=== PATIENT | male | born 1965 | race Caucasian/White ===

== ENCOUNTER → 2017-01-18 | Outpatient (CLI) | payer MEDICARE ==
--- NOTE | 2017-01-18 12:04 | XR ---
Cervical spine HISTORY: Pain down left arm 5 views of the cervical spine submitted on 7 images Correlation to prior exam 05/04/2012 There is multilevel spondylosis. C7-T1 not well seen. Some loss of disc height present at C2-3, C3-4, C5-6. Cervical vertebral bodies show preserved height and alignment, bone mineralization at the visu alized levels. Some foraminal encroachment is present bilaterally at C3-4, C5-6 due to lateral extens ion of endplates. IMPRESSION: Similar findings to prior exam. Degenerative disc disease with foraminal encroachment.
== END | disposition home or self-care (01) ==
LOC: RADXRMAIN 11:00
PROVIDERS: ATTEND Internal Medicine
DX: M50.30 Other cervical disc degeneration, unspecified cervical region (principal)
CPT/HCPCS: 72050

== ENCOUNTER 2022-06-17 16:57 | Inpatient (IN) | payer MEDICARE ==
[2022-06-17] MEDS ORDERED: SODIUM CHLORIDE 0.9% 500 ML 500 ML IV ONE (17:38)
--- NOTE | 2022-06-17 17:38 | ED ---
Weakness HPI - General Chief complaint: Weakness Stated complaint: Dizziness Time Seen by Provider: 06/17/22 17:15 Source: EMS Mode of arrival: EMS Limitations: no limitations - History of Present Illness Initial comments: 56-year-old male with past history of hypertension, coronary artery disease, CVA, chronic renal failure who presents to the emergency department with weakness and presyncope. He is supposed to be on several medications however states he has not taken them in over a year. He stopped seeking medical care when Covid hit and has not been out of the house since. He has had chronic lower extremity wounds with recurrent cellulitis. He used to see wound care once a week however he has been doing his own wrappings recently. He presents today because he was ambulating to go to the bathroom when he became extremely short of breath and that he was given a passout. Called to his nephew and instructed him to call 911. He denies any chest pain. Does admit to shortness of breath. Has weeping lower extremities however states that this has not been any worse than "what it has been over the past 15 years". He denies any abdomin al pain. No black or bloody stools. No other alleviating, precipitating or modifying factors - Related Data Home Medications Medication Instructions Recorded Confirmed No Known Home Medications 06/17/22 06/17/22 Allergies Allergy/AdvReac Type Severity Reaction Status Date / Time Penicillins Allergy Unknown Unknown Verified 06/09/18 08:22 Childhood adhesive Allergy Rash/Hives Verified 06/09/18 08:22 peanut AdvReac Nausea & Verified 06/09/18 08:22 Vomiting Review of Systems ROS Statement: Those systems with pertinent positive or pertinent negative responses have been documented in the HPI. ROS Other: All systems not noted in ROS Statement are negative. Past Medical History Past Medical History: Blood Disorder, Coronary Artery Disease (CAD), Heart Failure, CVA/TIA, Diabetes Mellitus, Hyperlipidemia, Hypertension, Renal Disease, Sleep Apnea/CPAP/BIPAP Additional Past Medical History / Comment(s): Chronic back pain; USES C-PAP; kidney stones, RENAL FAILURE; NEUROPATHY. WEARS COPPER FITBOOTS D/T PVD. POSS CVA 10/2013, PVD History of Any Multi-Drug Resistant Organisms: MRSA, VRE Date of last positivie culture/infection: 05/09/19-MRSA; 07/05/08-VRE MDRO Source:: Right Leg-MRSA; VRE Leg wound Additional Past Surgical History / Comment(s): kidney stones removed, HX DR ARMENTA TUBE, CYSTOSCOPY; DEBRIDMENTS TO LEGS X6 IN 2009 Past Anesthesia/Blood Transfusion Reactions: No Reported Reaction Past Psychological History: Anxiety, Depression Past Alcohol Use History: None Reported Past Drug Use History: None Reported - Past Family History Mother Family Medical History: Cancer Father Family Medical History: Hypertension General Exam Limitations: no limitations General appearance: alert, in no apparent distress Head exam: Present: atraumatic, normocephalic, normal inspection ENT exam: Present: mucous membranes dry Neck exam: Present: normal inspection. Absent: tenderness, meningismus, lymphadenopathy Respiratory exam: Present: normal lung sounds bilaterally. Absent: respiratory distress, wheezes, rales, rhonchi, stridor Cardiovascular Exam: Present: regular rate, normal rhythm, normal heart sounds. Absent: systolic murmur, diastolic murmur, rubs, gallop, clicks Extremities exam: Present: other (cellulitis b/l le with open, purulent wounds. malodorous) Neurological exam: Present: alert, oriented X3, CN II-XII intact Psychiatric exam: Present: normal affect Course Vital Signs 06/17/22 06/17/22 06/17/22 17:12 17:17 17:30 Temperature 98.8 F Pulse Rate 96 100 Respiratory 22 20 15 Rate Blood Pressure 95/52 95/52 O2 Sat by Pulse 96 Oximetry 06/17/22 06/17/22 06/17/22 17:35 18:00 18:30 Temperature Pulse Rate 103 H 101 H 89 Respiratory 18 21 17 Rate Blood Pressure 131/60 131/60 122/62 O2 Sat by Pulse 96 Oximetry 06/17/22 06/17/22 06/17/22 19:00 19:30 20:00 Temperature Pulse Rate 87 92 83 Respiratory 18 15 20 Rate Blood Pressure 113/50 124/59 140/65 O2 Sat by Pulse Oximetry EKG Findings - EKG Comments: EKG Findings:: EKG demonstrates sinus rhythm with a rate of 89. NV interval 203. QRS 116. QTC of 434. There is a left bundle branch block. No acute ST segment elevations Medical Decision Making - Medical Decision Making Was pt. sent in by a medical professional or institution (Dr., PA, VEHICLE WASHER, urgent care, hospital, or fdc...) When possible be specific @ -No Did you speak to anyone other than the patient for history (EMS, parent, family, police, friend...)? What history was obtained from this source @ -Patients nephew Did you review nursing and triage notes (agree or disagree)? Why? @ -I reviewed and agree with nursing and triage notes Were old charts reviewed (outside hosp., previous admission, EMS record, old EKG, old radiological studies, urgent care reports/EKG's, fdc records)? Report findings @ -No old charts were reviewed Differential Diagnosis (chest pain, altered mental status, abdominal pain women, abdominal pain men, vaginal bleeding, weakness, fever, dyspnea, syncope, headache, dizziness, GI bleed, back pain, seizure, CVA, palpatations, mental health, musculoskeletal)? @ -cellulitis, gangrene, venous stasis ulcers, necrotizing fascitis EKG interpreted by me (3pts min.). @ -yes X-rays interpreted by me (1pt min.). @ -yes CT interpreted by me (1pt min.). @ -None done U/S interpreted by me (1pt. min.). @ -None done What testing was considered but not performed or refused? (CT, X-rays, U/S, labs)? Why? @ -None What meds were considered but not given or refused? Why? @ -None Did you discuss the management of the patient with other professionals (professionals i.e. SARAHI Collins, VEHICLE WASHER, lab, RT, psych nurse, high school social studies teacher, materials and processes manager, teacher, special weapons unit officer, case briefer)? Give summary @ -Dr caballero Was smoking cessation discussed for >3mins.? @ -No Was critical care preformed (if so, how long)? @ -No Were there social determinants of health that impacted care today? How? (Homelessness, low income, unemployed, alcoholism, drug addiction, transportation, low edu. Level, literacy, decrease access to med. care, fci, rehab)? @ -obesity making transportation difficult Was there de-escalation of care discussed even if they declined (Discuss DNR or withdrawal of care, Hospice)? DNR status @ -No What co-morbidities impacted this encounter? (DM, HTN, Smoking, COPD, CAD, Cancer, CVA, ARF, Chemo, Hep., AIDS, mental health diagnosis, sleep apnea, morbid obesity)? @ -obesity, dm, parkinsons Was patient admitted / discharged? Hospital course, mention meds given and route, prescriptions, significant lab abnormalities, going to OR and other pertinent info. @ -Upon arrival patient was placed into room 6. There are history of physical exam is performed. IV access is established. Patient was given a 500 mL bolus of normal saline. IV is established and laboratories is a conducted. White blood cell count 18.7. Hemoglobin 7.6. Creatinine 1.38. Glucose 183. Lactic acid is 3.5. Chest x-ray demonstrates no fluid overload and therefore he is started on 75 mL per hour. Lower extremities are weeping. I did take a culture. He is started on IV clindamycin after blood cultures are obtained. Recommended admission and spoke with Dr. Nieves who agreed to admit the patient. I we will place Dr. Bonilla on consult as well as wound care. Patient was agreeable and awaiting a bed on the floor Undiagnosed new problem with uncertain prognosis? @ -yes Drug Therapy requiring intensive monitoring for toxicity (Heparin, Nitro, Insulin, Cardizem)? @ -No Were any procedures done? @ -No Diagnosis/symptom? @ - acute b/l le cellulitis, anemia, leuocytosis, medical non compliance Acute, or Chronic, or Acute on Chronic? @ -acute Uncomplicated (without systemic symptoms) or Complicated (systemic symptoms)? @ -complicated Side effects of treatment? @ -No Exacerbation, Progression, or Severe Exacerbation? @ -No Poses a threat to life or bodily function? How? (Chest pain, USA, MD, pneumonia, PE, COPD, DKA, ARF, appy, cholecystitis, CVA, Diverticulitis, Homicidal, Suicidal, threat to staff... and all critical care pts) @ -yes - Lab Data Result diagrams: 06/23/22 08:04 06/23/22 08:04 Lab Results 06/17/22 06/17/22 06/17/22 Range/Units 17:40 17:40 17:40 WBC 18.7 H (3.8-10.6) k/uL RBC 3.22 L (4.30-5.90) m/uL Hgb 7.6 L (13.0-17.5) gm/dL Hct 25.9 L (39.0-53.0) % MCV 80.5 (80.0-100.0) fL MCH 23.8 L (25.0-35.0) pg MCHC 29.5 L (31.0-37.0) g/dL RDW 17.3 H (11.5-15.5) % Plt Count 387 (150-450) k/uL MPV 7.7 Neutrophils % 79 % Lymphocytes % 12 % Monocytes % 4 % Eosinophils % 4 % Basophils % 0 % Neutrophils # 14.7 H (1.3-7.7) k/uL Lymphocytes # 2.3 (1.0-4.8) k/uL Monocytes # 0.7 (0-1.0) k/uL Eosinophils # 0.7 (0-0.7) k/uL Basophils # 0.0 (0-0.2) k/uL Hypochromasia Marked Anisocytosis Slight Microcytosis Slight PT 11.6 (9.0-12.0) sec INR 1.1 (<1.2) APTT 21.1 L (22.0-30.0) sec Sodium 139 (137-145) mmol/L Potassium 5.6 H (3.5-5.1) mmol/L Chloride 106 (98-107) mmol/L Carbon Dioxide 21 L (22-30) mmol/L Anion Gap 12 mmol/L BUN 52 H (9-20) mg/dL Creatinine 1.38 H (0.66-1.25) mg/dL Est GFR (CKD-EPI)AfAm 65 (>60 ml/min/1.73 sqM) Est GFR (CKD-EPI)NonAf 56 (>60 ml/min/1.73 sqM) Glucose 183 H (74-99) mg/dL Lactic Ac Sepsis Rflx Plasma Lactic Acid Cesario (0.7-2.0) mmol/L Calcium 8.2 L (8.4-10.2) mg/dL Magnesium 1.6 (1.6-2.3) mg/dL Total Bilirubin 0.3 (0.2-1.3) mg/dL AST 21 (17-59) U/L ALT 20 (4-49) U/L Alkaline Phosphatase 112 (38-126) U/L Troponin I (0.000-0.034) ng/mL NT-Pro-B Natriuret Pep pg/mL Total Protein 7.0 (6.3-8.2) g/dL Albumin 3.0 L (3.5-5.0) g/dL TSH 3.890 (0.465-4.680) mIU/L 06/17/22 06/17/22 06/17/22 Range/Units 17:40 17:40 17:40 WBC (3.8-10.6) k/uL RBC (4.30-5.90) m/uL Hgb (13.0-17.5) gm/dL Hct (39.0-53.0) % MCV (80.0-100.0) fL MCH (25.0-35.0) pg MCHC (31.0-37.0) g/dL RDW (11.5-15.5) % Plt Count (150-450) k/uL MPV Neutrophils % % Lymphocytes % % Monocytes % % Eosinophils % % Basophils % % Neutrophils # (1.3-7.7) k/uL Lymphocytes # (1.0-4.8) k/uL Monocytes # (0-1.0) k/uL Eosinophils # (0-0.7) k/uL Basophils # (0-0.2) k/uL Hypochromasia Anisocytosis Microcytosis PT (9.0-12.0) sec INR (<1.2) APTT (22.0-30.0) sec Sodium (137-145) mmol/L Potassium (3.5-5.1) mmol/L Chloride (98-107) mmol/L Carbon Dioxide (22-30) mmol/L Anion Gap mmol/L BUN (9-20) mg/dL Creatinine (0.66-1.25) mg/dL Est GFR (CKD-EPI)AfAm (>60 ml/min/1.73 sqM) Est GFR (CKD-EPI)NonAf (>60 ml/min/1.73 sqM) Glucose (74-99) mg/dL Lactic Ac Sepsis Rflx Plasma Lactic Acid Cesario 3.5 H* (0.7-2.0) mmol/L Calcium (8.4-10.2) mg/dL Magnesium (1.6-2.3) mg/dL Total Bilirubin (0.2-1.3) mg/dL AST (17-59) U/L ALT (4-49) U/L Alkaline Phosphatase (38-126) U/L Troponin I <0.012 (0.000-0.034) ng/mL NT-Pro-B Natriuret Pep 1410 pg/mL Total Protein (6.3-8.2) g/dL Albumin (3.5-5.0) g/dL TSH (0.465-4.680) mIU/L 06/17/22 Range/Units 18:16 WBC (3.8-10.6) k/uL RBC (4.30-5.90) m/uL Hgb (13.0-17.5) gm/dL Hct (39.0-53.0) % MCV (80.0-100.0) fL MCH (25.0-35.0) pg MCHC (31.0-37.0) g/dL RDW (11.5-15.5) % Plt Count (150-450) k/uL MPV Neutrophils % % Lymphocytes % % Monocytes % % Eosinophils % % Basophils % % Neutrophils # (1.3-7.7) k/uL Lymphocytes # (1.0-4.8) k/uL Monocytes # (0-1.0) k/uL Eosinophils # (0-0.7) k/uL Basophils # (0-0.2) k/uL Hypochromasia Anisocytosis Microcytosis PT (9.0-12.0) sec INR (<1.2) APTT (22.0-30.0) sec Sodium (137-145) mmol/L Potassium (3.5-5.1) mmol/L Chloride (98-107) mmol/L Carbon Dioxide (22-30) mmol/L Anion Gap mmol/L BUN (9-20) mg/dL Creatinine (0.66-1.25) mg/dL Est GFR (CKD-EPI)AfAm (>60 ml/min/1.73 sqM) Est GFR (CKD-EPI)NonAf (>60 ml/min/1.73 sqM) Glucose (74-99) mg/dL Lactic Ac Sepsis Rflx Y Plasma Lactic Acid Cesario (0.7-2.0) mmol/L Calcium (8.4-10.2) mg/dL Magnesium (1.6-2.3) mg/dL Total Bilirubin (0.2-1.3) mg/dL AST (17-59) U/L ALT (4-49) U/L Alkaline Phosphatase (38-126) U/L Troponin I (0.000-0.034) ng/mL NT-Pro-B Natriuret Pep pg/mL Total Protein (6.3-8.2) g/dL Albumin (3.5-5.0) g/dL TSH (0.465-4.680) mIU/L Disposition Clinical Impression: Bilateral lower leg cellulitis, Anemia, Leukocytosis, Lactic acidosis Disposition: ADMITTED IP TO THIS [facility] Condition: Serious Is patient prescribed a controlled substance at d/c from ED?: No Time of Disposition: 20:24 Decision to Admit Reason: Admit from EC Decision Date: 06/17/22 Decision Time: 20:24
[2022-06-17] MEDS ORDERED: VANCOMYCIN IV PER PHARMACY 1 EACH MISC MISCELLANE PRN (17:42)
[2022-06-17] MEDS ORDERED: CLINDAMYCIN 600 MG in DEXTROSE 5% IN WATER 50 ML IVPB STA ×2 (17:48)
[2022-06-17] MEDS ORDERED: VANCOMYCIN 2,500 MG in SODIUM CHLORIDE 0.9% 500 ML 500 ML IVPB STA (17:50)
[2022-06-17 17:54] LABS: Anisocytosis Slight; Basophils % (A) 0 %; Eosinophils # (A) 0.7 k/uL (0-0.7); Eosinophils % (A) 4 %; HCT 25.9 % (39.0-53.0); HGB 7.6 gm/dL (13.0-17.5); Hypochromasia Marked; Lymphocytes # (A) 2.3 k/uL (1.0-4.8); Lymphocytes % (A) 12 %; MCH 23.8 pg (25.0-35.0); MCHC 29.5 g/dL (31.0-37.0); MCV 80.5 fL (80.0-100.0); Mean Platelet Volume 7.7; Microcytosis Slight; Monocytes # (A) 0.7 k/uL (0-1.0); Monocytes % (A) 4 %; Neutrophils # (A) 14.7 k/uL (1.3-7.7); Neutrophils % (A) 79 %; Platelet Count 387 k/uL (150-450); RBC 3.22 m/uL (4.30-5.90); RDW 17.3 % (11.5-15.5); WBC 18.7 k/uL (3.8-10.6)
[2022-06-17 18:12] LABS: INR 1.1 (<1.2); Prothrombin Time 11.6 sec (9.0-12.0)
[2022-06-17 18:13] LABS: ALT 20 U/L (4-49); AST 21 U/L (17-59); African American GFR (CKD) 65 (>60 ml/min/1.73 sqM); Alkaline Phosphatase 112 U/L (38-126); Anion Gap 12 mmol/L; Blood Urea Nitrogen 52 mg/dL (9-20); Calcium 8.2 mg/dL (8.4-10.2); Carbon Dioxide 21 mmol/L (22-30); Chloride 106 mmol/L (98-107); Glucose 183 mg/dL (74-99); Magnesium 1.6 mg/dL (1.6-2.3); Non-African American GFR(CKD) 56 (>60 ml/min/1.73 sqM); Potassium 5.6 mmol/L (3.5-5.1); Sodium 139 mmol/L (137-145); Total Bilirubin 0.3 mg/dL (0.2-1.3)
[2022-06-17 18:14] LABS: Partial Thromboplastin Time 21.1 sec (22.0-30.0)
--- NOTE | 2022-06-17 19:25 | XR ---
EXAMINATION: XR chest 2V: 06/17/2022 5:58 PM CLINICAL INDICATION: Weakness TECHNIQUE: Frontal and lateral views COMPARISON: 10/06/2014 frontal and lateral views FINDINGS: The overlying soft tissues are prominent. Hemidiaphragms are elevated consistent with relatively low lung inflation at the moment of x-ray exposure. Lungs appear to be clear. The pleural spaces are negative. The cardiac silhouette appears to be moderately enlarged, unchanged. The skeletal structures and soft tissues are negative for acute findings. IMPRESSION: No definite acute radiographic process.
[2022-06-17] MEDS ORDERED: fentaNYL (PF) 50 MCG/ML 2 ML AMP IVP STA (19:43)
[2022-06-17] MEDS ORDERED: NALOXONE 0.4 MG/ML 1 ML VIAL IV PRN (20:24)
[2022-06-17] MEDS ORDERED: MAGNESIUM SULFATE-D5W PMX 1 GM in DEXTROSE/WATER 1 100ML.BAG IVPB ONE (20:31)
[2022-06-17] MEDS: SODIUM CHLORIDE 0.9% 1,000 ML IV SCH (20:40)
[2022-06-17 21:55] LABS: Appearance,Urine Clear (Clear); Bilirubin,Urine Negative (Negative); Blood,Urine Negative (Negative); Color,Urine Yellow; Glucose,Urine (UA) Negative (Negative); Ketones,Urine Negative (Negative); Leukocyte Esterase,Urine Negative (Negative); Nitrite,Urine Negative (Negative); Protein,Urine Trace (Negative); Specific Gravity,Urine 1.015 (1.001-1.035); Urobilinogen,Urine <2.0 mg/dL (<2.0)
[2022-06-18] MEDS: CLINDAMYCIN 600 MG in DEXTROSE 5% IN WATER 50 ML IVPB SCH ×8 (00:44→23:30)
[2022-06-18 07:17] LABS: Glucose,Whole Blood 143 mg/dL (70-110)
[2022-06-18] MEDS ORDERED: DEXTROSE 50% SYRINGE 50 ML IVP PRN ×2 (07:23)
[2022-06-18] MEDS: INSULIN ASPART (NovoLOG) 100 UNIT/ML VIAL SQ SCH ×4 (07:47→21:26)
[2022-06-18] MEDS: SODIUM CHLORIDE 0.9% 1,000 ML IV SCH ×2 (10:27→23:31)
[2022-06-18] MEDS: VANCOMYCIN 2,500 MG in SODIUM CHLORIDE 0.9% 500 ML 500 ML IVPB SCH (10:27)
[2022-06-18 11:27] LABS: Anion Gap 7.1 mmol/L (10.00-18.00); BUN/Creat Ratio 36.25 Ratio (12.00-20.00); Blood Urea Nitrogen 49.3 mg/dL (9.0-27.0); Calcium 8.2 mg/dL (8.7-10.3); Potassium 4.9 mmol/L (3.5-5.5)
--- NOTE | 2022-06-18 11:28 | P.HPIM ---
History of Present Illness H&P Date: 06/18/22 Chief Complaint: Weakness bilateral lower extremity cellulitis leukocytosis This is a 56-year-old male patient who presented to the ER with concerns of weakness in lower extremity wounds. Patient reports he has had increasing weakness prompting him to call EMS for further assistance Patient has not been into see his primary care doctor in almost years has not taken his medications in over a year. Patient reports that he did not have easy accessibility to rides and getting out of the house. Patient reports he has been dealing with lower extremity wounds that he has been treating at home without improvement. Patient has a past medical history of hypertension, coronary artery disease, CVA, chronic renal disease. Chest x-ray completed showing no definitive acute r adiographic process. Troponin negative. WBC 18.7. Hemoglobin 7.6.. At this time patient has been started on IV antibiotics blood cultures ordered. Wound cultures ordered. Infectious disease and wound care service is consulted. Will reorder home medication according to most recent PCP visit. We'll also consult PT OT and social work services for discharge planning and assessment of home situation Review of Systems Please refer to HPI otherwise unremarkable Past Medical History Past Medical History: Blood Disorder, Coronary Artery Disease (CAD), Heart Failure, CVA/TIA, Diabetes Mellitus, Hyperlipidemia, Hypertension, Renal Disease, Sleep Apnea/CPAP/BIPAP Additional Past Medical History / Comment(s): Chronic back pain; USES C-PAP; kidney stones, RENAL FAILURE; NEUROPATHY. WEARS COPPER FITBOOTS D/T PVD. POSS CVA 10/2013, PVD History of Any Multi-Drug Resistant Organisms: MRSA, VRE Date of last positivie culture/infection: 05/09/19-MRSA; 07/05/08-VRE MDRO Source:: Right Leg-MRSA; VRE Leg wound Additional Past Surgical History / Comment(s): kidney stones removed, HX DRAINAGE TUBE, CYSTOSCOPY; DEBRIDMENTS TO LEGS X6 IN 2008 Past Anesthesia/Blood Transfusion Reactions: No Reported Reaction Past Psychological History: Anxiety, Depression Past Alcohol Use History: None Reported Past Drug Use History: None Reported - Past Family History Mother Family Medical History: Cancer Father Family Medical History: Hypertension Medications and Allergies Home Medications Medication Instructions Recorded Confirmed Type No Known Home Medications 06/17/22 06/17/22 History Allergies Allergy/AdvReac Type Severity Reaction Status Date / Time Penicillins Allergy Unknown Unknown Verified 06/09/18 08:22 Childhood adhesive Allergy Rash/Hives Verified 06/09/18 08:22 peanut AdvReac Nausea & Verified 06/09/18 08:22 Vomiting Physical Exam Vitals: Vital Signs Temp Pulse Pulse Resp BP BP Pulse Ox 06/18/22 07:12 97.4 F L 85 18 124/65 94 L 06/18/22 01:25 98.3 F 88 18 146/64 95 06/17/22 21:53 97.7 F 82 18 117/62 94 L 06/17/22 20:00 83 20 140/65 06/17/22 19:30 92 15 124/59 06/17/22 19:00 87 18 113/50 06/17/22 18:30 89 17 122/62 06/17/22 18:00 101 H 21 131/60 06/17/22 17:35 103 H 18 131/60 96 06/17/22 17:30 100 15 95/52 06/17/22 17:17 20 06/17/22 17:12 98.8 F 96 22 95/52 96 Intake and Output 06/17/22 06/18/22 06/18/22 22:59 06:59 14:59 Intake Total 650 Balance 650 Intake: Intake, IV Titration 650 Amount Clindamycin 600 mg In 50 Dextrose 5% in Water 50 ml @ 50 mls/hr IVPB Q8HR [facility] Rx#:[id number] Magnesium Sulfate-D5w Pmx 100 1 gm In Dextrose/Water 1 100ml.bag @ 100 mls/hr IVPB ONCE ONE Rx#: [id number] Vancomycin 2,500 mg In 500 Sodium Chloride 0.9% 500 ml 500 ml @ 167 mls/hr IVPB Q16H [facility] Rx#: [id number] Other: Voiding Method Bedpan # Voids 2 Weight 185.973 kg Head normocephalic Neck supple Lungs clear to auscultation bilaterally no wheezing or crackles Heart regular rate and rhythm S1-S2, no rub or gallop Abdomen is soft nontender nondistended positive bowel sounds no hepatosplenomegaly Extremities bilateral lower extremity wounds and cellulitis. Serosanguineous drainage noted Neuro alert and orientated to 3 Results CBC & Chem 7: 06/17/22 17:40 06/18/22 07:22 Labs: Abnormal Lab Results - Last 24 Hours (Table) 06/17/22 06/17/22 06/17/22 Range/Units 17:40 17:40 17:40 WBC 18.7 H (3.8-10.6) k/uL RBC 3.22 L (4.30-5.90) m/uL Hgb 7.6 L (13.0-17.5) gm/dL Hct 25.9 L (39.0-53.0) % MCH 23.8 L (25.0-35.0) pg MCHC 29.5 L (31.0-37.0) g/dL RDW 17.3 H (11.5-15.5) % Neutrophils # 14.7 H (1.3-7.7) k/uL APTT 21.1 L (22.0-30.0) sec Potassium 5.6 H (3.5-5.1) mmol/L Carbon Dioxide 21 L (22-30) mmol/L BUN 52 H (9-20) mg/dL Creatinine 1.38 H (0.66-1.25) mg/dL Glucose 183 H (74-99) mg/dL POC Glucose (mg/dL) (70-110) mg/dL Hemoglobin A1c (0.0-6.0) % Plasma Lactic Acid Cesario (0.7-2.0) mmol/L Calcium 8.2 L (8.4-10.2) mg/dL Albumin 3.0 L (3.5-5.0) g/dL Urine Protein (Negative) 06/17/22 06/17/22 06/17/22 Range/Units 17:40 21:20 22:54 WBC (3.8-10.6) k/uL RBC (4.30-5.90) m/uL Hgb (13.0-17.5) gm/dL Hct (39.0-53.0) % MCH (25.0-35.0) pg MCHC (31.0-37.0) g/dL RDW (11.5-15.5) % Neutrophils # (1.3-7.7) k/uL APTT (22.0-30.0) sec Potassium (3.5-5.1) mmol/L Carbon Dioxide (22-30) mmol/L BUN (9-20) mg/dL Creatinine (0.66-1.25) mg/dL Glucose (74-99) mg/dL POC Glucose (mg/dL) (70-110) mg/dL Hemoglobin A1c 6.8 H (0.0-6.0) % Plasma Lactic Acid Cesario 3.5 H* (0.7-2.0) mmol/L Calcium (8.4-10.2) mg/dL Albumin (3.5-5.0) g/dL Urine Protein Trace H (Negative) 06/18/22 06/18/22 Range/Units 07:16 07:22 WBC (3.8-10.6) k/uL RBC (4.30-5.90) m/uL Hgb (13.0-17.5) gm/dL Hct (39.0-53.0) % MCH (25.0-35.0) pg MCHC (31.0-37.0) g/dL RDW (11.5-15.5) % Neutrophils # (1.3-7.7) k/uL APTT (22.0-30.0) sec Potassium (3.5-5.1) mmol/L Carbon Dioxide (22-30) mmol/L BUN (9-20) mg/dL Creatinine 1.38 H (0.66-1.25) mg/dL Glucose (74-99) mg/dL POC Glucose (mg/dL) 143 H (70-110) mg/dL Hemoglobin A1c (0.0-6.0) % Plasma Lactic Acid Cesario (0.7-2.0) mmol/L Calcium (8.4-10.2) mg/dL Albumin (3.5-5.0) g/dL Urine Protein (Negative) Microbiology - Last 24 Hours (Table) 06/17/22 17:40 Blood Culture Gram Stain - Preliminary Blood 06/17/22 17:40 Blood Culture - Final Blood 06/17/22 17:40 Anaerobic Culture - Preliminary Leg - Left 06/17/22 17:40 Wound Culture - Preliminary Leg - Left Thrombosis Risk Factor Assmnt - Choose All That Apply Any of the Below Risk Factors Present?: Yes Each Factor Represents 1 point: Age 41-60 years, Obesity (BMI >25), Swollen legs (current) Other Risk Factors: No Other congenital or acquired thrombophilia - If yes, enter type in comment: No Thrombosis Risk Factor Assessment Total Risk Factor Score: 3 Thrombosis Risk Factor Assessment Level: Moderate Risk Assessment and Plan Assessment: 1. Lower extremity cellulitis with elevated white blood cell count 2. Noncompliance with medication patient reports he has not been taking his meds in over here and has not seen his PCP in over 2 years 3. History of CVA 4. Morbid obesity 5. History of essential hypertension 6. Diabetes mellitus type 2. Hemoglobin A1c 6.8. Patient has not taken medication in over a year 7. Chronic venous stasis 8. History of Parkinson's disease 9. Anemia hemoglobin 7.6 will order stool for occult blood and iron studies 10. Hyperkalemia potassium 5.6 11. Acute kidney injury creatinine 1.3 bun 52 DVT prophylaxis SCDs due to anemia Infectious disease consulted for lower extremity cellulitis patient maintained on IV antibiotics will consult neurology services to assess her Parkinson medication since patient has not been on for over a year surgical services also consulted for anemia Repeat labs ordered blood and wound culture ordered Time with Patient: Greater than 30 (Greater than 60% of the total time spent in counseling and coordination of care.)
--- NOTE | 2022-06-18 11:30 | P.CONS ---
History of Present Illness - Reason for Consult Consult date: 06/18/22 wound care - History of Present Illness This is a 56-year-old gentleman who is known to the wound care center however he has not been seen in the last 3 years. Patient stopped coming to the wound care center approximately 3 years ago with open ulcerations. Patient states that he has been treating the ulcerations at home on his own. However they've progressively gotten worse and came in for treatment. Patient has multiple open ulcerations to lateral aspects of bilateral lower extremities and dorsal feet. Ulcerations have significant amount of slough and nonviable tissue present with minimal to no granulation noted. The area wound does show erythema and maceration. Patient has serous drainage noted. Review Of Systems: Constitutional: No fever, no chills, no night sweats. No weight change. No weakness, fatigue or lethargy. No daytime sleepiness. Integumentary:reports wounds, no lesions. No rash or pruritus. No unusual bruising. No change in hair or nails. Physical exam: General Appearance: Alert, cooperative, no distress, appears stated age. Skin: See HPI all other Skin color, texture, tugor normal, no rashes or lesions. Neurologic: Alert oriented x3 Assessment: 1. Nonhealing ulceration left lower extremity with fat layer exposure 2. Nonhealing ulceration right lower extremity with fat layer exposure 3. Nonhealing ulceration right foot with fatty layer exposure 4. Nonhealing ulceration left foot fat layer exposure 5. Diabetes with foot ulceration 6. Diabetes with skin ulceration Plan: 1. Apply Santyl, saline moistened gauze, dry gauze, rolled gauze and secure with paper tape. Patient would benefit from advanced wound care and wound care center. We will be happy to see the patient upon discharge. Thank you for the consultation any questions contact the wound care center DNP note has been reviewed and discussed with Dr. Bennett and the impression and plan of care has been directed as dictated. Past Medical History Past Medical History: Blood Disorder, Coronary Artery Disease (CAD), Heart Failure, CVA/TIA, Diabetes Mellitus, Hyperlipidemia, Hypertension, Renal Disease, Sleep Apnea/CPAP/BIPAP Additional Past Medical History / Comment(s): Chronic back pain; USES C-PAP; kidney stones, RENAL FAILURE; NEUROPATHY. WEARS COPPER FITBOOTS D/T PVD. 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 MDRO Source:: Right Leg-MRSA; VRE Leg wound Additional Past Surgical History / Comment(s): kidney stones removed, HX DRAINAGE TUBE, CYSTOSCOPY; DEBRIDMENTS TO LEGS X6 IN 2008 Past Anesthesia/Blood Transfusion Reactions: No Reported Reaction Past Psychological History: Anxiety, Depression Past Alcohol Use History: None Reported Past Drug Use History: None Reported - Past Family History Mother Family Medical History: Cancer Father Family Medical History: Hypertension Medications and Allergies Home Medications Medication Instructions Recorded Confirmed Type No Known Home Medications 06/17/22 06/17/22 History Allergies Allergy/AdvReac Type Severity Reaction Status Date / Time Penicillins Allergy Unknown Unknown Verified 06/09/18 08:22 Childhood adhesive Allergy Rash/Hives Verified 06/09/18 08:22 peanut AdvReac Nausea & Verified 06/09/18 08:22 Vomiting Physical Exam Vitals: Vital Signs Temp Pulse Pulse Resp BP BP Pulse Ox 06/18/22 07:12 97.4 F L 85 18 124/65 94 L 06/18/22 01:25 98.3 F 88 18 146/64 95 06/17/22 21:53 97.7 F 82 18 117/62 94 L 06/17/22 20:00 83 20 140/65 06/17/22 19:30 92 15 124/59 06/17/22 19:00 87 18 113/50 06/17/22 18:30 89 17 122/62 06/17/22 18:00 101 H 21 131/60 06/17/22 17:35 103 H 18 131/60 96 06/17/22 17:30 100 15 95/52 06/17/22 17:17 20 06/17/22 17:12 98.8 F 96 22 95/52 96 Intake and Output 06/17/22 06/18/22 06/18/22 22:59 06:59 14:59 Intake Total 650 Balance 650 Intake: Intake, IV Titration 650 Amount Clindamycin 600 mg In 50 Dextrose 5% in Water 50 ml @ 50 mls/hr IVPB Q8HR [facility] Rx#:[id number] Magnesium Sulfate-D5w Pmx 100 1 gm In Dextrose/Water 1 100ml.bag @ 100 mls/hr IVPB ONCE ONE Rx#: [id number] Vancomycin 2,500 mg In 500 Sodium Chloride 0.9% 500 ml 500 ml @ 167 mls/hr IVPB Q16H [facility] Rx#: [id number] Other: Voiding Method Bedpan # Voids 2 Weight 185.973 kg Results CBC & Chem 7: 06/17/22 17:40 06/18/22 07:22 Labs: Abnormal Lab Results - Last 24 Hours (Table) 06/17/22 06/17/22 06/17/22 Range/Units 17:40 17:40 17:40 WBC 18.7 H (3.8-10.6) k/uL RBC 3.22 L (4.30-5.90) m/uL Hgb 7.6 L (13.0-17.5) gm/dL Hct 25.9 L (39.0-53.0) % MCH 23.8 L (25.0-35.0) pg MCHC 29.5 L (31.0-37.0) g/dL RDW 17.3 H (11.5-15.5) % Neutrophils # 14.7 H (1.3-7.7) k/uL APTT 21.1 L (22.0-30.0) sec Potassium 5.6 H (3.5-5.1) mmol/L Carbon Dioxide 21 L (22-30) mmol/L Anion Gap (10.00-18.00) mmol/L BUN 52 H (9-20) mg/dL Creatinine 1.38 H (0.66-1.25) mg/dL Est GFR (CKD-EPI)NonAf (60.0-200.0) BUN/Creatinine Ratio (12.00-20.00) Ratio Glucose 183 H (74-99) mg/dL POC Glucose (mg/dL) (70-110) mg/dL Hemoglobin A1c (0.0-6.0) % Plasma Lactic Acid Cesario (0.7-2.0) mmol/L Calcium 8.2 L (8.4-10.2) mg/dL Albumin 3.0 L (3.5-5.0) g/dL Urine Protein (Negative) 06/17/22 06/17/22 06/17/22 Range/Units 17:40 21:20 22:54 WBC (3.8-10.6) k/uL RBC (4.30-5.90) m/uL Hgb (13.0-17.5) gm/dL Hct (39.0-53.0) % MCH (25.0-35.0) pg MCHC (31.0-37.0) g/dL RDW (11.5-15.5) % Neutrophils # (1.3-7.7) k/uL APTT (22.0-30.0) sec Potassium (3.5-5.1) mmol/L Carbon Dioxide (22-30) mmol/L Anion Gap (10.00-18.00) mmol/L BUN (9-20) mg/dL Creatinine (0.66-1.25) mg/dL Est GFR (CKD-EPI)NonAf (60.0-200.0) BUN/Creatinine Ratio (12.00-20.00) Ratio Glucose (74-99) mg/dL POC Glucose (mg/dL) (70-110) mg/dL Hemoglobin A1c 6.8 H (0.0-6.0) % Plasma Lactic Acid Cesario 3.5 H* (0.7-2.0) mmol/L Calcium (8.4-10.2) mg/dL Albumin (3.5-5.0) g/dL Urine Protein Trace H (Negative) 06/18/22 06/18/22 06/18/22 Range/Units 07:16 07:22 07:22 WBC (3.8-10.6) k/uL RBC (4.30-5.90) m/uL Hgb (13.0-17.5) gm/dL Hct (39.0-53.0) % MCH (25.0-35.0) pg MCHC (31.0-37.0) g/dL RDW (11.5-15.5) % Neutrophils # (1.3-7.7) k/uL APTT (22.0-30.0) sec Potassium (3.5-5.1) mmol/L Carbon Dioxide (22-30) mmol/L Anion Gap 7.10 L (10.00-18.00) mmol/L BUN 49.3 H (9-20) mg/dL Creatinine 1.38 H (0.66-1.25) mg/dL Est GFR (CKD-EPI)NonAf 57.0 L (60.0-200.0) BUN/Creatinine Ratio 36.25 H (12.00-20.00) Ratio Glucose 124 H (74-99) mg/dL POC Glucose (mg/dL) 143 H (70-110) mg/dL Hemoglobin A1c (0.0-6.0) % Plasma Lactic Acid Cesario (0.7-2.0) mmol/L Calcium 8.2 L (8.4-10.2) mg/dL Albumin (3.5-5.0) g/dL Urine Protein (Negative) Microbiology - Last 24 Hours (Table) 06/17/22 17:40 Blood Culture Gram Stain - Preliminary Blood 06/17/22 17:40 Blood Culture - Final Blood 06/17/22 17:40 Blood Culture Gram Stain - Preliminary Blood 06/17/22 17:40 Blood Culture - Final Blood 06/17/22 17:40 Anaerobic Culture - Preliminary Leg - Left 06/17/22 17:40 Wound Culture - Preliminary Leg - Left Assessment and Plan (1) Stasis dermatitis of left lower extremity with venous ulcer due to chronic peripheral venous hypertension Current Visit: No Status: Acute Code(s): I87.332 - CHRONIC VENOUS HTN W ULC ER AND INFLAMMATION OF L LOW EXTREM; L97.929 - NON-PRS CHRONIC ULC UNSP PRT OF L LOW LEG W UNSP SEVERITY SNOMED Code(s): 016304527074596 (2) Stasis dermatitis of right lower extremity with venous ulcer due to chronic peripheral venous hypertension Current Visit: No Status: Acute Code(s): I87.331 - CHRONIC VENOUS HTN W ULCER AND INFLAMMATION OF R LOW EXTREM; L97.919 - NON-PRS CHRONIC ULC UNSP PRT OF R LOW LEG W UNSP SEVERITY SNOMED Code(s): 588783356201275 (3) Type 2 diabetes mellitus with other skin ulcer Current Visit: Yes Status: Acute Code(s): E11.622 - TYPE 2 DIABETES MELLITUS WITH OTHER SKIN ULCER; L98.499 - NON-PRESSURE CHRONIC ULCER OF SKIN OF SITES W UNSP SEVERITY SNOMED Code(s): 908827408 (4) Type 2 diabetes mellitus with foot ulcer Current Visit: Yes Status: Acute Code(s): E11.621 - TYPE 2 DIABETES MELLITUS WITH FOOT ULCER; L97.509 - NON-PRESSURE CHRONIC ULCER OTH PRT UNSP FOOT W UNSP SEVERITY SNOMED Code(s): 511083746 (5) Non-pressure chronic ulcer of other part of left foot with fat layer exposed Current Visit: Yes Status: Acute Code(s): L97.522 - NON-PRS CHRONIC ULCER OTH PRT LEFT FOOT W FAT LAYER EXPOSED SNOMED Code(s): 09588312313910845 (6) Non-pressure chronic ulcer of other part of right foot with fat layer exposed Current Visit: Yes Status: Acute Code(s): L97.512 - NON-PRS CHRONIC ULCER OTH PRT RIGHT FOOT W FAT LAYER EXPOSED SNOMED Code(s): 61875164135340237
[2022-06-18 11:46] LABS: Glucose,Whole Blood 167 mg/dL (70-110)
[2022-06-18] MEDS ORDERED: NYSTATIN 100,000 UNIT/GM POWD 15 GM TOPICAL PRN (12:00)
[2022-06-18 12:18] LABS: Basophils # (A) 0.04 X 10*3/uL (0.00-0.10); Basophils % (A) 0.2 %; Eosinophils # (A) 0.67 X 10*3/uL (0.04-0.35); Eosinophils % (A) 3.6 %; Immature Grans, Automated 0.9 %; Lymphocytes # (A) 3.34 X 10*3/uL (0.90-5.00); Lymphocytes % (A) 17.9 %; Monocytes # (A) 0.99 X 10*3/uL (0.20-1.00); Monocytes % (A) 5.3 %; NRBC Per 100 WBC 0 /100 WBCS (0.0-0.0); Neutrophils # (A) 13.49 X 10*3/uL (1.80-7.70); Neutrophils % (A) 72.1 %
[2022-06-18 12:22] LABS: HGB 6.2 g/dL (13.0-17.0); MCH 23.2 pg (27.0-32.0); MCHC 28.2 g/dL (32.0-37.0); MCV 82.4 fL (80.0-97.0); Mean Platelet Volume 10.8 fL (9.5-12.2); Platelet Count 382 X 10*3/uL (140-440); RBC 2.67 X 10*6/uL (4.40-5.60); RDW 17.6 % (11.5-14.5); WBC 18.69 X 10*3/uL (4.50-10.00)
[2022-06-18 12:23] LABS: Hypochromasia (M) 2+
--- NOTE | 2022-06-18 13:29 | P.CNNES ---
History of Present Illness Consult date: 06/18/22 Requesting physician: Claudia Ragdsale Reason for Consult: hx of parkinson's disease and not taking medication for over a year History of Present Illness: This is a 56-year-old with C of stroke in 2013 and 2014 (stated had lacunar), multiple medical issues who presented emergency department because of weakness presyncope. It seems the patient has recurrent cellulitis. Neurology is consulted because of history of Parkinson's disease and the patient has not been on medications for at least more than a year according to primary team. According to patient he does not have a diagnosis of Parkinson disease. He stated that in 2013 and 2014 he had a lacunar stroke and as a result he had some tremors and that his neurologist saw him on Sinemet to help with the tremor but he stated that he was not given a diagnosis of Parkinson's disease. He stated that the medication was helping initially then that faded out. He did not require the medication since the tremor has improved by themselves. He feels the tremor happen when he is stressed out or anxious. He does not recall the name of the neurologist was follow-up with. He has not been on any medication for at least one year since he was going to financial difficulty. Per the stroke he is on aspirin and statin. He has a history of diabetes, hypertension, dyslipidemia. Some other workup during his hospital visit consisted of: Initial white blood cells 18.7 slightly neutrophilic. Hemoglobin most recent is 6.2. Hemoglobin A1c 6.8. TSH is 3.890 The BUN is 49.3 and creatinine is 1.38. Review of Systems Review of system: The 12 point system was reviewed and apparent positive and negative per HPI. Past Medical History Past Medical History: Blood Disorder, Coronary Artery Disease (CAD), Heart Failure, CVA/TIA, Diabetes Mellitus, Hyperlipidemia, Hypertension, Renal Disease, Sleep Apnea/CPAP/BIPAP Additional Past Medical History / Comment(s): Chronic back pain; USES C-PAP; kidney stones, RENAL FAILURE; NEUROPATHY. WEARS COPPER FITBOOTS D/T PVD. POSS CVA 10/2013, PVD History of Any Multi-Drug Resistant Organisms: MRSA, VRE Date of last positivie culture/infection: 05/09/19-MRSA; 07/05/08-VRE MDRO Source:: Right Leg-MRSA; VRE Leg wound Additional Past Surgical History / Comment(s): kidney stones removed, HX DRAINAGE TUBE, CYSTOSCOPY; DEBRIDMENTS TO LEGS X6 IN 2009 Past Anesthesia/Blood Transfusion Reactions: No Reported Reaction Past Psychological History: Anxiety, Depression Past Alcohol Use History: None Reported Past Drug Use History: None Reported - Past Family History Mother Family Medical History: Cancer Father Family Medical History: Hypertension Medications and Allergies Home Medications Medication Instructions Recorded Confirmed Type No Known Home Medications 06/17/22 06/17/22 History Allergies Allergy/AdvReac Type Severity Reaction Status Date / Time Penicillins Allergy Unknown Unknown Verified 06/09/18 08:22 Childhood adhesive Allergy Rash/Hives Verified 06/09/18 08:22 peanut AdvReac Nausea & Verified 06/09/18 08:22 Vomiting Physical Examination - Vital Signs Vital Signs: Vital Signs Temp Pulse Pulse Resp BP BP Pulse Ox 06/18/22 12:46 94 L 06/18/22 11:15 98.2 F 88 18 103/68 92 L 06/18/22 07:12 97.4 F L 85 18 124/65 94 L 06/18/22 01:25 98.3 F 88 18 146/64 95 06/17/22 21:53 97.7 F 82 18 117/62 94 L 06/17/22 20:00 83 20 140/65 06/17/22 19:30 92 15 124/59 06/17/22 19:00 87 18 113/50 06/17/22 18:30 89 17 122/62 06/17/22 18:00 101 H 21 131/60 06/17/22 17:35 103 H 18 131/60 96 06/17/22 17:30 100 15 95/52 06/17/22 17:17 20 06/17/22 17:12 98.8 F 96 22 95/52 96 Intake and Output 06/17/22 06/18/22 06/18/22 22:59 06:59 14:59 Intake Total 650 Balance 650 Intake: Intake, IV Titration 650 Amount Clindamycin 600 mg In 50 Dextrose 5% in Water 50 ml @ 50 mls/hr IVPB Q8HR [facility] Rx#:[id number] Magnesium Sulfate-D5w Pmx 100 1 gm In Dextrose/Water 1 100ml.bag @ 100 mls/hr IVPB ONCE ONE Rx#: [id number] Vancomycin 2,500 mg In 500 Sodium Chloride 0.9% 500 ml 500 ml @ 167 mls/hr IVPB Q16H [facility] Rx#: [id number] Other: Voiding Method Bedpan # Voids 2 Weight 185.973 kg GENERAL: The patient is a morbid obese gentleman lying in bed and is not in acute distress. CHEST: The heart rate is regular rate rhythm. No murmurs to auscultation. LUNG: Clear to auscultation bilaterally no wheezing noted throughout. Not labored breathing. ABDOMEN/GI: Bowel sounds present in all 4 quadrants. No tenderness to palpation throughout. NEUROLOGICAL: Higher mental function: The patient is awake, alert, oriented to self, place and time. Patient is following commands. No aphasia and no neglect. Cranial nerves: The pupils are round, equal and reactive to light. Visual ayala are full to confrontation throughout. Extraocular movement is intact no nystagmus is noted. Facial sensation is normal to touch throughout. The facial strength is normal throughout. Hearing is normal bilaterally to hand rub. Tong ue is midline and moved [id number] without any difficulty. No dysarthria is noted. Shoulder shrug is normal bilaterally. Motor: The strength is 5 over 5 throughout uppers while lowers are limited since are wrapped in gauge. Normal tone. No resting tremor. Cerebellum: Normal finger to nose bilaterally. Sensation: Sensation is normal to touch throughout. Reflexes (right/left): Uppers are 1+ while lowers unable to assess since wrapped in gauge. Results - Laboratory Findings CBC and BMP: 06/18/22 07:22 06/18/22 07:22 Abnormal Lab Findings: Abnormal Labs 06/17/22 06/17/22 06/17/22 17:40 17:40 17:40 WBC 18.7 H RBC 3.22 L Hgb 7.6 L Hct 25.9 L MCH 23.8 L MCHC 29.5 L RDW 17.3 H Immature Gran # Neutrophils # 14.7 H Eosinophils # APTT 21.1 L Potassium 5.6 H Carbon Dioxide 21 L Anion Gap BUN 52 H Creatinine 1.38 H Est GFR (CKD-EPI)NonAf BUN/Creatinine Ratio Glucose 183 H POC Glucose (mg/dL) Hemoglobin A1c Plasma Lactic Acid Cesario Calcium 8.2 L Albumin 3.0 L Urine Protein 06/17/22 06/17/22 06/17/22 17:40 21:20 22:54 WBC RBC Hgb Hct MCH MCHC RDW Immature Gran # Neutrophils # Eosinophils # APTT Potassium Carbon Dioxide Anion Gap BUN Creatinine Est GFR (CKD-EPI)NonAf BUN/Creatinine Ratio Glucose POC Glucose (mg/dL) Hemoglobin A1c 6.8 H Plasma Lactic Acid Cesario 3.5 H* Calcium Albumin Urine Protein Trace H 06/18/22 06/18/22 06/18/22 07:16 07:22 07:22 WBC 18.69 H RBC 2.67 L Hgb 6.2 L* Hct 22.0 L MCH 23.2 L MCHC 28.2 L RDW 17.6 H Immature Gran # 0.16 H Neutrophils # 13.49 H Eosinophils # 0.67 H APTT Potassium Carbon Dioxide Anion Gap BUN Creatinine 1.38 H Est GFR (CKD-EPI)NonAf BUN/Creatinine Ratio Glucose POC Glucose (mg/dL) 143 H Hemoglobin A1c Plasma Lactic Acid Cesario Calcium Albumin Urine Protein 06/18/22 06/18/22 07:22 11:19 WBC RBC Hgb Hct MCH MCHC RDW Immature Gran # Neutrophils # Eosinophils # APTT Potassium Carbon Dioxide Anion Gap 7.10 L BUN 49.3 H Creatinine Est GFR (CKD-EPI)NonAf 57.0 L BUN/Creatinine Ratio 36.25 H Glucose 124 H POC Glucose (mg/dL) 167 H Hemoglobin A1c Plasma Lactic Acid Cesario Calcium 8.2 L Albumin Urine Protein Assessment and Plan Assessment: This is a 56-year-old gentleman with history of lacunar stroke in the past and was notified that he had the tremors due to his stroke and eventually did not require any medication since resolved on their own. He does not have any diagnosis of Parkinson's disease Tremor: Seems due to anxiety and component in past due to stroke that has resolved without medication. On examination has no Parkinson's features. History of lacunar stroke (2013/2014). Recurrent cellulitis Anemia Diabetes mellitus Hypertension Hyperlipidemia Sleep apnea History of coronary artery disease Morbid obesity Medication noncompliance Plan: I ordered a CT of the head to assess strokes and cause of his tremor. Such as vascular component. I will not start him on any medication since no tremor seen and he does not have Parkinson's feature. Once any masses resolved recommend the patient to be on aspirin 81 and Lipitor 20 mg daily at bedtime for secondary stroke prophylaxis ID is on board for the cellulitis General surgery team is on board for the anemia and planning of scoping him according to nurse. We'll defer the rest of the medical management the primary team The plan was discussed with the patient and his nurse. Thank you for the consultation Time with Patient: Greater than 30
[2022-06-18 13:33] VITALS: BMI 58.8
[2022-06-18] MEDS: COLLAGENASE 250 UNIT/GM OINTMENT 30 GM TUBE TOPICAL SCH (13:34)
--- NOTE | 2022-06-18 14:05 | CT ---
EXAMINATION TYPE: CT brain wo con CT DLP: 1149.4 mGycm, Automated exposure control for dose reduction was used. DATE OF EXAM: 06/18/2022 1:51 PM COMPARISON: 10/06/2014 CLINICAL INDICATION:Male, 56 years old with history of tremor with hx of stroke, dizzy/tremors TECHNIQUE: Brain: Axial CT images of the brain were obtained with coronal and sagittal reformats created and rev iewed. Contrast used: None. Oral contrast used: None. FINDINGS: Brain: Extra-axial spaces: No abnormal extra-axial fluid collections. Ventricular system: Within normal limits Cerebral parenchyma: No acute intraparenchymal hemorrhage or mass effect. The duenas-white junction is well differentiated. Scattered hypoattenuating areas are seen within the white matter. Cerebellum: Unremarkable. Mass effect: No evidence of midline shift. Intracranial vasculature: Atherosclerotic calcifications of the intracranial vessels. Soft tissues: Normal. Calvarium/osseous structures: No depressed skull fracture. Paranasal sinuses and mastoid air cells: Mild scattered paranasal sinus disease. Visualized orbits: Orbital contents are intact. IMPRESSION: 1. No acute intracranial process. 2. Nonspecific white matter changes, likely secondary to chronic small vessel ischemic disease.
--- NOTE | 2022-06-18 14:14 | P.GSCN ---
History of Present Illness Consult date: 06/18/22 History of present illness: CHIEF COMPLAINT: Weakness Reason for consult: Anemia HISTORY OF PRESENT ILLNESS: This is a 56-year-old male who presented with weakness and concerns for his lower extremity wounds. He has chronic leg wounds and history of peripheral vascular disease. He is currently followed by wound care service and is on antibiotics. Patient denies any abdominal pain. He denies any blood in his stools or black stools. He denies any hematemesis. Linden dunn reports history of heart disease, chronic kidney disease and a past hospitalization of 30 days in the year 2009. Patient is unsure if he's had colonoscopy. Since hemoglobin is 6.2 and he is scheduled to receive a blood transfusion. Patient has been noncompliant with his care. He has not had any of his medications in over a year. PAST MEDICAL HISTORY: See list. PAST SURGICAL HISTORY: See list. MEDICATIONS: See list. ALLERGIES: See list. SOCIAL HISTORY: No illicit drug use. REVIEW OF SYSTEMS: CONSTITUTIONAL: Denies fever or chills. HEENT: Denies blurred vision, vision changes, or eye pain. Denies hemoptysis ENDOCRINE: Denies heat or cold intolerance. CARDIOVASCULAR: Denies chest pain or pressure. RESPIRATORY: No shortness of breath. GASTROINTESTINAL: Denies abdominal pain. Denies nausea or vomiting. NEURO: Denies history of seizures. PSYCH: No depression or suicidal ideation HEMATOLOGIC: Denies bleeding disorders. LYMPHATIC: The patient denies any lumps and bumps around the neck. GENITOURINARY: Denies any blood in urine or increased urinary frequency. MUSCULOSKELETAL: Denies myalgias. Denies joint swelling. Denies decreased range of motion beyond patients baseline. SKIN: Denies pruitis. Denies rash. PHYSICAL EXAM: VITAL SIGNS: Reviewed GENERAL: Well-developed in no acute distress. HEENT: No sclera icterus. Extraocular movements grossly intact. Moist buccal mucosa. Head is atraumatic, normocephalic. Hears conversational speech. No nasal drai nage. NECK: Supple without lymphadenopathy. CHEST: Non-labored respirations and equal bilateral excursions. CARDIOVASCULAR: Palpable 2+ radial pulses. ABDOMEN: Soft. Nondistended. Nontender MUSCULOSKELETAL: No clubbing or cyanosis. NEUROLOGIC: No focal or lateralizing signs. Cranial nerves II through XII grossly intact. PSYCH: Appropriate affect. Alert and oriented to person, place and time. SKIN: Well perfused. Good skin turgor. Extremities: Chronic leg wounds noted bilaterally. Visible veins noted LABORATORY DATA: WBC 18.69 Hgb 7.6 down to 6.2 platelets 382 Sodium is 142 potassium 4.9 creatinine 1.4 Lactic acid 3.5 down to 1 LFTs normal TSH 3.890 Urinalysis negative for infection IMAGING: ASSESSMENT: 1. Microcytic Anemia 2. Bilateral lower extremity cellulitis and chronic wounds 3. Medication noncompliance 4. History of CVA 5. Morbid obesity 6. Hypertension 7. Diabetes mellitus 8. Peripheral vascular disease 9. Acute kidney injury PLAN: -Patient scheduled for EGD and colonoscopy on 06/21/[address] Godoy -Agree with blood transfusion -Continue to monitor hemoglobin -Continue to monitor for any signs or symptoms of bleeding -Agree with checking stool for occult blood Thank you for this consultation Physician Supervisor Personnel Clerks note has been reviewed by physician. Signing provider agrees with the documented findings, assessment, and plan of care. REASON FOR CONSULTATION: Anemia HISTORY OF PRESENT ILLNESS: The patient is a 56 year old male who presented to the hospital with syncope and weakness. He has pre-existing history of kidney disease, venous stasis disease, stroke, and morbid obesity. Patient has severe bilateral lower extremity venous stasis disease with infection of the legs. Patient has been lost to follow-up. Hemoglobin on admission was 6.2. WBC on elevation over 18,000. He denies hematemesis or active blood in stools. Genital surgery is consulted for anemia. PAST MEDICAL HISTORY: See list and reviewed PAST SURGICAL HISTORY: See list and reviewed MEDICATIONS: See list and reviewed ALLERGIES: See list and reviewed SOCIAL HISTORY: See list and reviewed FAMILY HISTORY: See list and reviewed REVIEW OF ORGAN SYSTEMS: CONSTITUTIONAL: No fevers or chills. No recent weight loss. Morbid obesity, BMI 58 point EYES: Denies any trouble with vision. No glasses. HEENT: No difficulties with hearing. No nosebleeds. No difficulty swallowing. RESPIRATORY: He has obstructive sleep apnea. CARDIOVASCULAR: Has coronary artery disease. Has congestive heart failure. Has venous stasis disease. GASTROINTESTINAL: Denies fatty food intolerance. Denies change in bowel habits and gas bloat. GENITOURINARY: Has renal failure. NEUROLOGICAL: Has neuropathy. History of stroke. MUSCULOSKELETAL: Has back pain, stiffness or joint arthritis. SKIN: No current skin cancer. No rash. PSYCHIATRIC: Has anxiety and depression. ENDOCRINE: Denies current thyroid disorders. He has diabetes type 2. HEME/LYMPHATIC: Denies any lumps and bumps around the neck. No recent deep venous thrombosis. History of MRSA. ALLERGY/IMMUNOLOGY: No immunoglobulin therapy. No immune deficiencies. BREAST: Denies current breast lumps, pain or nipple discharge. PHYSICAL EXAM: VITALS: Reviewed CONSTITUTIONAL: Well developed and in no acute distress. EYES: Conjuctivae without sclera icterus. Extraocular movements grossly intact. HEAD, EARS, NOSE, THROAT: Moist buccal mucosa. Head is atraumatic, n ormocephalic. Hears conversational speech. No nasal drainage. NECK: Supple. No JV distention. No thyroidomegaly. RESPIRATORY: Non-labored respirations and equal bilateral excursions. No gross wheezes. CARDIOVASCULAR: Palpable 2+ radial pulses. ABDOMEN: Obese. No peritonitis LYMPH: No neck lymphadenopathy. MUSCULOSKELETAL: Bilateral lower extremity venous stasis disease. Dilated veins along the knees. SKIN: Warm and well perfused with good skin turgor. NEUROLOGIC: Cranial nerves II through XII grossly intact. No focal or lateralizing signs. PSYCH: Appropriate affect. Alert and oriented to person, place and time. Displays appropriate insight. CLINCAL LABS: Reviewed. WBC over 18,000. Hemoglobin 6.2, anemia. Creatinine 1.4 ASSESSMENT: 1. Anemia 2. Bilateral venous stasis disease 3. Morbid obesity due to excess calories, BMI 58.8 4. Chronic venous stasis disease 5. Leukocytosis 6. Chronic renal disease PLAN: 1. Recommend upper and lower endoscopy for anemia management pending clearance from medicine 2. May have diet as tolerated 3. He is elevated risk for co-morbidities Thank you for this kind consultation. Past Medical History Past Medical History: Blood Disorder, Coronary Artery Disease (CAD), Heart Fa ilure, CVA/TIA, Diabetes Mellitus, Hyperlipidemia, Hypertension, Renal Disease, Sleep Apnea/CPAP/BIPAP Additional Past Medical History / Comment(s): Chronic back pain; USES C-PAP; kidney stones, RENAL FAILURE; NEUROPATHY. WEARS COPPER FITBOOTS D/T PVD. 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-MRSA; 5/1/09-VRE MDRO Source:: Right Leg-MRSA; VRE Leg wound Additional Past Surgical History / Comment(s): kidney stones removed, HX DRAINAGE TUBE, CYSTOSCOPY; DEBRIDMENTS TO LEGS X6 IN 2008 Past Anesthesia/Blood Transfusion Reactions: No Reported Reaction Past Psychological History: Anxiety, Depression Past Alcohol Use History: None Reported Past Drug Use History: None Reported - Past Family History Mother Family Medical History: Cancer Father Family Medical History: Hypertension Medications and Allergies Home Medications Medication Instructions Recorded Confirmed Type No Known Home Medications 06/17/22 06/17/22 History Allergies Allergy/AdvReac Type Severity Reaction Status Date / Time Penicillins Allergy Unknown Unknown Verified 06/09/18 08:22 Childhood adhesive Allergy Rash/Hives Verified 06/09/18 08:22 peanut AdvReac Nausea & Verified 06/09/18 08:22 Vomiting Surgical - Exam Vital Signs Temp Pulse Resp BP Pulse Ox 98.8 F 96 22 95/52 96 06/17/22 17:12 06/17/22 17:12 06/17/22 17:12 06/17/22 17:12 06/17/22 17:12 Results - Labs 06/18/22 07:22 06/18/22 07:22 Abnormal Lab Results - Last 24 Hours (Table) 06/17/22 06/17/22 06/17/22 Range/Units 17:40 17:40 17:40 WBC 18.7 H (3.8-10.6) k/uL RBC 3.22 L (4.30-5.90) m/uL Hgb 7.6 L (13.0-17.5) gm/dL Hct 25.9 L (39.0-53.0) % MCH 23.8 L (25.0-35.0) pg MCHC 29.5 L (31.0-37.0) g/dL RDW 17.3 H (11.5-15.5) % Immature Gran # (0.00-0.04) X 10*3/uL Neutrophils # 14.7 H (1.3-7.7) k/uL Eosinophils # (0.04-0.35) X 10*3/uL APTT 21.1 L (22.0-30.0) sec Potassium 5.6 H (3.5-5.1) mmol/L Carbon Dioxide 21 L (22-30) mmol/L Anion Gap (10.00-18.00) mmol/L BUN 52 H (9-20) mg/dL Creatinine 1.38 H (0.66-1.25) mg/dL Est GFR (CKD-EPI)NonAf (60.0-200.0) BUN/Creatinine Ratio (12.00-20.00) Ratio Glucose 183 H (74-99) mg/dL POC Glucose (mg/dL) (70-110) mg/dL Hemoglobin A1c (0.0-6.0) % Plasma Lactic Acid Cesario (0.7-2.0) mmol/L Calcium 8.2 L (8.4-10.2) mg/dL Albumin 3.0 L (3.5-5.0) g/dL Urine Protein (Negative) 06/17/22 06/17/22 06/17/22 Range/Units 17:40 21:20 22:54 WBC (3.8-10.6) k/uL RBC (4.30-5.90) m/uL Hgb (13.0-17.5) gm/dL Hct (39.0-53.0) % MCH (25.0-35.0) pg MCHC (31.0-37.0) g/dL RDW (11.5-15.5) % Immature Gran # (0.00-0.04) X 10*3/uL Neutrophils # (1.3-7.7) k/uL Eosinophils # (0.04-0.35) X 10*3/uL APTT (22.0-30.0) sec Potassium (3.5-5.1) mmol/L Carbon Dioxide (22-30) mmol/L Anion Gap (10.00-18.00) mmol/L BUN (9-20) mg/dL Creatinine (0.66-1.25) mg/dL Est GFR (CKD-EPI)NonAf (60.0-200.0) BUN/Creatinine Ratio (12.00-20.00) Ratio Glucose (74-99) mg/dL POC Glucose (mg/dL) (70-110) mg/dL Hemoglobin A1c 6.8 H (0.0-6.0) % Plasma Lactic Acid Cesario 3.5 H* (0.7-2.0) mmol/L Calcium (8.4-10.2) mg/dL Albumin (3.5-5.0) g/dL Urine Protein Trace H (Negative) 06/18/22 06/18/22 06/18/22 Range/Units 07:16 07:22 07:22 WBC 18.69 H (3.8-10.6) k/uL RBC 2.67 L (4.30-5.90) m/uL Hgb 6.2 L* (13.0-17.5) gm/dL Hct 22.0 L (39.0-53.0) % MCH 23.2 L (25.0-35.0) pg MCHC 28.2 L (31.0-37.0) g/dL RDW 17.6 H (11.5-15.5) % Immature Gran # 0.16 H (0.00-0.04) X 10*3/uL Neutrophils # 13.49 H (1.3-7.7) k/uL Eosinophils # 0.67 H (0.04-0.35) X 10*3/uL APTT (22.0-30.0) sec Potassium (3.5-5.1) mmol/L Carbon Dioxide (22-30) mmol/L Anion Gap (10.00-18.00) mmol/L BUN (9-20) mg/dL Creatinine 1.38 H (0.66-1.25) mg/dL Est GFR (CKD-EPI)NonAf (60.0-200.0) BUN/Creatinine Ratio (12.00-20.00) Ratio Glucose (74-99) mg/dL POC Glucose (mg/dL) 143 H (70-110) mg/dL Hemoglobin A1c (0.0-6.0) % Plasma Lactic Acid Cesario (0.7-2.0) mmol/L Calcium (8.4-10.2) mg/dL Albumin (3.5-5.0) g/dL Urine Protein (Negative) 06/18/22 06/18/22 Range/Units 07:22 11:19 WBC (3.8-10.6) k/uL RBC (4.30-5.90) m/uL Hgb (13.0-17.5) gm/dL Hct (39.0-53.0) % MCH (25.0-35.0) pg MCHC (31.0-37.0) g/dL RDW (11.5-15.5) % Immature Gran # (0.00-0.04) X 10*3/uL Neutrophils # (1.3-7.7) k/uL Eosinophils # (0.04-0.35) X 10*3/uL APTT (22.0-30.0) sec Potassium (3.5-5.1) mmol/L Carbon Dioxide (22-30) mmol/L Anion Gap 7.10 L (10.00-18.00) mmol/L BUN 49.3 H (9-20) mg/dL Creatinine (0.66-1.25) mg/dL Est GFR (CKD-EPI)NonAf 57.0 L (60.0-200.0) BUN/Creatinine Ratio 36.25 H (12.00-20.00) Ratio Glucose 124 H (74-99) mg/dL POC Glucose (mg/dL) 167 H (70-110) mg/dL Hemoglobin A1c (0.0-6.0) % Plasma Lactic Acid Cesario (0.7-2.0) mmol/L Calcium 8.2 L (8.4-10.2) mg/dL Albumin (3.5-5.0) g/dL Urine Protein (Negative) Microbiology - Last 24 Hours (Table) 06/17/22 17:40 Blood Culture Gram Stain - Preliminary Blood 06/17/22 17:40 Blood Culture - Final Blood 06/17/22 17:40 Blood Culture Gram Stain - Preliminary Blood 06/17/22 17:40 Blood Culture - Final Blood 06/17/22 17:40 Anaerobic Culture - Preliminary Leg - Left 06/17/22 17:40 Wound Culture - Preliminary Leg - Left Diabetes panel 06/17/22 06/17/22 06/18/22 Range/Units 17:40 22:54 07:22 Sodium 139 (137-145) mmol/L Potassium 5.6 H (3.5-5.1) mmol/L Chloride 106 (98-107) mmol/L Carbon Dioxide 21 L (22-30) mmol/L BUN 52 H (9-20) mg/dL Creatinine 1.38 H 1.38 H (0.66-1.25) mg/dL Glucose 183 H (74-99) mg/dL Hemoglobin A1c 6.8 H (0.0-6.0) % Calcium 8.2 L (8.4-10.2) mg/dL AST 21 (17-59) U/L ALT 20 (4-49) U/L Alkaline Phosphatase 112 (38-126) U/L Total Protein 7.0 (6.3-8.2) g/dL Albumin 3.0 L (3.5-5.0) g/dL 06/18/22 Range/Units 07:22 Sodium 142 (137-145) mmol/L Potassium 4.9 (3.5-5.1) mmol/L Chloride 108 (98-107) mmol/L Carbon Dioxide 27.0 (22-30) mmol/L BUN 49.3 H (9-20) mg/dL Creatinine 1.4 (0.66-1.25) mg/dL Glucose 124 H (74-99) mg/dL Hemoglobin A1c (0.0-6.0) % Calcium 8.2 L (8.4-10.2) mg/dL AST (17-59) U/L ALT (4-49) U/L Alkaline Phosphatase (38-126) U/L Total Protein (6.3-8.2) g/dL Albumin (3.5-5.0) g/dL Thyroid panel 06/17/22 Range/Units 17:40 TSH 3.890 (0.465-4.680) mIU/L Calcium panel 06/17/22 06/18/22 Range/Units 17:40 07:22 Calcium 8.2 L 8.2 L (8.4-10.2) mg/dL Albumin 3.0 L (3.5-5.0) g/dL Pituitary panel 06/17/22 06/18/22 06/18/22 Range/Units 17:40 07:22 07:22 Sodium 139 142 (137-145) mmol/L Potassium 5.6 H 4.9 (3.5-5.1) mmol/L Chloride 106 108 (98-107) mmol/L Carbon Dioxide 21 L 27.0 (22-30) mmol/L BUN 52 H 49.3 H (9-20) mg/dL Creatinine 1.38 H 1.38 H 1.4 (0.66-1.25) mg/dL Glucose 183 H 124 H (74-99) mg/dL Calcium 8.2 L 8.2 L (8.4-10.2) mg/dL TSH 3.890 (0.465-4.680) mIU/L Adrenal panel 06/17/22 06/18/22 06/18/22 Range/Units 17:40 07:22 07:22 Sodium 139 142 (137-145) mmol/L Potassium 5.6 H 4.9 (3.5-5.1) mmol/L Chloride 106 108 (98-107) mmol/L Carbon Dioxide 21 L 27.0 (22-30) mmol/L BUN 52 H 49.3 H (9-20) mg/dL Creatinine 1.38 H 1.38 H 1.4 (0.66-1.25) mg/dL Glucose 183 H 124 H (74-99) mg/dL Calcium 8.2 L 8.2 L (8.4-10.2) mg/dL Total Bilirubin 0.3 (0.2-1.3) mg/dL AST 21 (17-59) U/L ALT 20 (4-49) U/L Alkaline Phosphatase 112 (38-126) U/L Total Protein 7.0 (6.3-8.2) g/dL Albumin 3.0 L (3.5-5.0) g/dL
[2022-06-18] MEDS: ACETAMINOPHEN TAB 325 MG TAB PO PRN ×2 (15:05→21:27)
[2022-06-18 16:03] LABS: % Iron Saturation 9.46 (15.00-50.00)
[2022-06-18 17:00] LABS: Glucose,Whole Blood 154 mg/dL (70-110)
--- NOTE | 2022-06-18 21:03 | P.CONS ---
History of Present Illness - Reason for Consult Consult date: 06/18/22 - History of Present Illness Patient is a 56-year male with a past medical history significant for CVA TIA coronary disease heart failure patient did have a history of bilateral lower extremity venous stasis ulcer bilateral lower extremity patient apparently noticed to having increasing lower extremity swelling and also has developed a ulceration on the dorsum aspect of both feet and some drainage patient mention has been taking care of his lower extremity at home by triple layer dressing however over the last few days the patient seem to have increasing pain and weakness and apparently the patient did have a syncopal episode and the patient was subsequently brought into the hospital patient complaining of significant pain to bilateral lower extremity describing to be sharp almost 7-8 out of 10 no radiation with associated swelling redness and pain and did have some drainage from his foot wound on admission to the hospital the patient was afebrile no fever has been recorded subsequently patient did have white count of 18.7 with a left shift did have a elevated BUN and creatinine lactic acid was 3.5 liver exams are normal urine has been negative patient did have a blood culture growing gram-positive cocci he was on Unasyn vancomycin was added infectious disease consulted for further management of antibiotic therapy chest x-ray was negative for a definite acute radiographic process Past Medical History Past Medical History: Blood Disorder, Coronary Artery Disease (CAD), Heart Failure, CVA/TIA, Diabetes Mellitus, Hyperlipidemia, Hypertension, Renal D isease, Sleep Apnea/CPAP/BIPAP Additional Past Medical History / Comment(s): Chronic back pain; USES C-PAP; kidney stones, RENAL FAILURE; NEUROPATHY. WEARS COPPER FITBOOTS D/T PVD. 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 MDRO Source:: Right Leg-MRSA; VRE Leg wound Additional Past Surgical History / Comment(s): kidney stones removed, HX DRAINAGE TUBE, CYSTOSCOPY; DEBRIDMENTS TO LEGS X6 IN 2008 Past Anesthesia/Blood Transfusion Reactions: No Reported Reaction Past Psychological History: Anxiety, Depression Past Alcohol Use History: None Reported Past Drug Use History: None Reported - Past Family History Mother Family Medical History: Cancer Father Family Medical History: Hypertension Medications and Allergies Home Medications Medication Instructions Recorded Confirmed Type No Known Home Medications 06/17/22 06/17/22 History Allergies Allergy/AdvReac Type Severity Reaction Status Date / Time Penicillins Allergy Unknown Unknown Verified 06/09/18 08:22 Childhood adhesive Allergy Rash/Hives Verified 06/09/18 08:22 peanut AdvReac Nausea & Verified 06/09/18 08:22 Vomiting Physical Exam Vitals: Vital Signs Temp Pulse Pulse Resp BP BP Pulse Ox 06/18/22 07:12 97.4 F L 85 18 124/65 94 L 06/18/22 01:25 98.3 F 88 18 146/64 95 06/17/22 21:53 97.7 F 82 18 117/62 94 L 06/17/22 20:00 83 20 140/65 06/17/22 19:30 92 15 124/59 06/17/22 19:00 87 18 113/50 06/17/22 18:30 89 17 122/62 06/17/22 18:00 101 H 21 131/60 06/17/22 17:35 103 H 18 131/60 96 06/17/22 17:30 100 15 95/52 06/17/22 17:17 20 06/17/22 17:12 98.8 F 96 22 95/52 96 Intake and Output 06/17/22 06/18/22 06/18/22 22:59 06:59 14:59 Intake Total 650 Balance 650 Intake: Intake, IV Titration 650 Amount Clindamycin 600 mg In 50 Dextrose 5% in Water 50 ml @ 50 mls/hr IVPB Q8HR [facility] Rx#:[id number] Magnesium Sulfate-D5w Pmx 100 1 gm In Dextrose/Water 1 100ml.bag @ 100 mls/hr IVPB ONCE ONE Rx#: [id number] Vancomycin 2,500 mg In 500 Sodium Chloride 0.9% 500 ml 500 ml @ 167 mls/hr IVPB Q16H [facility] Rx#: [id number] Other: Voiding Method Bedpan # Voids 2 Weight 185.973 kg Results CBC & Chem 7: 06/18/22 07:22 06/18/22 07:22 Labs: Abnormal Lab Results - Last 24 Hours (Table) 06/17/22 06/17/22 06/17/22 Range/Units 17:40 17:40 17:40 WBC 18.7 H (3.8-10.6) k/uL RBC 3.22 L (4.30-5.90) m/uL Hgb 7.6 L (13.0-17.5) gm/dL Hct 25.9 L (39.0-53.0) % MCH 23.8 L (25.0-35.0) pg MCHC 29.5 L (31.0-37.0) g/dL RDW 17.3 H (11.5-15.5) % Neutrophils # 14.7 H (1.3-7.7) k/uL APTT 21.1 L (22.0-30.0) sec Potassium 5.6 H (3.5-5.1) mmol/L Carbon Dioxide 21 L (22-30) mmol/L Anion Gap (10.00-18.00) mmol/L BUN 52 H (9-20) mg/dL Creatinine 1.38 H (0.66-1.25) mg/dL Est GFR (CKD-EPI)NonAf (60.0-200.0) BUN/Creatinine Ratio (12.00-20.00) Ratio Glucose 183 H (74-99) mg/dL POC Glucose (mg/dL) (70-110) mg/dL Hemoglobin A1c (0.0-6.0) % Plasma Lactic Acid Cesario (0.7-2.0) mmol/L Calcium 8.2 L (8.4-10.2) mg/dL Albumin 3.0 L (3.5-5.0) g/dL Urine Protein (Negative) 06/17/22 06/17/22 06/17/22 Range/Units 17:40 21:20 22:54 WBC (3.8-10.6) k/uL RBC (4.30-5.90) m/uL Hgb (13.0-17.5) gm/dL Hct (39.0-53.0) % MCH (25.0-35.0) pg MCHC (31.0-37.0) g/dL RDW (11.5-15.5) % Neutrophils # (1.3-7.7) k/uL APTT (22.0-30.0) sec Potassium (3.5-5.1) mmol/L Carbon Dioxide (22-30) mmol/L Anion Gap (10.00-18.00) mmol/L BUN (9-20) mg/dL Creatinine (0.66-1.25) mg/dL Est GFR (CKD-EPI)NonAf (60.0-200.0) BUN/Creatinine Ratio (12.00-20.00) Ratio Glucose (74-99) mg/dL POC Glucose (mg/dL) (70-110) mg/dL Hemoglobin A1c 6.8 H (0.0-6.0) % Plasma Lactic Acid Cesario 3.5 H* (0.7-2.0) mmol/L Calcium (8.4-10.2) mg/dL Albumin (3.5-5.0) g/dL Urine Protein Trace H (Negative) 06/18/22 06/18/22 06/18/22 Range/Units 07:16 07:22 07:22 WBC (3.8-10.6) k/uL RBC (4.30-5.90) m/uL Hgb (13.0-17.5) gm/dL Hct (39.0-53.0) % MCH (25.0-35.0) pg MCHC (31.0-37.0) g/dL RDW (11.5-15.5) % Neutrophils # (1.3-7.7) k/uL APTT (22.0-30.0) sec Potassium (3.5-5.1) mmol/L Carbon Dioxide (22-30) mmol/L Anion Gap 7.10 L (10.00-18.00) mmol/L BUN 49.3 H (9-20) mg/dL Creatinine 1.38 H (0.66-1.25) mg/dL Est GFR (CKD-EPI)NonAf 57.0 L (60.0-200.0) BUN/Creatinine Ratio 36.25 H (12.00-20.00) Ratio Glucose 124 H (74-99) mg/dL POC Glucose (mg/dL) 143 H (70-110) mg/dL Hemoglobin A1c (0.0-6.0) % Plasma Lactic Acid Cesario (0.7-2.0) mmol/L Calcium 8.2 L (8.4-10.2) mg/dL Albumin (3.5-5.0) g/dL Urine Protein (Negative) Microbiology - Last 24 Hours (Table) 06/17/22 17:40 Blood Culture Gram Stain - Preliminary Blood 06/17/22 17:40 Blood Culture - Final Blood 06/17/22 17:40 Blood Culture Gram Stain - Preliminary Blood 06/17/22 17:40 Blood Culture - Final Blood 06/17/22 17:40 Anaerobic Culture - Preliminary Leg - Left 06/17/22 17:40 Wound Culture - Preliminary Leg - Left Assessment and Plan Plan: 1patient with bilateral lower extremity venous stasis ulcer and a component of cellulitis likely from gram-positive skin ani such as strep or Staph aureus 2-patient with gram-positive bacteremia likely related to bilateral extremity wound and cellulitis awaiting ID 3-patient to continue with the vancomycin while waiting for the culture to finalize while monitoring his kidney function closely 4-wound care per wound care team which has already been consulted and seen the patient We will follow on clinical condition and cultures to further adjust medication if needed Thank you for this consultation we will follow the patient along with you Time with Patient: Greater than 30
[2022-06-18 21:24] LABS: Glucose,Whole Blood 160 mg/dL (70-110)
[2022-06-19] MEDS: VANCOMYCIN 2,500 MG in SODIUM CHLORIDE 0.9% 500 ML 500 ML IVPB SCH ×2 (02:20→20:15)
[2022-06-19 07:43] LABS: Glucose,Whole Blood 194 mg/dL (70-110)
[2022-06-19] MEDS: CLINDAMYCIN 600 MG in DEXTROSE 5% IN WATER 50 ML IVPB SCH ×2 (08:19)
[2022-06-19] MEDS: INSULIN ASPART (NovoLOG) 100 UNIT/ML VIAL SQ SCH ×4 (08:19→20:15)
[2022-06-19] MEDS: COLLAGENASE 250 UNIT/GM OINTMENT 30 GM TUBE TOPICAL SCH (08:21)
[2022-06-19 09:19] LABS: Anisocytosis Slight; Hypochromasia Marked; MCH 24.9 pg (25.0-35.0); MCHC 30.4 g/dL (31.0-37.0); Mean Platelet Volume 7.8; Microcytosis Slight; Platelet Count 340 k/uL (150-450); Poikilocytosis Slight; RBC 2.34 m/uL (4.30-5.90); RDW 18.2 % (11.5-15.5); WBC 13.5 k/uL (3.8-10.6)
[2022-06-19 09:22] LABS: HGB 5.8 gm/dL (13.0-17.5)
[2022-06-19 09:23] LABS: HCT 19.2 % (39.0-53.0)
[2022-06-19 11:16] LABS: Glucose,Whole Blood 198 mg/dL (70-110)
--- NOTE | 2022-06-19 11:16 | P.PN ---
Subjective Progress Note Date: 06/19/22 CHIEF COMPLAINT: Anemia HISTORY OF PRESENT ILLNESS: The patient is a 56 year old male admitted to the hospital due to weakness. Yesterday, patient developed multiple dark bowel movements. He was even one unit of blood. Hemoglobin dropped from 6.2-5.8. He is currently on his second transfusion. No hematemesis. REVIEW OF ORGAN SYSTEMS: CONSTITUTIONAL: No fevers or chills. No recent weight loss. Morbid obesity, BMI 58.8 RESPIRATORY: He has obstructive sleep apnea. CARDIOVASCULAR: Has coronary artery disease. Has congestive heart failure. Has venous stasis disease. GASTROINTESTINAL: Has dark stools. Has diarrhea. SKIN: Has severe bilateral venous stasis disease of the lower extremities. PHYSICAL EXAM: VITALS: Reviewed CONSTITUTIONAL: Well developed and in no acute distress. EYES: Conjuctivae without sclera icterus. Extraocular movements grossly intact. HEAD, EARS, NOSE, THROAT: Moist buccal mucosa. Head is atraumatic, normocephalic. Hears conversational speech. No nasal drainage. RESPIRATORY: Non-labored respirations and equal bilateral excursions. No gross wheezes. CARDIOVASCULAR: Palpable 2+ radial pulses. ABDOMEN: Obese. No peritonitis MUSCULOSKELETAL: Bilateral foot dressings present SKIN: Warm and well perfused with good skin turgor. NEUROLOGIC: Cranial nerves II through XII grossly intact. No focal or lateralizing signs. PSYCH: Appropriate affect. Alert and oriented to person, place and time. Displays appropriate insight. CLINCAL LABS: Reviewed. WBC over 18,000, now over 13,000. Hemoglobin 6.2, anemia, now 5.8 ASSESSMENT: 1. Anemia 2. Bilateral venous stasis disease 3. Morbid obesity due to excess calories, BMI 58.8 4. Chronic venous stasis disease 5. Leukocytosis 6. Chronic renal disease 7. GI bleed with melena PLAN: 1. Recommend CT of the abdomen and pelvis due to new acute diarrhea, blood in stools and anemia for diverticulosis versus diverticulitis 2. Blood transfusion for acute blood loss anemia 3. Colonoscopy pending overall medical stability 4. Recommend EGD for anemia work Objective - Vital Signs Vital signs: Vital Signs Temp 98.3 F 06/19/22 10:39 Pulse 84 06/19/22 10:39 Resp 16 06/19/22 10:39 BP 121/62 04/15/23 10:39 Pulse Ox 97 06/19/22 10:39 FiO2 Intake & Output 06/18/22 06/19/22 06/19/22 18:59 06:59 18:59 Intake Total 670 0 Output Total 600 450 Balance 70 -450 0 Weight 185.973 kg Intake: Oral 360 Blood Product 310 0 Unit 0 Rc As-1 Unit 310 [id number] Output: Urine 600 450 Other: Voiding Method Bedpan Bedpan Bedpan Urinal Urinal # Bowel Movements 2 1 - Labs CBC & Chem 7: 06/19/22 08:35 06/19/22 08:35 Labs: Abnormal Lab Results - Last 24 Hours (Table) 06/18/22 06/18/22 06/18/22 Range/Units 07:22 07:22 07:22 WBC 18.69 H (4.50-10.00) X 10*3/uL RBC 2.67 L (4.40-5.60) X 10*6/uL Hgb 6.2 L* (13.0-17.0) g/dL Hct 22.0 L (39.6-50.0) % MCH 23.2 L (27.0-32.0) pg MCHC 28.2 L (32.0-37.0) g/dL RDW 17.6 H (11.5-14.5) % Immature Gran # 0.16 H (0.00-0.04) X 10*3/uL Neutrophils # 13.49 H (1.80-7.70) X 10*3/uL Eosinophils # 0.67 H (0.04-0.35) X 10*3/uL Anion Gap 7.10 L (10.00-18.00) mmol/L BUN 49.3 H (9.0-27.0) mg/dL Creatinine (0.66-1.25) mg/dL Est GFR (CKD-EPI)NonAf 57.0 L (60.0-200.0) BUN/Creatinine Ratio 36.25 H (12.00-20.00) Ratio Glucose 124 H (70-110) mg/dL POC Glucose (mg/dL) (70-110) mg/dL Calcium 8.2 L (8.7-10.3) mg/dL Iron 29 L (65-175) ug/dL % Saturation 9.46 L (15.00-50.00) Crossmatch 06/18/22 06/18/22 06/18/22 Range/Units 11:19 13:26 16:56 WBC (4.50-10.00) X 10*3/uL RBC (4.40-5.60) X 10*6/uL Hgb (13.0-17.0) g/dL Hct (39.6-50.0) % MCH (27.0-32.0) pg MCHC (32.0-37.0) g/dL RDW (11.5-14.5) % Immature Gran # (0.00-0.04) X 10*3/uL Neutrophils # (1.80-7.70) X 10*3/uL Eosinophils # (0.04-0.35) X 10*3/uL Anion Gap (10.00-18.00) mmol/L BUN (9.0-27.0) mg/dL Creatinine (0.66-1.25) mg/dL Est GFR (CKD-EPI)NonAf (60.0-200.0) BUN/Creatinine Ratio (12.00-20.00) Ratio Glucose (70-110) mg/dL POC Glucose (mg/dL) 167 H 154 H (70-110) mg/dL Calcium (8.7-10.3) mg/dL Iron (65-175) ug/dL % Saturation (15.00-50.00) Crossmatch See Detail 06/18/22 06/19/22 06/19/22 Range/Units 21:21 07:41 08:35 WBC 13.5 H (4.50-10.00) X 10*3/uL RBC 2.34 L (4.40-5.60) X 10*6/uL Hgb 5.8 L* D (13.0-17.0) g/dL Hct 19.2 L* (39.6-50.0) % MCH 24.9 L (27.0-32.0) pg MCHC 30.4 L (32.0-37.0) g/dL RDW 18.2 H (11.5-14.5) % Immature Gran # (0.00-0.04) X 10*3/uL Neutrophils # (1.80-7.70) X 10*3/uL Eosinophils # (0.04-0.35) X 10*3/uL Anion Gap (10.00-18.00) mmol/L BUN (9.0-27.0) mg/dL Creatinine (0.66-1.25) mg/dL Est GFR (CKD-EPI)NonAf (60.0-200.0) BUN/Creatinine Ratio (12.00-20.00) Ratio Glucose (70-110) mg/dL POC Glucose (mg/dL) 160 H 194 H (70-110) mg/dL Calcium (8.7-10.3) mg/dL Iron (65-175) ug/dL % Saturation (15.00-50.00) Crossmatch 06/19/22 Range/Units 08:35 WBC (4.50-10.00) X 10*3/uL RBC (4.40-5.60) X 10*6/uL Hgb (13.0-17.0) g/dL Hct (39.6-50.0) % MCH (27.0-32.0) pg MCHC (32.0-37.0) g/dL RDW (11.5-14.5) % Immature Gran # (0.00-0.04) X 10*3/uL Neutrophils # (1.80-7.70) X 10*3/uL Eosinophils # (0.04-0.35) X 10*3/uL Anion Gap (10.00-18.00) mmol/L BUN (9.0-27.0) mg/dL Creatinine 1.33 H (0.66-1.25) mg/dL Est GFR (CKD-EPI)NonAf (60.0-200.0) BUN/Creatinine Ratio (12.00-20.00) Ratio Glucose (70-110) mg/dL POC Glucose (mg/dL) (70-110) mg/dL Calcium (8.7-10.3) mg/dL Iron (65-175) ug/dL % Saturation (15.00-50.00) Crossmatch Microbiology - Last 24 Hours (Table) 06/17/22 17:40 Gram Stain - Preliminary Leg - Left Wound Culture - Preliminary Gram Neg Bacilli 06/17/22 17:40 Blood Culture Gram Stain - Preliminary Blood 06/17/22 17:40 Blood Culture Gram Stain - Preliminary Blood Blood Culture - Preliminary Staphylococcus aureus Strep agalactiae - (group b) Staphylococcus epidermidis 06/17/22 17:40 Blood Culture - Final Blood 06/17/22 17:40 Blood Culture - Final Blood 06/17/22 17:40 Anaerobic Culture - Preliminary Leg - Left
[2022-06-19] MEDS: IOPAMIDOL CONTRAST (ORAL USE) VIAL PO PRN ×2 (11:41→12:45)
--- NOTE | 2022-06-19 12:20 | P.PN ---
Subjective Progress Note Date: 06/19/22 This is a 56-year-old male patient who presented to the ER with concerns of weakness in lower extremity wounds. Patient reports he has had increasing weakness prompting him to call EMS for further assistance Patient has not been into see his primary care doctor in almost years has not taken his medications in over a year. Patient reports that he did not have easy accessibility to rides and getting out of the house. Patient reports he has been dealing with lower extremity wounds that he has been treating at home without improvement. Patient has a past medical history of hypertension, coronary artery disease, CVA, chronic renal disease. Chest x-ray completed showing no definitive acute radiographic process. Troponin negative. WBC 18.7. Hemoglobin 7.6.. At this time patient has been started on IV antibiotics blood cultures ordered. Wound cultures ordered. Infectious disease and wound care service is consulted. Will reorder home medication according to most recent PCP visit. We'll also consult PT OT and social work services for discharge planning and assessment of home situation On 06/19/2022 patient was seen and examined on the medical he is alert and oriented 3 in no apparent distress he is complaining of bilateral lower extremity pain at the sites of cellulitis and ulcers, he is also complaining of back pain and feeling uncomfortable in bed, otherwise he denies any complaints, there is no fever or chills no headache or dizziness no chest pain no shortness of breath no cough, no nausea or vomiting no abdominal pain no diarrhea and no urinary symptoms, hemoglobin continues to drop, patient received 1 unit of red blood cell transfusion yesterday, however today his hemoglobin has dropped to 5.8, a second unit of red blood cell transfusion was ordered this morning, will continue to monitor hemoglobin closely. Stools for Hemoccult was sent results are still pending. White blood count is improving down to 13.5 today, patient remains on IV antibiotics for bilateral lower extremity cellulitis. IV Protonix was added to medication regimen, computed tomography scan of the abdomen and pelvis was ordered by surgery for evaluation, will continue to follow closely. Prognosis is guarded. Objective - Vital Signs Vital signs: Vital Signs Temp 98.3 F 06/19/22 10:39 Pulse 84 06/19/22 10:39 Resp 16 06/19/22 10:39 BP 121/62 06/19/22 10:39 Pulse Ox 97 06/19/22 10:39 FiO2 Intake & Output 06/18/22 06/19/22 06/19/22 18:59 06:59 18:59 Intake Total 670 0 Output Total 600 450 Balance 70 -450 0 Weight 185.973 kg Intake: Oral 360 Blood Product 310 0 Unit 0 Rc As-1 Unit 310 [id number] Output: Urine 600 450 Other: Voiding Method Bedpan Bedpan Bedpan Urinal Urinal # Bowel Movements 2 1 - Exam In general patient is alert and oriented 3 Head normocephalic and atraumatic Neck supple no JVD no goiter Lungs clear to auscultation bilaterally no wheezing or crackles Heart regular rate and rhythm S1-S2, no rub or gallop Abdomen is soft nontender nondistended positive bowel sounds no hepatosplenomegaly Extremities bilateral lower extremity wounds and cellulitis. Serosanguineous drainage noted Neuro no gross focal deficit - Labs CBC & Chem 7: 06/19/22 08:35 06/19/22 08:35 Labs: Abnormal Lab Results - Last 24 Hours (Table) 06/18/22 06/18/22 06/18/22 Range/Units 07:22 07:22 07:22 WBC 18.69 H (4.50-10.00) X 10*3/uL RBC 2.67 L (4.40-5.60) X 10*6/uL Hgb 6.2 L* (13.0-17.0) g/dL Hct 22.0 L (39.6-50.0) % MCH 23.2 L (27.0-32.0) pg MCHC 28.2 L (32.0-37.0) g/dL RDW 17.6 H (11.5-14.5) % Immature Gran # 0.16 H (0.00-0.04) X 10*3/uL Neutrophils # 13.49 H (1.80-7.70) X 10*3/uL Eosinophils # 0.67 H (0.04-0.35) X 10*3/uL Anion Gap 7.10 L (10.00-18.00) mmol/L BUN 49.3 H (9.0-27.0) mg/dL Creatinine (0.66-1.25) mg/dL Est GFR (CKD-EPI)NonAf 57.0 L (60.0-200.0) BUN/Creatinine Ratio 36.25 H (12.00-20.00) Ratio Glucose 124 H (70-110) mg/dL POC Glucose (mg/dL) (70-110) mg/dL Calcium 8.2 L (8.7-10.3) mg/dL Iron 29 L (65-175) ug/dL % Saturation 9.46 L (15.00-50.00) Crossmatch 06/18/22 06/18/22 06/18/22 Range/Units 11:19 13:26 16:56 WBC (4.50-10.00) X 10*3/uL RBC (4.40-5.60) X 10*6/uL Hgb (13.0-17.0) g/dL Hct (39.6-50.0) % MCH (27.0-32.0) pg MCHC (32.0-37.0) g/dL RDW (11.5-14.5) % Immature Gran # (0.00-0.04) X 10*3/uL Neutrophils # (1.80-7.70) X 10*3/uL Eosinophils # (0.04-0.35) X 10*3/uL Anion Gap (10.00-18.00) mmol/L BUN (9.0-27.0) mg/dL Creatinine (0.66-1.25) mg/dL Est GFR (CKD-EPI)NonAf (60.0-200.0) BUN/Creatinine Ratio (12.00-20.00) Ratio Glucose (70-110) mg/dL POC Glucose (mg/dL) 167 H 154 H (70-110) mg/dL Calcium (8.7-10.3) mg/dL Iron (65-175) ug/dL % Saturation (15.00-50.00) Crossmatch See Detail 06/18/22 06/19/22 06/19/22 Range/Units 21:21 07:41 08:35 WBC 13.5 H (4.50-10.00) X 10*3/uL RBC 2.34 L (4.40-5.60) X 10*6/uL Hgb 5.8 L* D (13.0-17.0) g/dL Hct 19.2 L* (39.6-50.0) % MCH 24.9 L (27.0-32.0) pg MCHC 30.4 L (32.0-37.0) g/dL RDW 18.2 H (11.5-14.5) % Immature Gran # (0.00-0.04) X 10*3/uL Neutrophils # (1.80-7.70) X 10*3/uL Eosinophils # (0.04-0.35) X 10*3/uL Anion Gap (10.00-18.00) mmol/L BUN (9.0-27.0) mg/dL Creatinine (0.66-1.25) mg/dL Est GFR (CKD-EPI)NonAf (60.0-200.0) BUN/Creatinine Ratio (12.00-20.00) Ratio Glucose (70-110) mg/dL POC Glucose (mg/dL) 160 H 194 H (70-110) mg/dL Calcium (8.7-10.3) mg/dL Iron (65-175) ug/dL % Saturation (15.00-50.00) Crossmatch 06/19/22 06/19/22 Range/Units 08:35 11:14 WBC (4.50-10.00) X 10*3/uL RBC (4.40-5.60) X 10*6/uL Hgb (13.0-17.0) g/dL Hct (39.6-50.0) % MCH (27.0-32.0) pg MCHC (32.0-37.0) g/dL RDW (11.5-14.5) % Immature Gran # (0.00-0.04) X 10*3/uL Neutrophils # (1.80-7.70) X 10*3/uL Eosinophils # (0.04-0.35) X 10*3/uL Anion Gap (10.00-18.00) mmol/L BUN (9.0-27.0) mg/dL Creatinine 1.33 H (0.66-1.25) mg/dL Est GFR (CKD-EPI)NonAf (60.0-200.0) BUN/Creatinine Ratio (12.00-20.00) Ratio Glucose (70-110) mg/dL POC Glucose (mg/dL) 198 H (70-110) mg/dL Calcium (8.7-10.3) mg/dL Iron (65-175) ug/dL % Saturation (15.00-50.00) Crossmatch Microbiology - Last 24 Hours (Table) 06/17/22 17:40 Gram Stain - Preliminary Leg - Left Wound Culture - Preliminary Gram Neg Bacilli 06/17/22 17:40 Blood Culture Gram Stain - Preliminary Blood 06/17/22 17:40 Blood Culture Gram Stain - Preliminary Blood Blood Culture - Preliminary Staphylococcus aureus Strep agalactiae - (group b) Staphylococcus epidermidis 06/17/22 17:40 Blood Culture - Final Blood 06/17/22 17:40 Blood Culture - Final Blood 06/17/22 17:40 Anaerobic Culture - Preliminary Leg - Left Assessment and Plan Plan: 1. Lower extremity cellulitis with elevated white blood cell count 2. Noncompliance with medication patient reports he has not been taking his meds in over here and has not seen his PCP in over 2 years 3. History of CVA 4. Morbid obesity 5. History of essential hypertension 6. Diabetes mellitus type 2. Hemoglobin A1c 6.8. Patient has not taken medication in over a year 7. Chronic venous stasis 8. History of Parkinson's disease 9. Anemia hemoglobin 7.6 will order stool for occult blood and iron studies 10. Hyperkalemia potassium 5.6 11. Acute kidney injury creatinine 1.3 bun 52 on presentation, improving gradually DVT prophylaxis SCDs due to anemia Infectious disease consulted for lower extremity cellulitis patient maintained on IV antibiotics will consult neurology services to assess her Parkinson medication since patient has not been on for over a year surgical services also consulted for anemia Repeat labs ordered blood and wound culture ordered
[2022-06-19] MEDS: PANTOPRAZOLE 40 MG/10 ML VIAL IVP SCH ×2 (12:31→21:02)
[2022-06-19] MEDS: SODIUM CHLORIDE 0.9% 1,000 ML IV SCH (12:32)
--- NOTE | 2022-06-19 13:22 | P.PN ---
Subjective Progress Note Date: 06/19/22 The patient is seen at bedside and feels about the same. Denies of any new weakness, numbness, or any new neurological issues. Objective - Vital Signs Vital signs: Vital Signs Temp 98.3 F 06/19/22 10:39 Pulse 84 06/19/22 10:39 Resp 16 06/19/22 10:39 BP 121/62 06/19/22 10:39 Pulse Ox 97 06/19/22 10:39 FiO2 Intake & Output 06/18/22 06/19/22 06/19/22 18:59 06:59 18:59 Intake Total 670 0 Output Total 600 450 Balance 70 -450 0 Weight 185.973 kg Intake: Oral 360 Blood Product 310 0 Unit 0 Rc As-1 Unit 310 [id number] Output: Urine 600 450 Other: Voiding Method Bedpan Bedpan Bedpan Urinal Urinal # Bowel Movements 2 1 - Exam GENERAL: The patient is a morbid obese gentleman lying in bed and is not in acute distress. NEUROLOGICAL: Higher mental function: The patient is awake, alert, oriented to self, place and time. Patient is following commands. No aphasia and no neglect. Cranial nerves: The pupils are round, equal and reactive to light. Visual ayala are full to confrontation throughout. Extraocular movement is intact no nystagmus is noted. Facial sensation is normal to touch throughout. The facial strength is normal throughout. Hearing is normal bilaterally to hand rub. Tongue is midline and moved [id number] without any difficulty. No dysarthria is noted. Shoulder shrug is normal bilaterally. Motor: The strength is 5 over 5 throughout uppers while lowers are limited since are wrapped in gauge. Normal tone. No resting tremor. Cerebellum: Normal finger to nose bilaterally. Sensation: Sensation is normal to touch throughout. Reflexes (right/left): Uppers are 1+ while lowers unable to assess since wrapped in gauge. Some other workup during his hospital visit consisted of: Initial white blood cells 18.7 slightly neutrophilic. Hemoglobin most recent is 6.2. Hemoglobin A1c 6.8. TSH is 3.890 The BUN is 49.3 and creatinine is 1.38. CT of the head is reported as no acute intracranial process. Nonspecific white matter changes, likely secondary due to chronic small vessel ischemic disease. I personally reviewed the CT of the head and there is no acute or subacute ischemia. There is no significant encephalomalacia and that's appreciable. There is probably questionable lacunar in the basal ganglia. No bleed is noted. - Labs CBC & Chem 7: 06/19/22 08:35 06/19/22 08:35 Labs: Abnormal Lab Results - Last 24 Hours (Table) 06/18/22 06/18/22 06/18/22 Range/Units 07:22 13:26 16:56 WBC (3.8-10.6) k/uL RBC (4.30-5.90) m/uL Hgb (13.0-17.5) gm/dL Hct (39.0-53.0) % MCH (25.0-35.0) pg MCHC (31.0-37.0) g/dL RDW (11.5-15.5) % Creatinine (0.66-1.25) mg/dL POC Glucose (mg/dL) 154 H (70-110) mg/dL Iron 29 L (65-175) ug/dL % Saturation 9.46 L (15.00-50.00) Crossmatch See Detail 06/18/22 06/19/22 06/19/22 Range/Units 21:21 07:41 08:35 WBC 13.5 H (3.8-10.6) k/uL RBC 2.34 L (4.30-5.90) m/uL Hgb 5.8 L* D (13.0-17.5) gm/dL Hct 19.2 L* (39.0-53.0) % MCH 24.9 L (25.0-35.0) pg MCHC 30.4 L (31.0-37.0) g/dL RDW 18.2 H (11.5-15.5) % Creatinine (0.66-1.25) mg/dL POC Glucose (mg/dL) 160 H 194 H (70-110) mg/dL Iron (65-175) ug/dL % Saturation (15.00-50.00) Crossmatch 06/19/22 06/19/22 Range/Units 08:35 11:14 WBC (3.8-10.6) k/uL RBC (4.30-5.90) m/uL Hgb (13.0-17.5) gm/dL Hct (39.0-53.0) % MCH (25.0-35.0) pg MCHC (31.0-37.0) g/dL RDW (11.5-15.5) % Creatinine 1.33 H (0.66-1.25) mg/dL POC Glucose (mg/dL) 198 H (70-110) mg/dL Iron (65-175) ug/dL % Saturation (15.00-50.00) Crossmatch Microbiology - Last 24 Hours (Table) 06/17/22 17:40 Gram Stain - Preliminary Leg - Left Wound Culture - Preliminary Gram Neg Bacilli 06/17/22 17:40 Blood Culture Gram Stain - Preliminary Blood 06/17/22 17:40 Blood Culture Gram Stain - Preliminary Blood Blood Culture - Preliminary Staphylococcus aureus Strep agalactiae - (group b) Staphylococcus epidermidis 06/17/22 17:40 Blood Culture - Final Blood 06/17/22 17:40 Blood Culture - Final Blood 06/17/22 17:40 Anaerobic Culture - Preliminary Leg - Left Assessment and Plan Assessment: This is a 56-year-old gentleman with history of lacunar stroke in the past and was notified that he had the tremors due to his stroke and eventually did not require any medication since resolved on their own. He does not have any diagnosis of Parkinson's disease Tremor: Seems due to anxiety and component in past due to reported stroke that h as resolved without medication. On examination has no Parkinson's features. I question the diagnosis of Parkinson's in the past. History of lacunar stroke (). Recurrent cellulitis Anemia Diabetes mellitus Hypertension Hyperlipidemia Sleep apnea History of coronary artery disease Morbid obesity Medication noncompliance Plan: Again, the patient does not have Parkinson's and he does not need to be on medication for it. ID is on board for the cellulitis General surgery team is on board for the anemia and planning of scoping him according to nurse. He was worsening anemia and currently is 5.8 Once stable consider ASA 81mg daily and Lipitor 20mg qhs for secondary stroke prophylaxis. We'll defer the rest of the medical management the primary team Recommend the patient to follow-up with neurologist as outpatient within 1-2 weeks. The plan was discussed with the patient. Otherwise no additional neurological work-up. Please notify neurology team if any further concerns. Time with Patient: Less than 30
--- NOTE | 2022-06-19 13:36 | CT ---
EXAMINATION TYPE: CT abdomen pelvis wo con CT DLP: 1806.6 mGycm, Automated exposure control for dose reduction was used. DATE OF EXAM: 06/19/2022 1:28 PM COMPARISON: None CLINICAL INDICATION:Male, 56 years old with history of Abdominal pain, diverticulitis; Abdominal pain , diverticulitis TECHNIQUE: Standard CT of the abdomen and pelvis following the administration of oral contrast. Cor onal and sagittal reformats were performed. FINDINGS: Evaluation due to patient's body habitus and lack of intravenous contrast. LOWER CHEST: Visualized lungs are clear. Mild cardiomegaly. No pericardial effusion. ABDOMEN LIVER: Unremarkable noncontrast appearance. GALLBLADDER AND BILE DUCTS: Unremarkable. PANCREAS: Unremarkable noncontrast appearance. SPLEEN: Unremarkable noncontrast appearance. ADRENAL GLANDS: Unremarkable noncontrast appearance. KIDNEYS AND URETERS: No hydronephrosis. Nonobstructive right inferior pole calculus measuring up to 7 mm. PELVIS BLADDER: Unremarkable REPRODUCTIVE: Unremarkable. ABDOMEN & PELVIS STOMACH AND BOWEL: Stomach and duodenum are unremarkable. No focal wall thickening or surrounding inf lammatory changes. Evidence for acute diverticulitis. Enteric contrast reaches the descending colon. No pericolonic abscess. No evidence of bowel obstruction. PERITONEUM: No evidence of pneumoperitoneum or free fluid. VASCULATURE: Mild atherosclerotic calcifications are present throughout the abdominal aorta and its b ranches. No evidence of aortic aneurysm. MUSCULOSKELETAL: No acute osseous abnormalities. Mild disc degeneration changes are present throughou t the thoracolumbar spine. No acute osseous abnormality. LYMPH NODES: No gross evidence for lymphadenopathy. SOFT TISSUE/ABDOMINAL WALL: Small fat filled umbilical hernia. IMPRESSION: 1. No acute abdominal/pelvic process within limitations of a noncontrast exam and patient body habit us. 2. Nonobstructive right renal calculus.
--- NOTE | 2022-06-19 15:37 | P.PN ---
Subjective Progress Note Date: 06/19/22 Principal diagnosis: Bilateral lower extremity ulcers cellulitis and bacteremia Patient is a 56-year male with a past medical history significant for CVA TIA coronary disease heart failure patient did have a history of bilateral lower extremity venous stasis ulcer, presented to hospital with weakness and syncopal episode patient did have worsening of bilateral lower extremity wound and cellulitis and did have evidence of bacteremia. On today's evaluation that is 06/19/2022, the patient denies having any fever or chills, breathing slightly comfortably currently on room air no chest pain or shortness of breath occasional cough no abdominal pain or worsening pain to bilateral extremity no diarrhea reported Objective - Vital Signs Vital signs: Vital Signs Temp 98.2 F 06/19/22 14:02 Pulse 97 06/19/22 14:02 Resp 16 06/19/22 14:02 BP 131/85 06/19/22 14:02 Pulse Ox 97 06/19/22 14:02 FiO2 Intake & Output 06/18/22 06/19/22 06/19/22 18:59 06:59 18:59 Intake Total 670 310 Output Total 600 450 Balance 70 -450 310 Weight 185.973 kg Intake: Oral 360 Blood Product 310 310 Rc As-1 Unit 310 [id number] Rc As-1 Unit 310 [id number] Output: Urine 600 450 Other: Voiding Method Bedpan Bedpan Bedpan Urinal Urinal # Bowel Movements 2 1 - Exam GENERAL DESCRIPTION: A middle-age male lying in bed in no distress RESPIRATORY SYSTEM: Unlabored breathing , decreased breath sounds at bases HEART: S1 S2 regular rate and rhythm , ABDOMEN: Soft , no tenderness EXTREMITIES: Bilateral lower extremity currently wrapped no drainage on the dressing - Labs CBC & Chem 7: 06/19/22 08:35 06/19/22 08:35 Labs: Abnormal Lab Results - Last 24 Hours (Table) 06/18/22 06/18/22 06/18/22 Range/Units 07:22 13:26 16:56 WBC (3.8-10.6) k/uL RBC (4.30-5.90) m/uL Hgb (13.0-17.5) gm/dL Hct (39.0-53.0) % MCH (25.0-35.0) pg MCHC (31.0-37.0) g/dL RDW (11.5-15.5) % Creatinine (0.66-1.25) mg/dL POC Glucose (mg/dL) 154 H (70-110) mg/dL Hemoglobin A1c (0.0-6.0) % Iron 29 L (65-175) ug/dL % Saturation 9.46 L (15.00-50.00) Crossmatch See Detail 06/18/22 06/19/22 06/19/22 Range/Units 21:21 07:41 08:35 WBC (3.8-10.6) k/uL RBC (4.30-5.90) m/uL Hgb (13.0-17.5) gm/dL Hct (39.0-53.0) % MCH (25.0-35.0) pg MCHC (31.0-37.0) g/dL RDW (11.5-15.5) % Creatinine (0.66-1.25) mg/dL POC Glucose (mg/dL) 160 H 194 H (70-110) mg/dL Hemoglobin A1c 6.5 H (0.0-6.0) % Iron (65-175) ug/dL % Saturation (15.00-50.00) Crossmatch 06/19/22 06/19/22 06/19/22 Range/Units 08:35 08:35 11:14 WBC 13.5 H (3.8-10.6) k/uL RBC 2.34 L (4.30-5.90) m/uL Hgb 5.8 L* D (13.0-17.5) gm/dL Hct 19.2 L* (39.0-53.0) % MCH 24.9 L (25.0-35.0) pg MCHC 30.4 L (31.0-37.0) g/dL RDW 18.2 H (11.5-15.5) % Creatinine 1.33 H (0.66-1.25) mg/dL POC Glucose (mg/dL) 198 H (70-110) mg/dL Hemoglobin A1c (0.0-6.0) % Iron (65-175) ug/dL % Saturation (15.00-50.00) Crossmatch Microbiology - Last 24 Hours (Table) 06/17/22 17:40 Blood Culture Gram Stain - Preliminary Blood Blood Culture - Preliminary Staphylococcus aureus Strep agalactiae - (group b) Staphylococcus epidermidis 06/17/22 17:40 Gram Stain - Preliminary Leg - Left Wound Culture - Preliminary Gram Neg Bacilli 06/17/22 17:40 Blood Culture Gram Stain - Preliminary Blood Assessment and Plan (1) Bacteremia Current Visit: Yes Status: Acute Code(s): R78.81 - BACTEREMIA SNOMED Code(s): 1595762 (2) Bilateral lower leg cellulitis Current Visit: Yes Status: Acute Code(s): L03.116 - CELLULITIS OF LEFT LOWER LIMB; L03.115 - CELLULITIS OF RIGHT LOWER LIMB SNOMED Code(s): 998435305 Plan: 1patient with bilateral lower extremity venous stasis ulcer and a component of cellulitis likely from gram-positive skin ani such as strep or Staph aureus 2-patient with gram-positive bacteremia likely related to bilateral extremity wound and cellulitis, blood cultures growing staph aureus, Streptococcus however local cultures are currently growing gram-negative with IV sensitivity is pending 3-patient to continue with the vancomycin while waiting for the culture to finalize while monitoring his kidney function closely, we will add cefepime to cover for gram-negative and discontinue clindamycin 4-wound care per wound care team which has already been consulted and seen the patient
[2022-06-19] MEDS: HYDROmorphone 0.5 MG/0.5 ML SYRINGE IVP PRN (15:43)
[2022-06-19] MEDS: CEFEPIME 2 GM in SODIUM CHLORIDE 0.9% 100 ML IVPB SCH (15:43)
[2022-06-19 16:49] LABS: Anisocytosis Slight; Basophils % (A) 0 %; Eosinophils # (A) 0.7 k/uL (0-0.7); Eosinophils % (A) 4 %; HCT 20.6 % (39.0-53.0); Hypochromasia Marked; Lymphocytes # (A) 2.7 k/uL (1.0-4.8); Lymphocytes % (A) 16 %; MCV 83.8 fL (80.0-100.0); Mean Platelet Volume 8.2; Monocytes # (A) 0.8 k/uL (0-1.0); Monocytes % (A) 5 %; Neutrophils # (A) 12.6 k/uL (1.3-7.7); Neutrophils % (A) 74 %; Platelet Count 339 k/uL (150-450); Poikilocytosis Slight; RBC 2.46 m/uL (4.30-5.90); WBC 17.1 k/uL (3.8-10.6)
[2022-06-19 17:05] LABS: Glucose,Whole Blood 164 mg/dL (70-110)
[2022-06-19 17:07] LABS: HGB 6.4 gm/dL (13.0-17.5)
[2022-06-19 20:15] LABS: Glucose,Whole Blood 151 mg/dL (70-110)
[2022-06-20] MEDS: SODIUM CHLORIDE 0.9% 1,000 ML IV SCH ×3 (00:06→17:13)
[2022-06-20] MEDS: CEFEPIME 2 GM in SODIUM CHLORIDE 0.9% 100 ML IVPB SCH ×3 (00:06→20:48)
[2022-06-20 06:06] LABS: Glucose,Whole Blood 185 mg/dL (70-110)
[2022-06-20] MEDS: HYDROmorphone 0.5 MG/0.5 ML SYRINGE IVP PRN ×3 (06:17→17:14)
[2022-06-20] MEDS: INSULIN ASPART (NovoLOG) 100 UNIT/ML VIAL SQ SCH ×4 (06:18→20:48)
[2022-06-20] MEDS: PANTOPRAZOLE 40 MG/10 ML VIAL IVP SCH ×2 (07:56→20:48)
[2022-06-20] MEDS: VANCOMYCIN 2,500 MG in SODIUM CHLORIDE 0.9% 500 ML 500 ML IVPB SCH (09:56)
--- NOTE | 2022-06-20 10:16 | P.PN ---
Subjective Progress Note Date: 06/20/22 This is a 56-year-old male patient who presented to the ER with concerns of weakness in lower extremity wounds. Patient reports he has had increasing weakness prompting him to call EMS for further assistance Patient has not been into see his primary care doctor in almost years has not taken his medications in over a year. Patient reports that he did not have easy accessibility to rides and getting out of the house. Patient reports he has been dealing with lower extremity wounds that he has been treating at home without improvement. Patient has a past medical history of hypertension, coronary artery disease, CVA, chronic renal disease. Chest x-ray completed showing no definitive acute radiographic process. Troponin negative. WBC 18.7. Hemoglobin 7.6.. At this time patient has been started on IV antibiotics blood cultures ordered. Wound cultures ordered. Infectious disease and wound care service is consulted. Will reorder home medication according to most recent PCP visit. We'll also consult PT OT and social work services for discharge planning and assessment of home situation On 06/19/2022 patient was seen and examined on the medical he is alert and oriented 3 in no apparent distress he is complaining of bilateral lower extremity pain at the sites of cellulitis and ulcers, he is also complaining of back pain and feeling uncomfortable in bed, otherwise he denies any complaints, there is no fever or chills no headache or dizziness no chest pain no shortness of breath no cough, no nausea or vomiting no abdominal pain no diarrhea and no urinary symptoms, hemoglobin continues to drop, patient received 1 unit of red blood cell transfusion yesterday, however today his hemoglobin has dropped to 5.8, a second unit of red blood cell transfusion was ordered this morning, will continue to monitor hemoglobin closely. Stools for Hemoccult was sent results are still pending. White blood count is improving down to 13.5 today, patient remains on IV antibiotics for bilateral lower extremity cellulitis. IV Protonix was added to medication regimen, computed tomography scan of the abdomen and pelvis was ordered by surgery for evaluation, will continue to follow closely. Prognosis is guarded. On 06/20/2022 patient is currently resting comfortably in bed alert and oriented 3. Per nursing staff patient had one dark stool last night awaiting hemoglobin level to assess if patient needs blood transfusion. Plans for EGD tomorrow per surgical services did also discuss case with neurologist Dr. Simpson patient never had the diagnosis of Parkinson's does not require any initiation of Parkinson's medication. Patient was on levodopa due to tremors post CVA. Patient remains on Maxipime and vancomycin. At this time patient denies chest pain or shortness breath. Patient denies nausea vomiting or diarrhea. Patient denies any urinary burning or frequency. CT of abdomen and pelvis showing no acute abdominal pelvic process Objective - Vital Signs Vital signs: Vital Signs Temp 98.0 F 06/20/22 08:06 Pulse 77 06/20/22 09:30 Resp 18 06/20/22 09:30 BP 118/69 06/20/22 07:53 Pulse Ox 97 06/20/22 09:24 FiO2 Intake & Output 06/19/22 06/20/22 06/20/22 18:59 06:59 18:59 Intake Total 310 310 Output Total 250 1200 Balance 60 -890 Intake: Blood Product 310 310 Rc As-1 Unit 310 [id number] Rc As-1 Unit 310 [id number] Output: Urine 250 1200 Other: Voiding Method Bedpan Urinal Urinal Urinal # Bowel Movements 1 1 - Exam In general patient is alert and oriented 3 Head normocephalic and atraumatic Neck supple no JVD no goiter Lungs clear to auscultation bilaterally no wheezing or crackles Heart regular rate and rhythm S1-S2, no rub or gallop Abdomen is soft nontender nondistended positive bowel sounds no hepatosplenomegaly Extremities bilateral lower extremity wounds and cellulitis. Serosanguineous drainage noted Neuro no gross focal deficit - Labs CBC & Chem 7: 06/19/22 16:20 06/19/22 08:35 Labs: Abnormal Lab Results - Last 24 Hours (Table) 06/18/22 06/19/22 06/19/22 Range/Units 13:26 08:35 11:14 WBC (3.8-10.6) k/uL RBC (4.30-5.90) m/uL Hgb (13.0-17.5) gm/dL Hct (39.0-53.0) % RDW (11.5-15.5) % Neutrophils # (1.3-7.7) k/uL POC Glucose (mg/dL) 198 H (70-110) mg/dL Hemoglobin A1c 6.5 H (0.0-6.0) % Crossmatch See Detail 06/19/22 06/19/22 06/19/22 Range/Units 16:20 17:03 20:14 WBC 17.1 H (3.8-10.6) k/uL RBC 2.46 L (4.30-5.90) m/uL Hgb 6.4 L* (13.0-17.5) gm/dL Hct 20.6 L (39.0-53.0) % RDW 18.0 H (11.5-15.5) % Neutrophils # 12.6 H (1.3-7.7) k/uL POC Glucose (mg/dL) 164 H 151 H (70-110) mg/dL Hemoglobin A1c (0.0-6.0) % Crossmatch 06/20/22 Range/Units 06:04 WBC (3.8-10.6) k/uL RBC (4.30-5.90) m/uL Hgb (13.0-17.5) gm/dL Hct (39.0-53.0) % RDW (11.5-15.5) % Neutrophils # (1.3-7.7) k/uL POC Glucose (mg/dL) 185 H (70-110) mg/dL Hemoglobin A1c (0.0-6.0) % Crossmatch Microbiology - Last 24 Hours (Table) 06/17/22 17:40 Blood Culture Gram Stain - Preliminary Blood Blood Culture - Preliminary Staphylococcus aureus Strep agalactiae - (group b) Staphylococcus epidermidis 06/17/22 17:40 Gram Stain - Preliminary Leg - Left Wound Culture - Preliminary Gram Neg Bacilli Assessment and Plan Assessment: 1. Lower extremity cellulitis with elevated white blood cell count 2. Noncompliance with medication patient reports he has not been taking his meds in over here and has not seen his PCP in over 2 years 3. History of CVA 4. Morbid obesity 5. History of essential hypertension 6. Diabetes mellitus type 2. Hemoglobin A1c 6.8. Patient has not taken medication in over a year 7. Chronic venous stasis 8. Patient previously on levodopa due to tremors post CVA discussed case with neurologist patient does not require any further medication 9. Anemia with positive occult blood. Plans for EGD on Tuesday per surgical services 10. Hyperkalemia potassium 5.6 11. Acute kidney injury creatinine 1.3 bun 52 on presentation, improving gradually DVT prophylaxis SCDs due to anemia Infectious disease consulted for lower extremity cellulitis patient maintained on IV antibiotics Per neurology patient never had the diagnosis of Parkinson's disease does not r equire any further medication. Recommendations of initiation of aspirin once surgical clearance surgical services also consulted for anemia Patient received 1 unit PRBCs on 06/19/2022 Repeat labs ordered blood and wound culture ordered
[2022-06-20] MEDS: COLLAGENASE 250 UNIT/GM OINTMENT 30 GM TUBE TOPICAL SCH (11:10)
[2022-06-20 11:40] LABS: Anisocytosis Slight; Basophils % (A) 0 %; Eosinophils # (A) 0.8 k/uL (0-0.7); Eosinophils % (A) 7 %; HCT 23.8 % (39.0-53.0); HGB 7.1 gm/dL (13.0-17.5); Hypochromasia Marked; Lymphocytes # (A) 2.2 k/uL (1.0-4.8); Lymphocytes % (A) 18 %; MCH 26.2 pg (25.0-35.0); MCHC 29.9 g/dL (31.0-37.0); MCV 87.6 fL (80.0-100.0); Mean Platelet Volume 9.6; Monocytes # (A) 0.6 k/uL (0-1.0); Monocytes % (A) 5 %; Neutrophils # (A) 8.7 k/uL (1.3-7.7); Neutrophils % (A) 69 %; Platelet Count 322 k/uL (150-450); Poikilocytosis Moderate; RBC 2.71 m/uL (4.30-5.90); RDW 18.2 % (11.5-15.5); WBC 12.6 k/uL (3.8-10.6)
[2022-06-20 11:42] LABS: Glucose,Whole Blood 177 mg/dL (70-110)
--- NOTE | 2022-06-20 16:17 | P.PN ---
Subjective Progress Note Date: 06/20/22 Principal diagnosis: Bilateral lower extremity ulcers cellulitis and bacteremia Patient is a 56-year male with a past medical history significant for CVA TIA coronary disease heart failure patient did have a history of bilateral lower extremity venous stasis ulcer, presented to hospital with weakness and syncopal episode patient did have worsening of bilateral lower extremity wound and cellulitis and did have evidence of bacteremia. On today's evaluation that is 06/20/2022, the patient remains to be afebrile, the patient is breathing slightly comfortably currently on 2L nasal cannula oxygen, the patient denies chest pain or shortness of breath occasional cough no abdominal pain or worsening pain to bilateral extremity no diarrhea reported Objective - Vital Signs Vital signs: Vital Signs Temp 98.0 F 06/20/22 08:06 Pulse 77 06/20/22 15:14 Resp 18 06/20/22 15:14 BP 119/65 06/20/22 12:12 Pulse Ox 98 06/20/22 12:12 FiO2 Intake & Output 06/19/22 06/20/22 06/20/22 18:59 06:59 18:59 Intake Total 071 314 1899 Output Total 250 1200 1100 Balance 60 -890 276 Intake: Intake, IV Titration 900 Amount Cefepime 2 gm In Sodium 100 Chloride 0.9% 100 ml @ 25 mls/hr IVPB Q8HR GERMAINE Rx# :[id number] Sodium Chloride 0.9% 1, 300 000 ml @ 75 mls/hr IV . [id number] GERMAINE Rx#:[id number] Vancomycin 2,500 mg In 500 Sodium Chloride 0.9% 500 ml 500 ml @ 167 mls/hr IVPB Q16H GERMAINE Rx#: [id number] Oral 476 Blood Product 310 310 As-1 Unit 310 [id number] As-1 Unit 310 [id number] Output: Urine 250 1200 1100 Other: Voiding Method Bedpan Urinal Urinal Urinal # Bowel Movements 1 1 - Exam GENERAL DESCRIPTION: A middle-age male lying in bed in no distress RESPIRATORY SYSTEM: Unlabored breathing , decreased breath sounds at bases HEART: S1 S2 regular rate and rhythm , ABDOMEN: Soft , no tenderness EXTREMITIES: Bilateral lower extremity currently wrapped no drainage on the dressing - Labs CBC & Chem 7: 06/20/22 10:03 06/20/22 10:03 Labs: Abnormal Lab Results - Last 24 Hours (Table) 06/18/22 06/19/22 06/19/22 Range/Units 13:26 16:20 17:03 WBC 17.1 H (3.8-10.6) k/uL RBC 2.46 L (4.30-5.90) m/uL Hgb 6.4 L* (13.0-17.5) gm/dL Hct 20.6 L (39.0-53.0) % MCHC (31.0-37.0) g/dL RDW 18.0 H (11.5-15.5) % Neutrophils # 12.6 H (1.3-7.7) k/uL Eosinophils # (0-0.7) k/uL Creatinine (0.66-1.25) mg/dL POC Glucose (mg/dL) 164 H (70-110) mg/dL Vancomycin Trough ug/mL Crossmatch See Detail 06/19/22 06/20/22 06/20/22 Range/Units 20:14 06:04 10:03 WBC (3.8-10.6) k/uL RBC (4.30-5.90) m/uL Hgb (13.0-17.5) gm/dL Hct (39.0-53.0) % MCHC (31.0-37.0) g/dL RDW (11.5-15.5) % Neutrophils # (1.3-7.7) k/uL Eosinophils # (0-0.7) k/uL Creatinine 1.48 H (0.66-1.25) mg/dL POC Glucose (mg/dL) 151 H 185 H (70-110) mg/dL Vancomycin Trough ug/mL Crossmatch 06/20/22 06/20/22 06/20/22 Range/Units 10:03 10:03 11:41 WBC 12.6 H (3.8-10.6) k/uL RBC 2.71 L (4.30-5.90) m/uL Hgb 7.1 L (13.0-17.5) gm/dL Hct 23.8 L (39.0-53.0) % MCHC 29.9 L (31.0-37.0) g/dL RDW 18.2 H (11.5-15.5) % Neutrophils # 8.7 H (1.3-7.7) k/uL Eosinophils # 0.8 H (0-0.7) k/uL Creatinine (0.66-1.25) mg/dL POC Glucose (mg/dL) 177 H (70-110) mg/dL Vancomycin Trough 31.3 H* ug/mL Crossmatch Microbiology - Last 24 Hours (Table) 06/17/22 17:40 Blood Culture Gram Stain - Preliminary Blood Blood Culture - Preliminary Presumptive MRSA Strep agalactiae - (group b) Coagulase Negative Staph 06/17/22 17:40 Gram Stain - Final Leg - Left Wound Culture - Final Morganella morganii Methicillin resist S. aureus 06/17/22 17:40 Blood Culture Gram Stain - Preliminary Blood Blood Culture - Preliminary Staphylococcus aureus Strep agalactiae - (group b) Staphylococcus epidermidis Assessment and Plan (1) Bacteremia Current Visit: Yes Status: Acute Code(s): R78.81 - BACTEREMIA SNOMED Code(s): 0680857 (2) Bilateral lower leg cellulitis Current Visit: Yes Status: Acute Code(s): L03.116 - CELLULITIS OF LEFT LOWER LIMB; L03.115 - CELLULITIS OF RIGHT LOWER LIMB SNOMED Code(s): 397300027 Plan: 1patient with bilateral lower extremity venous stasis ulcer and a component of cellulitis likely from gram-positive skin ani such as strep or Staph aureus 2-patient with MRSA bacteremia likely related to bilateral extremity wound and cellulitis, blood cultures growing MRSA as well as gram-negative 3-patient to continue with the vancomycin and cefepime and monitor his clinical course closely Time with Patient: Less than 30
[2022-06-20 16:40] LABS: Glucose,Whole Blood 157 mg/dL (70-110)
[2022-06-20 20:16] LABS: Glucose,Whole Blood 177 mg/dL (70-110)
--- NOTE | 2022-06-20 20:47 | P.PN ---
Subjective Progress Note Date: 06/20/22 CHIEF COMPLAINT: Anemia HISTORY OF PRESENT ILLNESS: The patient is a 56 year old male admitted to the hospital due to weakness. He has received 2 units of blood. Hemoglobin up from 5.8-7.1. He reports feeling better but still weak. No abdominal pain. He had dark stools earlier this morning as identified by the nurse. REVIEW OF ORGAN SYSTEMS: CONSTITUTIONAL: No fevers or chills. No recent weight loss. Morbid obesity, BMI 58.8 RESPIRATORY: He has obstructive sleep apnea. CARDIOVASCULAR: Has coronary artery disease. Has congestive heart failure. Has venous stasis disease. GASTROINTESTINAL: Has dark stools. Has diarrhea. SKIN: Has severe bilateral venous stasis disease of the lower extremities. PHYSICAL EXAM: VITALS: Reviewed CONSTITUTIONAL: Well developed and in no acute distress. EYES: Conjuctivae without sclera icterus. Extraocular movements grossly intact. HEAD, EARS, NOSE, THROAT: Moist buccal mucosa. Head is atraumatic, normocephalic. Hears conversational speech. No nasal drainage. RESPIRATORY: Non-labored respirations and equal bilateral excursions. No gross wheezes. CARDIOVASCULAR: Palpable 2+ radial pulses. ABDOMEN: Obese. No peritonitis MUSCULOSKELETAL: Bilateral foot dressings present SKIN: Warm and well perfused with good skin turgor. NEUROLOGIC: Cranial nerves II through XII grossly intact. No focal or lateralizing signs. PSYCH: Appropriate affect. Alert and oriented to person, place and time. Displays appropriate insight. CLINCAL LABS: Reviewed. WBC over 18,000, now over 13,000, down to 12,600. Hemoglobin 6.2, anemia, now 5.8, up to 7.1. STUDIES: CT of the abdomen and pelvis independently reviewed demonstrates no free air. No inflammatory changes. No diverticulitis. This is my independent interpretation. ASSESSMENT: 1. Anemia 2. Bilateral venous stasis disease 3. Morbid obesity due to excess calories, BMI 58.8 4. Chronic venous stasis disease 5. Leukocytosis 6. Chronic renal disease 7. GI bleed with melena PLAN: 1. He still reports weakness. Recommend upper endoscopy due to melena 2. Recommend nephrology consultation due to chronic kidney disease 3. Recommend colonoscopy while inpatient after bowel prep Objective - Vital Signs Vital signs: Vital Signs Temp 98.0 F 06/20/22 08:06 Pulse 83 06/20/22 16:00 Resp 18 06/20/22 16:00 BP 140/54 06/20/22 16:00 Pulse Ox 99 06/20/22 16:00 FiO2 Intake & Output 06/20/22 06/20/22 06/21/22 06:59 18:59 06:59 Intake Total 310 1376 Output Total 1200 1100 375 Balance -890 276 -375 Intake: Intake, IV Titration 900 Amount Cefepime 2 gm In Sodium 100 Chloride 0.9% 100 ml @ 25 mls/hr IVPB Q8HR GERMAINE Rx# :[id number] Sodium Chloride 0.9% 1, 300 000 ml @ 75 mls/hr IV . [id number] GERMAINE Rx#:[id number] Vancomycin 2,500 mg In 500 Sodium Chloride 0.9% 500 ml 500 ml @ 167 mls/hr IVPB Q16H GERMAINE Rx#: [id number] Oral 476 Blood Product 310 Rc As-1 Unit 310 [id number] Output: Urine 1200 1100 375 Other: Voiding Method Urinal Urinal # Bowel Movements 1 - Labs CBC & Chem 7: 06/20/22 10:03 06/20/22 10:03 Labs: Abnormal Lab Results - Last 24 Hours (Table) 06/18/22 06/20/22 06/20/22 Range/Units 13:26 06:04 10:03 WBC (3.8-10.6) k/uL RBC (4.30-5.90) m/uL Hgb (13.0-17.5) gm/dL Hct (39.0-53.0) % MCHC (31.0-37.0) g/dL RDW (11.5-15.5) % Neutrophils # (1.3-7.7) k/uL Eosinophils # (0-0.7) k/uL Creatinine 1.48 H (0.66-1.25) mg/dL POC Glucose (mg/dL) 185 H (70-110) mg/dL Vancomycin Trough ug/mL Crossmatch See Detail 06/20/22 06/20/22 06/20/22 Range/Units 10:03 10:03 11:41 WBC 12.6 H (3.8-10.6) k/uL RBC 2.71 L (4.30-5.90) m/uL Hgb 7.1 L (13.0-17.5) gm/dL Hct 23.8 L (39.0-53.0) % MCHC 29.9 L (31.0-37.0) g/dL RDW 18.2 H (11.5-15.5) % Neutrophils # 8.7 H (1.3-7.7) k/uL Eosinophils # 0.8 H (0-0.7) k/uL Creatinine (0.66-1.25) mg/dL POC Glucose (mg/dL) 177 H (70-110) mg/dL Vancomycin Trough 31.3 H* ug/mL Crossmatch 06/20/22 06/20/22 Range/Units 16:38 20:14 WBC (3.8-10.6) k/uL RBC (4.30-5.90) m/uL Hgb (13.0-17.5) gm/dL Hct (39.0-53.0) % MCHC (31.0-37.0) g/dL RDW (11.5-15.5) % Neutrophils # (1.3-7.7) k/uL Eosinophils # (0-0.7) k/uL Creatinine (0.66-1.25) mg/dL POC Glucose (mg/dL) 157 H 177 H (70-110) mg/dL Vancomycin Trough ug/mL Crossmatch Microbiology - Last 24 Hours (Table) 06/17/22 17:40 Blood Culture Gram Stain - Preliminary Blood Blood Culture - Preliminary Presumptive MRSA Strep agalactiae - (group b) Coagulase Negative Staph 06/17/22 17:40 Gram Stain - Final Leg - Left Wound Culture - Final Morganella morganii Methicillin resist S. aureus
[2022-06-21] MEDS: VANCOMYCIN 2,500 MG in SODIUM CHLORIDE 0.9% 500 ML 500 ML IVPB SCH ×2 (03:10→18:00)
[2022-06-21] MEDS: SODIUM CHLORIDE 0.9% 1,000 ML IV SCH ×3 (05:35→17:18)
[2022-06-21 05:59] LABS: Glucose,Whole Blood 193 mg/dL (70-110)
[2022-06-21] MEDS: INSULIN ASPART (NovoLOG) 100 UNIT/ML VIAL SQ SCH ×4 (06:22→20:49)
[2022-06-21] MEDS: HYDROmorphone 0.5 MG/0.5 ML SYRINGE IVP PRN (06:22)
[2022-06-21 08:44] LABS: Anisocytosis Slight; Basophils % (A) 0 %; Eosinophils # (A) 0.9 k/uL (0-0.7); Eosinophils % (A) 6 %; Hypochromasia Marked; Lymphocytes # (A) 2.1 k/uL (1.0-4.8); Lymphocytes % (A) 15 %; MCH 26.7 pg (25.0-35.0); MCHC 30.2 g/dL (31.0-37.0); MCV 88.4 fL (80.0-100.0); Mean Platelet Volume 7.8; Monocytes # (A) 0.7 k/uL (0-1.0); Monocytes % (A) 5 %; Neutrophils # (A) 9.9 k/uL (1.3-7.7); Neutrophils % (A) 72 %; Platelet Count 278 k/uL (150-450); Poikilocytosis Moderate; RDW 19.7 % (11.5-15.5); WBC 13.8 k/uL (3.8-10.6)
[2022-06-21] MEDS: PANTOPRAZOLE 40 MG/10 ML VIAL IVP SCH ×2 (08:49→20:49)
[2022-06-21] MEDS: CEFEPIME 2 GM in SODIUM CHLORIDE 0.9% 100 ML IVPB SCH ×2 (08:49→20:48)
[2022-06-21] MEDS: COLLAGENASE 250 UNIT/GM OINTMENT 30 GM TUBE TOPICAL SCH (08:49)
[2022-06-21 09:00] LABS: Albumin 2.3 g/dL (3.5-5.0); Calcium 8.1 mg/dL (8.4-10.2); Potassium 5.3 mmol/L (3.5-5.1); Total Bilirubin 0.2 mg/dL (0.2-1.3); Total Protein 5.4 g/dL (6.3-8.2)
[2022-06-21 09:08] LABS: HGB 5.1 gm/dL (13.0-17.5)
[2022-06-21 09:10] LABS: HCT 16.8 % (39.0-53.0)
[2022-06-21] MEDS ORDERED: PROPOFOL 10 MG/ML 20 ML VIAL IV ONE (09:29)
[2022-06-21] MEDS ORDERED: IV FLUID CONTINUATION 1,000 ML IV ONE (09:34)
--- NOTE | 2022-06-21 10:00 | P.PN ---
Subjective Progress Note Date: 06/21/22 This is a 56-year-old male patient who presented to the ER with concerns of weakness in lower extremity wounds. Patient reports he has had increasing weakness prompting him to call EMS for further assistance Patient has not been into see his primary care doctor in almost years has not taken his medications in over a year. Patient reports that he did not have easy accessibility to rides and getting out of the house. Patient reports he has been dealing with lower extremity wounds that he has been treating at home without improvement. Patient has a past medical history of hypertension, coronary artery disease, CVA, chronic renal disease. Chest x-ray completed showing no definitive acute radiographic process. Troponin negative. WBC 18.7. Hemoglobin 7.6.. At this time patient has been started on IV antibiotics blood cultures ordered. Wound cultures ordered. Infectious disease and wound care service is consulted. Will reorder home medication according to most recent PCP visit. We'll also consult PT OT and social work services for discharge planning and assessment of home situation On 06/19/2022 patient was seen and examined on the medical he is alert and oriented 3 in no apparent distress he is complaining of bilateral lower extremity pain at the sites of cellulitis and ulcers, he is also complaining of back pain and feeling uncomfortable in bed, otherwise he denies any complaints, there is no fever or chills no headache or dizziness no chest pain no shortness of breath no cough, no nausea or vomiting no abdominal pain no diarrhea and no urinary symptoms, hemoglobin continues to drop, patient received 1 unit of red blood cell transfusion yesterday, however today his hemoglobin has dropped to 5.8, a second unit of red blood cell transfusion was ordered this morning, will continue to monitor hemoglobin closely. Stools for Hemoccult was sent results are still pending. White blood count is improving down to 13.5 today, patient remains on IV antibiotics for bilateral lower extremity cellulitis. IV Protonix was added to medication regimen, computed tomography scan of the abdomen and pelvis was ordered by surgery for evaluation, will continue to follow closely. Prognosis is guarded. On 06/20/2022 patient is currently resting comfortably in bed alert and oriented 3. Per nursing staff patient had one dark stool last night awaiting hemoglobin level to assess if patient needs blood transfusion. Plans for EGD tomorrow per surgical services did also discuss case with neurologist Dr. Simpson patient never had the diagnosis of Parkinson's does not require any initiation of Parkinson's medication. Patient was on levodopa due to tremors post CVA. Patient remains on Maxipime and vancomycin. At this time patient denies chest pain or shortness breath. Patient denies nausea vomiting or diarrhea. Patient denies any urinary burning or frequency. CT of abdomen and pelvis showing no acute abdominal pelvic process On 06/21/2022 patient is alert and oriented 3. Patient currently getting transferred for EGD. Hemoglobin 5.1. 2 units of PRBCs have been ordered. This was discussed with nurse. Current vital signs temp 98.1, pulse rate 86, respiratory rate 19, blood pressure 110/51 with a pulse ox 98% on 2 L. Patient remains on IV Maxipime and vancomycin Objective - Vital Signs Vital signs: Vital Signs Temp 98.1 F 06/21/22 08:00 Pulse 86 06/21/22 08:00 Resp 19 06/21/22 08:00 BP 110/51 06/21/22 08:00 Pulse Ox 98 06/21/22 08:42 FiO2 21 06/21/22 08:42 Intake & Output 06/20/22 06/21/22 06/21/22 18:59 06:59 18:59 Intake Total 1376 200 Output Total 1100 2125 Balance 276 -2125 200 Intake: IV 200 Intake, IV Titration 900 Amount Cefepime 2 gm In Sodium 100 Chloride 0.9% 100 ml @ 25 mls/hr IVPB Q8HR GERMAINE Rx# :[id number] Sodium Chloride 0.9% 1, 300 000 ml @ 75 mls/hr IV . [id number] GERMAINE Rx#:[id number] Vancomycin 2,500 mg In 500 Sodium Chloride 0.9% 500 ml 500 ml @ 167 mls/hr IVPB Q16H GERMAINE Rx#: [id number] Oral 476 Output: Urine 1100 2125 Other: Voiding Method Urinal Urinal - Exam In general patient is alert and oriented 3 Head normocephalic and atraumatic Neck supple no JVD no goiter Lungs clear to auscultation bilaterally no wheezing or crackles Heart regular rate and rhythm S1-S2, no rub or gallop Abdomen is soft nontender nondistended positive bowel sounds no hepatosplenomegaly Extremities bilateral lower extremity wounds and cellulitis. Serosanguineous drainage noted Neuro no gross focal deficit - Labs CBC & Chem 7: 06/21/22 08:02 06/21/22 08:02 Labs: Abnormal Lab Results - Last 24 Hours (Table) 06/18/22 06/20/22 06/20/22 Range/Units 13:26 10:03 10:03 WBC (3.8-10.6) k/uL RBC (4.30-5.90) m/uL Hgb (13.0-17.5) gm/dL Hct (39.0-53.0) % MCHC (31.0-37.0) g/dL RDW (11.5-15.5) % Neutrophils # (1.3-7.7) k/uL Eosinophils # (0-0.7) k/uL Potassium (3.5-5.1) mmol/L Chloride (98-107) mmol/L BUN (9-20) mg/dL Creatinine 1.48 H (0.66-1.25) mg/dL Glucose (74-99) mg/dL POC Glucose (mg/dL) (70-110) mg/dL Calcium (8.4-10.2) mg/dL AST (17-59) U/L Total Protein (6.3-8.2) g/dL Albumin (3.5-5.0) g/dL Vancomycin Trough 31.3 H* ug/mL Crossmatch See Detail 06/20/22 06/20/22 06/20/22 Range/Units 10:03 11:41 16:38 WBC 12.6 H (3.8-10.6) k/uL RBC 2.71 L (4.30-5.90) m/uL Hgb 7.1 L (13.0-17.5) gm/dL Hct 23.8 L (39.0-53.0) % MCHC 29.9 L (31.0-37.0) g/dL RDW 18.2 H (11.5-15.5) % Neutrophils # 8.7 H (1.3-7.7) k/uL Eosinophils # 0.8 H (0-0.7) k/uL Potassium (3.5-5.1) mmol/L Chloride (98-107) mmol/L BUN (9-20) mg/dL Creatinine (0.66-1.25) mg/dL Glucose (74-99) mg/dL POC Glucose (mg/dL) 177 H 157 H (70-110) mg/dL Calcium (8.4-10.2) mg/dL AST (17-59) U/L Total Protein (6.3-8.2) g/dL Albumin (3.5-5.0) g/dL Vancomycin Trough ug/mL Crossmatch 06/20/22 06/21/22 06/21/22 Range/Units 20:14 05:58 08:02 WBC 13.8 H (3.8-10.6) k/uL RBC 1.90 L (4.30-5.90) m/uL Hgb 5.1 L* D (13.0-17.5) gm/dL Hct 16.8 L* (39.0-53.0) % MCHC 30.2 L (31.0-37.0) g/dL RDW 19.7 H (11.5-15.5) % Neutrophils # 9.9 H (1.3-7.7) k/uL Eosinophils # 0.9 H (0-0.7) k/uL Potassium (3.5-5.1) mmol/L Chloride (98-107) mmol/L BUN (9-20) mg/dL Creatinine (0.66-1.25) mg/dL Glucose (74-99) mg/dL POC Glucose (mg/dL) 177 H 193 H (70-110) mg/dL Calcium (8.4-10.2) mg/dL AST (17-59) U/L Total Protein (6.3-8.2) g/dL Albumin (3.5-5.0) g/dL Vancomycin Trough ug/mL Crossmatch 06/21/22 Range/Units 08:02 WBC (3.8-10.6) k/uL RBC (4.30-5.90) m/uL Hgb (13.0-17.5) gm/dL Hct (39.0-53.0) % MCHC (31.0-37.0) g/dL RDW (11.5-15.5) % Neutrophils # (1.3-7.7) k/uL Eosinophils # (0-0.7) k/uL Potassium 5.3 H (3.5-5.1) mmol/L Chloride 112 H (98-107) mmol/L BUN 39 H (9-20) mg/dL Creatinine 1.53 H (0.66-1.25) mg/dL Glucose 155 H (74-99) mg/dL POC Glucose (mg/dL) (70-110) mg/dL Calcium 8.1 L (8.4-10.2) mg/dL AST 15 L (17-59) U/L Total Protein 5.4 L (6.3-8.2) g/dL Albumin 2.3 L (3.5-5.0) g/dL Vancomycin Trough ug/mL Crossmatch Microbiology - Last 24 Hours (Table) 06/17/22 17:40 Blood Culture Gram Stain - Preliminary Blood Blood Culture - Preliminary Presumptive MRSA Strep agalactiae - (group b) Coagulase Negative Staph 06/17/22 17:40 Gram Stain - Final Leg - Left Wound Culture - Final Morganella morganii Methicillin resist S. aureus Assessment and Plan Assessment: 1. Lower extremity cellulitis with elevated white blood cell count 2. Noncompliance with medication patient reports he has not been taking his meds in over here and has not seen his PCP in over 2 years 3. History of CVA 4. Morbid obesity 5. History of essential hypertension 6. Diabetes mellitus type 2. Hemoglobin A1c 6.8. Patient has not taken medication in over a year 7. Chronic venous stasis 8. Patient previously on levodopa due to tremors post CVA discussed case with neurologist patient does not require any further medication 9. Anemia with positive occult blood. Plans for EGD on Tuesday per surgical services 10. Hyperkalemia potassium 5.6 11. Acute kidney injury creatinine 1.3 bun 52 on presentation, improving gradually DVT prophylaxis SCDs due to anemia Infectious disease consulted for lower extremity cellulitis patient maintained on IV antibiotics Per neurology patient never had the diagnosis of Parkinson's disease does not require any further medication. Recommendations of initiation of aspirin once surgical clearance surgical services also consulted for anemia Patient received 1 unit PRBCs on 06/19/2022 2 units of PRBCs ordered for 06/21/2022 EGD scheduled for 06/21/2022 Repeat labs ordered blood and wound culture ordered
--- NOTE | 2022-06-21 10:00 | P.PCN ---
Date of Procedure: 06/21/22 Description of Procedure: PREOPERATIVE DIAGNOSIS: Acute gastrointestinal bleeding Melena Status post blood transfusions Morbid obesity excess calories POSTOPERATIVE DIAGNOSIS: Acute gastrointestinal bleeding Melena Status post blood transfusions Morbid obesity excess calories Moderate retained gastric food OPERATION: Esophagogastroduodenoscopy SURGEON: Ludivina Godoy MD ANESTHESIA: MAC. INDICATIONS: The patient is a 56-year-old male who presents with gastrointestinal bleeding. Benefits and risks of the procedure were described. Informed consent was obtained. DESCRIPTION: The patient was brought into the endoscopy suite and laid in the left lateral decubitus position. An Olympus gastroscope was passed along the posterior oropharynx down to the distal esophagus where the squamocolumnar junction was encountered at 40 cm from the incisors. The stomach was entered and no bile reflux was found. Additional findings are listed below. Retroflexion of the scope demonstrated moderate retained food with blood and unsuccessful assessment of the valve. The pylorus was secured by moderate food preventing entry into the duodenum for assessment of acute GI bleed. The squamocolumnar junction demonstrated LA grade B erosive esophagitis. The stomach was desufflated. The patient tolerated the procedure well. FINDINGS: Squamocolumnar junction 40 cm from the incisors. Diaphragmatic hiatus at 40 cm. Hill grade -- lower esophageal valve. Moderate retained food with blood, unclear to assess acute bleeding No esophageal ulcers with bleeding Unable to intubate duodenum due to moderate retained food RECOMMENDATIONS: 1. GI consulted for intervention for acute upper GI bleed which may need clips 2. Stat tagged RBC scan for acute GI bleed and location of bleeding 3. Will need upper and lower endoscopy for source of bleed 4. Moderate retained food in stomach. 5. Clear liquid diet only
[2022-06-21] MEDS: ONDANSETRON 4 MG/2 ML VIAL IVP PRN (10:54)
--- NOTE | 2022-06-21 12:15 | CDI ---
Documentation Clarification Form Date: 06/21/2022 From: Ariadna Zuniga Phone: [phone] Admit Date: 06/17/2022 8:24:00 PM Patient Name: Jamarcus Sanderson Visit Number: [id number] Discharge Date: ATTENTION: The Clinical Documentation Specialists (CDI) and [facility] Coding Staff appreciate your assistance in clarifying documentation. Please respond to the clarification below the line at the bottom and electronically sign. The CDI & [facility] Coding staff will review the response and follow-up if needed. Please note: Queries are made part of the Legal Health Record. If you have any questions, please contact the author of this message via ITS. Dr. Cecilia Tomlinson There is documentation of bacteremia in ID consult on 06/18 and ID PN on 06/19- 06/20. Bacteremia is considered a lab finding. Additional clarification regarding bacteremia is requested. Patient history/risk factors: Pt has chronic lower extremity wounds, has been noncompliant with medication and treatment since Covid started Clinical Indicators: WBC: 06/17 18.7, 06/20 17.1, 06/21 13.8 Blood Culture 06/17: Staph aureusm Staph epidermidis, Strep agalactiae Wound Culture 06/17 L leg: Morganella morganii, MRSA Labs: 06/17 LA 3.5 ID Consult: patient with gram-positive bacteremia likely related to bilateral extremity wound and cellulitis. Treatment: Vanco IV, Cefepime IV, local wound care, Please provide additional clarification regarding the etiology/cause and/or clinical significance of the bacteremia: [ ] Bacteremia is related to sepsis [ x ] Bacteremia is due to local wound cellulitis, no sepsis present [ ] Bacteremia is not clinically significant [ ] Other, please specify [ ] Unable to determine MTDD
[2022-06-21 12:18] LABS: Glucose,Whole Blood 185 mg/dL (70-110)
[2022-06-21] MEDS ORDERED: DESMOPRESSIN ACETATE 36 MCG in SODIUM CHLORIDE 0.9% 50 ML IVPB ONE (12:32)
[2022-06-21] MEDS ORDERED: SODIUM ZIRCONIUM CYCLOSILICATE 10 GM PACKET PO ONE (12:35)
--- NOTE | 2022-06-21 12:36 | P.NPCON ---
History of Present Illness - Reason for Consult acute renal failure, chronic renal failure - History of Present Illness Reason for consultation: Acute kidney injury on chronic kidney disease History of present illness: Patient is a 56-year-old male seen in renal consultation for acute kidney injury on chronic kidney disease. Patient has chronic kidney disease stage IIIA with baseline creatinine 1.1-1.3. Etiology is nephrosclerosis and diabetic kidney disease. Creatinine today is up to 1.53. Patient states he hasn't taken any medications in about a year. Patient states he's mostly homebound. Patient presented to the hospital due to weakness. Patient states he almost collapsed in the bathroom and had to ask for help and be brought to the hospital. He is currently receiving IV fluids. Denies chest pain or shortness of breath. He is on a nasal cannula at this time. Patient states he developed black colored bowel movements this admission. He had a large black-colored bowel movement th is morning. Patient has already received blood and is scheduled received 2 more units today his hemoglobin is 5.1. He denies use of nonsteroidals. Denies vomiting or diarrhea. He does have history of diabetes and is supposed to be on medication but again hasn't taken them in quite some time. He's being treated for lower extremity wounds and is also noted to be bacteremic with blood culture positive for MRSA and wound cultures positive for MRSA as well as Morganella. Vital signs are stable. General: No acute distress. HEENT: Head exam is unremarkable. LUNGS: No audible rhonchi or wheezes. HEART: Rate and Rhythm are regular. ABDOMEN: Obese. Nontender. EXTREMITITES: Lower extremities wrapped. No drainage. Past Medical History Past Medical History: Blood Disorder, Coronary Artery Disease (CAD), Heart Failure, CVA/TIA, Diabetes Mellitus, Hyperlipidemia, Hypertension, Renal Disease, Sleep Apnea/CPAP/BIPAP Additional Past Medical History / Comment(s): Chronic back pain; USES C-PAP; kidney stones, RENAL FAILURE; NEUROPATHY. WEARS COPPER FITBOOTS D/T PVD. POSS CVA 10/2013, PVD History of Any Multi-Drug Resistant Organisms: MRSA, VRE Date of last positivie culture/infection: 05/09/19-MRSA; 07/05/08-VRE MDRO Source:: Right Leg-MRSA; VRE Leg wound Additional Past Surgical History / Comment(s): kidney stones removed, HX D RAINAGE TUBE, CYSTOSCOPY; DEBRIDMENTS TO LEGS X6 IN 2009 Past Anesthesia/Blood Transfusion Reactions: No Reported Reaction Past Psychological History: Anxiety, Depression Past Alcohol Use History: None Reported Past Drug Use History: None Reported - Past Family History Mother Family Medical History: Cancer Father Family Medical History: Hypertension Medications and Allergies Home Medications Medication Instructions Recorded Confirmed Type No Known Home Medications 06/17/22 06/17/22 History Allergies Allergy/AdvReac Type Severity Reaction Status Date / Time Penicillins Allergy Unknown Unknown Verified 06/09/18 08:22 Childhood adhesive Allergy Rash/Hives Verified 06/09/18 08:22 peanut AdvReac Nausea & Verified 06/09/18 08:22 Vomiting Physical Exam Vitals: Vital Signs Temp Pulse Resp BP Pulse Ox FiO2 06/21/22 12:23 74 18 06/21/22 12:00 98.1 F 74 18 108/61 95 06/21/22 08:42 98 21 06/21/22 08:00 98.1 F 86 19 110/51 98 06/21/22 07:58 77 19 06/21/22 04:00 98.1 F 77 19 107/53 99 06/21/22 00:00 97.9 F 81 18 132/56 98 06/20/22 20:00 98.0 F 84 19 101/46 100 06/20/22 16:00 83 18 140/54 99 06/20/22 15:14 77 18 Intake and Output 06/20/22 06/21/22 06/21/22 22:59 06:59 14:59 Intake Total 200 Output Total 375 1750 Balance -375 -1750 200 Intake: IV 200 Output: Urine 375 1750 Other: Voiding Method Urinal Urinal Results - Lab Results Most recent lab results Calcium 8.1 mg/dL (8.4-10.2) L 06/21/22 08:02 Magnesium 1.6 mg/dL (1.6-2.3) 06/17/22 17:40 06/21/22 08:02 06/21/22 08:02 Assessment and Plan Plan: Assessment: 1. Acute kidney injury secondary to ATN secondary to acute blood loss anemia and sepsis. Vanco level 31.3 dated 04/22/2022. Creatinine 1.53 today. 2. Chronic kidney disease stage IIIa with baseline creatinine 1.1-1.3 secondary to diabetic kidney disease and nephrosclerosis. Trace proteinuria on UA. No hydronephrosis noted on CAT scan. 3. Acute GI bleed status post EGD with further intervention required by GI. Will be receiving more blood today. 4. Hyperkalemia secondary to acute kidney injury and GI bleed. Stable. 5. Diabetes mellitus. 6. MRSA bacteremia and lower extremity wounds on antibiotics. ID following. Plan: Decrease rate of normal saline to 75 mL an hour. DDAVP IV 1 today. Lokelma 10 g once today. Avoid nephrotoxins. Monitor vancomycin levels - dose to be adjusted for renal function. Monitor hemoglobin and transfuse as needed. Continue to monitor renal function and urine output. Thank you for the consultation. I'll continue to follow the patient with you during his hospital stay.
--- NOTE | 2022-06-21 12:55 | P.CONS ---
History of Present Illness - Reason for Consult Consult date: 06/21/22 Acute GI bleed Requesting physician: Ludivina Godoy - Chief Complaint Lower extremity cellulitis - History of Present Illness This is a pleasant 56-year-old male who presented to the emergency department several days ago for lower extremity swelling and redness as well as dizziness. He was admitted for bilateral lower extremity cellulitis and started on antibiotics. He has a past medical history including morbid obesity, coronary artery disease, heart failure, CVA, diabetes mellitus, hyperlipidemia, hypertension, chronic renal disease and sleep apnea. During his hospitalization patient was noted to be anemic with a drop in his hemoglobin. Gen. surgery was consulted for anemia and suspected GI bleed. Patient denies any regular use of NSAIDs, no anticoagulation, states he has not had any previous history of GI bleed or anemia. He has not required blood transfusions in the past. Denies any history of peptic ulcer disease, states that he had an EGD maybe around 2013 or . No previous colonoscopy. Dr. Godoy was following patient and he underwent EGD this morning with findings of hiatal hernia, moderate retained food with blood, unclear assess acute bleeding. No esophageal ulcers with bleeding. Unable to intubate due to addendum due to moderate retained food. Tagged RBC has been ordered. Patient had a drop in his hemoglobin rate of 5.1 and was ordered 2 units of blood. He underwent a CT of the abdomen and pelvis without contrast showed no acute abdominal/pelvic process. He states he is unsure if he's had any blood in his stool or black stool, states that his nephew told him that he had dark stool on the day he came to the [facility]. He does not state that he is having black stool since admission to the hospital that he had 2 bowel movements today. The patient had denied any abdominal pain nausea or vomiting. He states he does have some abdominal pain today as well as nausea and vomiting following his EGD. Review of Systems REVIEW OF SYSTEMS: CARDIOPULMONARY: No chest pain or shortness of breath. Gastrointestinal: Abdominal pain. Nausea with vomiting today. No hematemesis, coffee-ground emesis. No rectal bleeding, or melena. GENITOURINARY: No dysuria or hematuria. MUSCULOSKELETAL: Reports normal range of motion. SKIN: No rashes. No jaundice. ENDOCRINE: No chills, fevers. No excessive weight gain or loss. No polydipsia or polyuria. PSYCHIATRIC: Unremarkable. NEUROLOGY: No change in mental status. Dizziness and fatigue. ENT: Vision unremarkable. CONSTITUTIONAL: No recent weight loss. No fever, chills, night sweats. Past Medical History Past Medical History: Blood Disorder, Coronary Artery Disease (CAD), Heart Failure, CVA/TIA, Diabetes Mellitus, Hyperlipidemia, Hypertension, Renal Disease, Sleep Apnea/CPAP/BIPAP Additional Past Medical History / Comment(s): Chronic back pain; USES C-PAP; kidney stones, RENAL FAILURE; NEUROPATHY. WEARS COPPER FITBOOTS D/T PVD. 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 MDRO Source:: Right Leg-MRSA; VRE Leg wound Additional Past Surgical History / Comment(s): kidney stones removed, HX DRAINAGE TUBE, CYSTOSCOPY; DEBRIDMENTS TO LEGS X6 IN 2008 Past Anesthesia/Blood Transfusion Reactions: No Reported Reaction Past Psychological History: Anxiety, Depression Past Alcohol Use History: None Reported Past Drug Use History: None Reported - Past Family History Mother Family Medical History: Cancer Father Family Medical History: Hypertension Medications and Allergies Home Medications Medication Instructions Recorded Confirmed Type No Known Home Medications 06/17/22 06/17/22 History Allergies Allergy/AdvReac Type Severity Reaction Status Date / Time Penicillins Allergy Unknown Unknown Verified 06/09/18 08:22 Childhood adhesive Allergy Rash/Hives Verified 06/09/18 08:22 peanut AdvReac Nausea & Verified 06/09/18 08:22 Vomiting Physical Exam Vitals: Vital Signs Temp Pulse Resp BP Pulse Ox FiO2 06/21/22 08:42 98 21 06/21/22 08:00 98.1 F 86 19 110/51 98 06/21/22 07:58 77 19 06/21/22 04:00 98.1 F 77 19 107/53 99 06/21/22 00:00 97.9 F 81 18 132/56 98 06/20/22 20:00 98.0 F 84 19 101/46 100 06/20/22 16:00 83 18 140/54 99 06/20/22 15:14 77 18 06/20/22 12:12 77 18 119/65 98 Intake and Output 06/20/22 06/21/22 06/21/22 22:59 06:59 14:59 Intake Total 200 Output Total 375 1750 Balance -375 -1750 200 Intake: IV 200 Output: Urine 375 1750 Other: Voiding Method Urinal Urinal General appearance: The patient is alert, oriented, appears in no acute distress. Morbidly obese. HET: Head is normocephalic and atraumatic. Conjunctiva pink. Sclera anicteric. Neck: Supple without lymphadenopathy. Trachea midline. Heart: S1 S2. Regular rate and rhythm. Lungs: Clear to auscultation. Abdomen: Soft, nontender, nondistended with bowel sounds. No guarding or rigidity. Skin: No rashes. No jaundice. Extremities: Bilateral lower extremity swelling with Bharathi wrap. Neurological: No focal deficits. Alert and oriented x3. Results CBC & Chem 7: 06/21/22 08:02 06/21/22 08:02 Labs: Abnormal Lab Results - Last 24 Hours (Table) 06/18/22 06/20/22 06/20/22 Range/Units 13:26 10:03 10:03 WBC (3.8-10.6) k/uL RBC (4.30-5.90) m/uL Hgb (13.0-17.5) gm/dL Hct (39.0-53.0) % MCHC (31.0-37.0) g/dL RDW (11.5-15.5) % Neutrophils # (1.3-7.7) k/uL Eosinophils # (0-0.7) k/uL Potassium (3.5-5.1) mmol/L Chloride (98-107) mmol/L BUN (9-20) mg/dL Creatinine 1.48 H (0.66-1.25) mg/dL Glucose (74-99) mg/dL POC Glucose (mg/dL) (70-110) mg/dL Calcium (8.4-10.2) mg/dL AST (17-59) U/L Total Protein (6.3-8.2) g/dL Albumin (3.5-5.0) g/dL Vancomycin Trough 31.3 H* ug/mL Crossmatch See Detail 06/20/22 06/20/22 06/20/22 Range/Units 10:03 11:41 16:38 WBC 12.6 H (3.8-10.6) k/uL RBC 2.71 L (4.30-5.90) m/uL Hgb 7.1 L (13.0-17.5) gm/dL Hct 23.8 L (39.0-53.0) % MCHC 29.9 L (31.0-37.0) g/dL RDW 18.2 H (11.5-15.5) % Neutrophils # 8.7 H (1.3-7.7) k/uL Eosinophils # 0.8 H (0-0.7) k/uL Potassium (3.5-5.1) mmol/L Chloride (98-107) mmol/L BUN (9-20) mg/dL Creatinine (0.66-1.25) mg/dL Glucose (74-99) mg/dL POC Glucose (mg/dL) 177 H 157 H (70-110) mg/dL Calcium (8.4-10.2) mg/dL AST (17-59) U/L Total Protein (6.3-8.2) g/dL Albumin (3.5-5.0) g/dL Vancomycin Trough ug/mL Crossmatch 06/20/22 06/21/22 06/21/22 Range/Units 20:14 05:58 08:02 WBC 13.8 H (3.8-10.6) k/uL RBC 1.90 L (4.30-5.90) m/uL Hgb 5.1 L* D (13.0-17.5) gm/dL Hct 16.8 L* (39.0-53.0) % MCHC 30.2 L (31.0-37.0) g/dL RDW 19.7 H (11.5-15.5) % Neutrophils # 9.9 H (1.3-7.7) k/uL Eosinophils # 0.9 H (0-0.7) k/uL Potassium (3.5-5.1) mmol/L Chloride (98-107) mmol/L BUN (9-20) mg/dL Creatinine (0.66-1.25) mg/dL Glucose (74-99) mg/dL POC Glucose (mg/dL) 177 H 193 H (70-110) mg/dL Calcium (8.4-10.2) mg/dL AST (17-59) U/L Total Protein (6.3-8.2) g/dL Albumin (3.5-5.0) g/dL Vancomycin Trough ug/mL Crossmatch 06/21/22 Range/Units 08:02 WBC (3.8-10.6) k/uL RBC (4.30-5.90) m/uL Hgb (13.0-17.5) gm/dL Hct (39.0-53.0) % MCHC (31.0-37.0) g/dL RDW (11.5-15.5) % Neutrophils # (1.3-7.7) k/uL Eosinophils # (0-0.7) k/uL Potassium 5.3 H (3.5-5.1) mmol/L Chloride 112 H (98-107) mmol/L BUN 39 H (9-20) mg/dL Creatinine 1.53 H (0.66-1.25) mg/dL Glucose 155 H (74-99) mg/dL POC Glucose (mg/dL) (70-110) mg/dL Calcium 8.1 L (8.4-10.2) mg/dL AST 15 L (17-59) U/L Total Protein 5.4 L (6.3-8.2) g/dL Albumin 2.3 L (3.5-5.0) g/dL Vancomycin Trough ug/mL Crossmatch Microbiology - Last 24 Hours (Table) 06/17/22 17:40 Blood Culture Gram Stain - Preliminary Blood Blood Culture - Preliminary Presumptive MRSA Strep agalactiae - (group b) Coagulase Negative Staph 06/17/22 17:40 Gram Stain - Final Leg - Left Wound Culture - Final Morganella morganii Methicillin resist S. aureus Assessment and Plan (1) GI bleed Narrative/Plan: 56-year-old male with multiple comorbidities presented to the emergency department 4 days ago with complaints of lower extremity swelling and redness, and dizziness was admitted for cellulitis and treated. He was noted to be anemic with hemoglobin of 7.6 on admission. No previous history of GI bleed, no anticoagulation or regular NSAID use. Patient denied any knowledge of any blood in his stool or black stool however states his nephew said his stool was dark when the ambulance came that day. No previous history of GI bleed. He's had a continuous trend down and his hemoglobin and has had 3 units of blood on this admission with another 2 units ordered today. He underwent upper endoscopy with general surgery today with findings of retained food and blood noted however EGD could not be completed due to the retained food. It was reported no esophageal ulcers with bleeding noted. Unable to intubate leg due to moderate retained food.. CAD RBC scan ordered currently pending. Unclear etiology at this time of GI bleed. We'll need to proceed with repeat EGD, colonoscopy and consider small bowel capsule endoscopy if needed. Current Visit: Yes Status: Acute Code(s): K92.2 - GASTROINTESTINAL HEMORRHAGE, UNSPECIFIED SNOMED Code(s): 52355404 (2) Anemia Narrative/Plan: Normocytic normochromic anemia Current Visit: Yes Status: Acute Code(s): D64.9 - ANEMIA, UNSPECIFIED SNOMED Code(s): 197554127 (3) Bilateral lower leg cellulitis Current Visit: Yes Status: Acute Code(s): L03.116 - CELLULITIS OF LEFT LOWER LIMB; L03.115 - CELLULITIS OF RIGHT LOWER LIMB SNOMED Code(s): 283369225 (4) Leukocytosis Current Visit: Yes Status: Acute Code(s): D72.829 - ELEVATED WHITE BLOOD CELL COUNT, UNSPECIFIED SNOMED Code(s): 580590862 (5) Morbid obesity with BMI of 60.0-69.9, adult Current Visit: No Status: Acute Code(s): E66.01 - MORBID (SEVERE) OBESITY DUE TO EXCESS CALORIES SNOMED Code(s): 028396548 (6) Acute on chronic kidney failure Current Visit: No Status: Acute Code(s): N17.9 - ACUTE KIDNEY FAILURE, UNSPECIFIED SNOMED Code(s): 348289525 (7) Gastroparesis Narrative/Plan: Patient fell with retained food in stomach on EGD. Likely diabetic gastroparesis. Current Visit: Yes Status: Acute Code(s): K31.84 - GASTROPARESIS SNOMED Code(s): 195925013 Plan: 1. Continue symptomatic and supportive care 2. Daily CBC transfuse for hemoglobin less than 7 3. Agree with blood transfusion 4. Clear liquid diet, avoid red-colored dye. Nothing by mouth after midnight 5. Await tagged RBC results, ordered by general surgery 6. Protonix 40 mg twice a day for GI prophylaxis 7. Avoid NSAIDs or anticoagulation 8. Antiemetics as needed 9. Patient is scheduled for colonoscopy with general surgeon Dr. Godoy tomorrow 10. Possible EGD tomorrow Thank you for this consultation, we will continue to follow. Dr. Eric Serrato I agree with the dictator's note, documented as a scribe by Earline Garcia.
[2022-06-21] MEDS ORDERED: VANCOMYCIN TROUGH DUE 1 EACH MISC MISCELLANE ONE (17:00)
[2022-06-21 17:22] LABS: Glucose,Whole Blood 159 mg/dL (70-110)
--- NOTE | 2022-06-21 17:42 | P.PN ---
Subjective Progress Note Date: 06/21/22 This is a 56-year-old male patient who presented to the ER with concerns of weakness in lower extremity wounds. Patient reports he has had increasing weakness prompting him to call EMS for further assistance Patient has not been into see his primary care doctor in almost years has not taken his medications in over a year. Patient reports that he did not have easy accessibility to rides and getting out of the house. Patient reports he has been dealing with lower extremity wounds that he has been treating at home without improvement. Patient has a past medical history of hypertension, coronary artery disease, CVA, chronic renal disease. Chest x-ray completed showing no definitive acute radiographic process. Troponin negative. WBC 18.7. Hemoglobin 7.6.. At this time patient has been started on IV antibiotics blood cultures ordered. Wound cultures ordered. Infectious disease and wound care service is consulted. Will reorder home medication according to most recent PCP visit. We'll also consult PT OT and social work services for discharge planning and assessment of home situation On 06/19/2022 patient was seen and examined on the medical he is alert and oriented 3 in no apparent distress he is complaining of bilateral lower extremity pain at the sites of cellulitis and ulcers, he is also complaining of back pain and feeling uncomfortable in bed, otherwise he denies any complaints, there is no fever or chills no headache or dizziness no chest pain no shortness of breath no cough, no nausea or vomiting no abdominal pain no diarrhea and no urinary symptoms, hemoglobin continues to drop, patient received 1 unit of red blood cell transfusion yesterday, however today his hemoglobin has dropped to 5.8, a second unit of red blood cell transfusion was ordered this morning, will continue to monitor hemoglobin closely. Stools for Hemoccult was sent results are still pending. White blood count is improving down to 13.5 today, patient remains on IV antibiotics for bilateral lower extremity cellulitis. IV Protonix was added to medication regimen, computed tomography scan of the abdomen and pelvis was ordered by surgery for evaluation, will continue to follow closely. Prognosis is guarded. On 06/20/2022 patient is currently resting comfortably in bed alert and oriented 3. Per nursing staff patient had one dark stool last night awaiting hemoglobin level to assess if patient needs blood transfusion. Plans for EGD tomorrow per surgical services did also discuss case with neurologist Dr. Simpson patient never had the diagnosis of Parkinson's does not require any initiation of Parkinson's medication. Patient was on levodopa due to tremors post CVA. Patient remains on Maxipime and vancomycin. At this time patient denies chest pain or shortness breath. Patient denies nausea vomiting or diarrhea. Patient denies any urinary burning or frequency. CT of abdomen and pelvis showing no acute abdominal pelvic process On 06/21/2022 patient is alert and oriented 3. Patient currently getting transferred for EGD. Hemoglobin 5.1. 2 units of PRBCs have been ordered. This was discussed with nurse. Current vital signs temp 98.1, pulse rate 86, respiratory rate 19, blood pressure 110/51 with a pulse ox 98% on 2 L. Patient remains on IV Maxipime and vancomycin. Patient underwent EGD today with Dr. Godoy, patient had retained food in the stomach which limited the evaluation however there was no clear evidence of bleeding on EGD, intact red blood cell nuclear scan was ordered and gastroenterology consultation was requested hemoglobin today is down to 5.12 units of red blood cell transfusion were ordered, hematology consultation also requested , will check vitamin B12 and folate level , will continue to monitor closely Objective - Vital Signs Vital signs: Vital Signs Temp 98 F 06/21/22 13:12 Pulse 67 06/21/22 13:12 Resp 18 06/21/22 13:12 BP 118/77 06/21/22 13:12 Pulse Ox 96 06/21/22 13:12 FiO2 21 06/21/22 08:42 Intake & Output 06/20/22 06/21/22 06/21/22 18:59 06:59 18:59 Intake Total 1376 1280 Output Total 1100 2125 Balance 276 -2125 1280 Intake: IV 200 Intake, IV Titration 900 Amount Cefepime 2 gm In Sodium 100 Chloride 0.9% 100 ml @ 25 mls/hr IVPB Q8HR GERMAINE Rx# :[id number] Sodium Chloride 0.9% 1, 300 000 ml @ 75 mls/hr IV . [id number] GERMAINE Rx#:[id number] Vancomycin 2,500 mg In 500 Sodium Chloride 0.9% 500 ml 500 ml @ 167 mls/hr IVPB Q16H GERMAINE Rx#: [id number] Oral 476 1080 Blood Product 0 Unit 0 Output: Urine 1100 2125 Other: Voiding Method Urinal Urinal # Voids 3 # Bowel Movements 2 - Exam In general patient is alert and oriented 3 Head normocephalic and atraumatic Neck supple no JVD no goiter Lungs clear to auscultation bilaterally no wheezing or crackles Heart regular rate and rhythm S1-S2, no rub or gallop Abdomen is soft nontender nondistended positive bowel sounds no hepatosplenomegaly Extremities bilateral lower extremity wounds and cellulitis. Serosanguineous drainage noted Neuro no gross focal deficit - Labs CBC & Chem 7: 06/21/22 08:02 06/21/22 08:02 Labs: Abnormal Lab Results - Last 24 Hours (Table) 06/18/22 06/20/22 06/21/22 Range/Units 13:26 20:14 05:58 WBC (3.8-10.6) k/uL RBC (4.30-5.90) m/uL Hgb (13.0-17.5) gm/dL Hct (39.0-53.0) % MCHC (31.0-37.0) g/dL RDW (11.5-15.5) % Neutrophils # (1.3-7.7) k/uL Eosinophils # (0-0.7) k/uL Potassium (3.5-5.1) mmol/L Chloride (98-107) mmol/L BUN (9-20) mg/dL Creatinine (0.66-1.25) mg/dL Glucose (74-99) mg/dL POC Glucose (mg/dL) 177 H 193 H (70-110) mg/dL Calcium (8.4-10.2) mg/dL AST (17-59) U/L Total Protein (6.3-8.2) g/dL Albumin (3.5-5.0) g/dL Crossmatch See Detail 06/21/22 06/21/22 06/21/22 Range/Units 08:02 08:02 12:10 WBC 13.8 H (3.8-10.6) k/uL RBC 1.90 L (4.30-5.90) m/uL Hgb 5.1 L* D (13.0-17.5) gm/dL Hct 16.8 L* (39.0-53.0) % MCHC 30.2 L (31.0-37.0) g/dL RDW 19.7 H (11.5-15.5) % Neutrophils # 9.9 H (1.3-7.7) k/uL Eosinophils # 0.9 H (0-0.7) k/uL Potassium 5.3 H (3.5-5.1) mmol/L Chloride 112 H (98-107) mmol/L BUN 39 H (9-20) mg/dL Creatinine 1.53 H (0.66-1.25) mg/dL Glucose 155 H (74-99) mg/dL POC Glucose (mg/dL) 185 H (70-110) mg/dL Calcium 8.1 L (8.4-10.2) mg/dL AST 15 L (17-59) U/L Total Protein 5.4 L (6.3-8.2) g/dL Albumin 2.3 L (3.5-5.0) g/dL Crossmatch 06/21/22 Range/Units 17:21 WBC (3.8-10.6) k/uL RBC (4.30-5.90) m/uL Hgb (13.0-17.5) gm/dL Hct (39.0-53.0) % MCHC (31.0-37.0) g/dL RDW (11.5-15.5) % Neutrophils # (1.3-7.7) k/uL Eosinophils # (0-0.7) k/uL Potassium (3.5-5.1) mmol/L Chloride (98-107) mmol/L BUN (9-20) mg/dL Creatinine (0.66-1.25) mg/dL Glucose (74-99) mg/dL POC Glucose (mg/dL) 159 H (70-110) mg/dL Calcium (8.4-10.2) mg/dL AST (17-59) U/L Total Protein (6.3-8.2) g/dL Albumin (3.5-5.0) g/dL Crossmatch Microbiology - Last 24 Hours (Table) 06/17/22 17:40 Blood Culture Gram Stain - Preliminary Blood Blood Culture - Preliminary Methicillin resist S. aureus Strep agalactiae - (group b) Coagulase Negative Staph Assessment and Plan Plan: 1. Lower extremity cellulitis with elevated white blood cell count 2. Noncompliance with medication patient reports he has not been taking his meds in over here and has not seen his PCP in over 2 years 3. History of CVA 4. Morbid obesity 5. History of essential hypertension 6. Diabetes mellitus type 2. Hemoglobin A1c 6.8. Patient has not taken medication in over a year 7. Chronic venous stasis 8. Patient previously on levodopa due to tremors post CVA discussed case with neurologist patient does not require any further medication 9. Anemia with positive occult blood. Plans for EGD on Tuesday per surgical services 10. Hyperkalemia potassium 5.6 11. Acute kidney injury creatinine 1.3 bun 52 on presentation, improving gradually DVT prophylaxis SCDs due to anemia Infectious disease consulted for lower extremity cellulitis patient maintained on IV antibiotics Per neurology patient never had the diagnosis of Parkinson's disease does not require any further medication. Recommendations of initiation of aspirin once surgical clearance surgical services also consulted for anemia Patient received 1 unit PRBCs on 06/19/2022 2 units of PRBCs ordered for 06/21/2022 EGD scheduled for 06/21/2022 Repeat labs ordered blood and wound culture ordered
--- NOTE | 2022-06-21 17:57 | NM ---
EXAMINATION TYPE: NM GI bleeding DATE OF EXAM: 06/21/2022 HISTORY: Acute anemia abdominal pain with diarrhea and rectal bleeding. COMPARISON: NONE Following administration of 3 ml PYP 26.9 mCi Tc 99m Sodium Pertechnetate. Immediate images post inje ction. FINDINGS: Normal tracer activity is seen in the blood pool of the abdominal aorta, common iliac arteries, femor al arteries, liver, and spleen on all of the interval images. Later images show accumulation of trace r in the urinary bladder, which is consistent with excreted tracer. On cine sequences a left upper quadrant abnormal focus of radiotracer is evident. This changes during the examination with movement. This has appearance of an upper GI bleed likely within the proximal t o mid jejunal region. This does not appear to follow the course of the descending colon. IMPRESSION: 1. Findings suggestive for left upper quadrant proximal to mid jejunal GI bleed.
[2022-06-21] MEDS ORDERED: VANCOMYCIN IV PER PHARMACY 1 EACH MISC MISCELLANE PRN (19:34)
[2022-06-21 20:23] LABS: Glucose,Whole Blood 206 mg/dL (70-110)
--- NOTE | 2022-06-21 21:33 | P.PN ---
Subjective Progress Note Date: 06/21/22 Principal diagnosis: Bilateral lower extremity ulcers cellulitis and bacteremia Patient is a 56-year male with a past medical history significant for CVA TIA coronary disease heart failure patient did have a history of bilateral lower extremity venous stasis ulcer, presented to hospital with weakness and syncopal episode patient did have worsening of bilateral lower extremity wound and cellulitis and did have evidence of bacteremia. On today's evaluation that is 06/21/2022, the patient continues to be afebrile, the patient is breathing comfortably currently on 2L nasal cannula oxygen, the patient denies chest pain or shortness of breath, the patient did have oc casional cough has been complaining of some nausea but no vomiting and no diarrhea has been reported no pain to the lower extremity Objective - Vital Signs Vital signs: Vital Signs Temp 98.1 F 06/21/22 12:00 Pulse 74 06/21/22 12:23 Resp 18 06/21/22 12:23 BP 108/61 06/21/22 12:00 Pulse Ox 95 06/21/22 12:00 FiO2 21 06/21/22 08:42 Intake & Output 06/20/22 06/21/22 06/21/22 18:59 06:59 18:59 Intake Total 1376 1280 Output Total 1100 2125 Balance 276 -2125 1280 Intake: IV 200 Intake, IV Titration 900 Amount Cefepime 2 gm In Sodium 100 Chloride 0.9% 100 ml @ 25 mls/hr IVPB Q8HR GERMAINE Rx# :[id number] Sodium Chloride 0.9% 1, 300 000 ml @ 75 mls/hr IV . [id number] GERMAINE Rx#:[id number] Vancomycin 2,500 mg In 500 Sodium Chloride 0.9% 500 ml 500 ml @ 167 mls/hr IVPB Q16H GERMAINE Rx#: [id number] Oral 476 1080 Blood Product 0 Unit 0 Output: Urine 1100 2125 Other: Voiding Method Urinal Urinal - Exam GENERAL DESCRIPTION: A middle-age male lying in bed in no distress RESPIRATORY SYSTEM: Unlabored breathing , decreased breath sounds at bases HEART: S1 S2 regular rate and rhythm , ABDOMEN: Soft , no tenderness EXTREMITIES: Bilateral lower extremity currently wrapped no drainage on the dressing - Labs CBC & Chem 7: 06/21/22 08:02 06/21/22 08:02 Labs: Abnormal Lab Results - Last 24 Hours (Table) 06/18/22 06/20/22 06/20/22 Range/Units 13:26 16:38 20:14 WBC (3.8-10.6) k/uL RBC (4.30-5.90) m/uL Hgb (13.0-17.5) gm/dL Hct (39.0-53.0) % MCHC (31.0-37.0) g/dL RDW (11.5-15.5) % Neutrophils # (1.3-7.7) k/uL Eosinophils # (0-0.7) k/uL Potassium (3.5-5.1) mmol/L Chloride (98-107) mmol/L BUN (9-20) mg/dL Creatinine (0.66-1.25) mg/dL Glucose (74-99) mg/dL POC Glucose (mg/dL) 157 H 177 H (70-110) mg/dL Calcium (8.4-10.2) mg/dL AST (17-59) U/L Total Protein (6.3-8.2) g/dL Albumin (3.5-5.0) g/dL Crossmatch See Detail 06/21/22 06/21/22 06/21/22 Range/Units 05:58 08:02 08:02 WBC 13.8 H (3.8-10.6) k/uL RBC 1.90 L (4.30-5.90) m/uL Hgb 5.1 L* D (13.0-17.5) gm/dL Hct 16.8 L* (39.0-53.0) % MCHC 30.2 L (31.0-37.0) g/dL RDW 19.7 H (11.5-15.5) % Neutrophils # 9.9 H (1.3-7.7) k/uL Eosinophils # 0.9 H (0-0.7) k/uL Potassium 5.3 H (3.5-5.1) mmol/L Chloride 112 H (98-107) mmol/L BUN 39 H (9-20) mg/dL Creatinine 1.53 H (0.66-1.25) mg/dL Glucose 155 H (74-99) mg/dL POC Glucose (mg/dL) 193 H (70-110) mg/dL Calcium 8.1 L (8.4-10.2) mg/dL AST 15 L (17-59) U/L Total Protein 5.4 L (6.3-8.2) g/dL Albumin 2.3 L (3.5-5.0) g/dL Crossmatch 06/21/22 Range/Units 12:10 WBC (3.8-10.6) k/uL RBC (4.30-5.90) m/uL Hgb (13.0-17.5) gm/dL Hct (39.0-53.0) % MCHC (31.0-37.0) g/dL RDW (11.5-15.5) % Neutrophils # (1.3-7.7) k/uL Eosinophils # (0-0.7) k/uL Potassium (3.5-5.1) mmol/L Chloride (98-107) mmol/L BUN (9-20) mg/dL Creatinine (0.66-1.25) mg/dL Glucose (74-99) mg/dL POC Glucose (mg/dL) 185 H (70-110) mg/dL Calcium (8.4-10.2) mg/dL AST (17-59) U/L Total Protein (6.3-8.2) g/dL Albumin (3.5-5.0) g/dL Crossmatch Microbiology - Last 24 Hours (Table) 06/17/22 17:40 Blood Culture Gram Stain - Preliminary Blood Blood Culture - Preliminary Presumptive MRSA Strep agalactiae - (group b) Coagulase Negative Staph 06/17/22 17:40 Gram Stain - Final Leg - Left Wound Culture - Final Morganella morganii Methicillin resist S. aureus Assessment and Plan (1) Bacteremia Current Visit: Yes Status: Acute Code(s): R78.81 - BACTEREMIA SNOMED Code(s): 7242188 (2) Bilateral lower leg cellulitis Current Visit: Yes Status: Acute Code(s): L03.116 - CELLULITIS OF LEFT LOWER LIMB; L03.115 - CELLULITIS OF RIGHT LOWER LIMB SNOMED Code(s): 468753832 Plan: 1patient with bilateral lower extremity venous stasis ulcer and a component of cellulitis likely from gram-positive skin ani such as strep or Staph aureus 2-patient with MRSA bacteremia likely related to bilateral extremity wound and cellulitis, blood cultures growing MRSA as well as gram-negative 3-patient to continue with the current treatment of vancomycin and cefepime, and blood cultures will be repeated to document clearance of his bacteremia Time with Patient: Less than 30
[2022-06-22] MEDS: HYDROmorphone 0.5 MG/0.5 ML SYRINGE IVP PRN ×2 (03:18→20:51)
[2022-06-22 06:13] LABS: Glucose,Whole Blood 182 mg/dL (70-110)
[2022-06-22] MEDS: INSULIN ASPART (NovoLOG) 100 UNIT/ML VIAL SQ SCH ×4 (06:44→22:34)
[2022-06-22] MEDS: CEFEPIME 2 GM in SODIUM CHLORIDE 0.9% 100 ML IVPB SCH ×2 (07:55→20:51)
[2022-06-22] MEDS: PANTOPRAZOLE 40 MG/10 ML VIAL IVP SCH ×2 (07:55→20:51)
[2022-06-22] MEDS: SODIUM CHLORIDE 0.9% 1,000 ML IV SCH ×2 (07:56→16:12)
[2022-06-22] MEDS: COLLAGENASE 250 UNIT/GM OINTMENT 30 GM TUBE TOPICAL SCH (07:56)
[2022-06-22 09:14] LABS: Anisocytosis Slight; Hypochromasia Marked; MCH 27.9 pg (25.0-35.0); Mean Platelet Volume 8.1; Platelet Count 304 k/uL (150-450); Poikilocytosis Moderate; RBC 2.19 m/uL (4.30-5.90); WBC 18.1 k/uL (3.8-10.6)
[2022-06-22 09:29] LABS: Magnesium 2.1 mg/dL (1.6-2.3)
[2022-06-22 09:34] LABS: Calcium 8.3 mg/dL (8.4-10.2); Potassium 5.3 mmol/L (3.5-5.1)
[2022-06-22 09:35] LABS: Vancomycin,Random 28.1 ug/mL
[2022-06-22 09:43] LABS: HCT 19.7 % (39.0-53.0); HGB 6.1 gm/dL (13.0-17.5)
--- NOTE | 2022-06-22 09:53 | P.PN ---
Subjective Patient is seen in follow-up for acute kidney injury on chronic kidney disease. Patient has chronic kidney disease stage IIIA with baseline creatinine in the range of 1.1 x 1.3 secondary to nephrosclerosis and diabetic kidney disease. Renal function is fairly stable. Receiving IV fluids. Nonoliguric. No bloody bowel movements today. Hemoglobin today is 6.1. Vital signs are stable. General: No acute distress. HEENT: Head exam is unremarkable. LUNGS: No audible rhonchi or wheezes. HEART: Rate and Rhythm are regular. ABDOMEN: Soft, obese. EXTREMITITES: Lower extremities wrapped. No drainage. Objective - Vital Signs Vital signs: Vital Signs Temp 98.4 F 06/21/22 16:00 Pulse 88 06/22/22 03:17 Resp 16 06/22/22 03:17 BP 140/64 06/22/22 03:17 Pulse Ox 98 06/22/22 03:17 FiO2 21 06/21/22 08:42 Intake & Output 06/21/22 06/22/22 06/22/22 18:59 06:59 18:59 Intake Total 1830 310 Output Total 525 Balance 1830 -215 Intake: IV 200 Oral 1320 Blood Product 310 310 Rc As-1 Unit 310 [id number] Rc As-1 Unit 0 310 [id number] Output: Urine 525 Other: # Voids 3 1 # Bowel Movements 2 - Labs CBC & Chem 7: 06/22/22 08:30 06/22/22 08:17 Labs: Abnormal Lab Results - Last 24 Hours (Table) 06/18/22 06/21/22 06/21/22 Range/Units 13:26 12:10 17:21 WBC (3.8-10.6) k/uL RBC (4.30-5.90) m/uL Hgb (13.0-17.5) gm/dL Hct (39.0-53.0) % RDW (11.5-15.5) % Potassium (3.5-5.1) mmol/L Chloride (98-107) mmol/L BUN (9-20) mg/dL Creatinine (0.66-1.25) mg/dL Glucose (74-99) mg/dL POC Glucose (mg/dL) 185 H 159 H (70-110) mg/dL Calcium (8.4-10.2) mg/dL Vitamin B12 (200.0-944.0) pg/mL Folate (4.40-31.00) ng/mL Vancomycin Trough ug/mL Crossmatch See Detail 06/21/22 06/21/22 06/21/22 Range/Units 17:25 17:31 17:31 WBC (3.8-10.6) k/uL RBC (4.30-5.90) m/uL Hgb (13.0-17.5) gm/dL Hct (39.0-53.0) % RDW (11.5-15.5) % Potassium (3.5-5.1) mmol/L Chloride (98-107) mmol/L BUN (9-20) mg/dL Creatinine (0.66-1.25) mg/dL Glucose (74-99) mg/dL POC Glucose (mg/dL) (70-110) mg/dL Calcium (8.4-10.2) mg/dL Vitamin B12 156.0 L (200.0-944.0) pg/mL Folate 3.60 L (4.40-31.00) ng/mL Vancomycin Trough 31.0 H* ug/mL Crossmatch 06/21/22 06/22/22 06/22/22 Range/Units 20:22 06:12 08:17 WBC (3.8-10.6) k/uL RBC (4.30-5.90) m/uL Hgb (13.0-17.5) gm/dL Hct (39.0-53.0) % RDW (11.5-15.5) % Potassium 5.3 H (3.5-5.1) mmol/L Chloride 111 H (98-107) mmol/L BUN 37 H (9-20) mg/dL Creatinine 1.62 H (0.66-1.25) mg/dL Glucose 155 H (74-99) mg/dL POC Glucose (mg/dL) 206 H 182 H (70-110) mg/dL Calcium 8.3 L (8.4-10.2) mg/dL Vitamin B12 (200.0-944.0) pg/mL Folate (4.40-31.00) ng/mL Vancomycin Trough ug/mL Crossmatch 06/22/22 Range/Units 08:30 WBC 18.1 H (3.8-10.6) k/uL RBC 2.19 L (4.30-5.90) m/uL Hgb 6.1 L* (13.0-17.5) gm/dL Hct 19.7 L* (39.0-53.0) % RDW 19.0 H (11.5-15.5) % Potassium (3.5-5.1) mmol/L Chloride (98-107) mmol/L BUN (9-20) mg/dL Creatinine (0.66-1.25) mg/dL Glucose (74-99) mg/dL POC Glucose (mg/dL) (70-110) mg/dL Calcium (8.4-10.2) mg/dL Vitamin B12 (200.0-944.0) pg/mL Folate (4.40-31.00) ng/mL Vancomycin Trough ug/mL Crossmatch Microbiology - Last 24 Hours (Table) 06/17/22 17:40 Blood Culture Gram Stain - Preliminary Blood Blood Culture - Preliminary Methicillin resist S. aureus Strep agalactiae - (group b) Coagulase Negative Staph Assessment and Plan Plan: Assessment: 1. Acute kidney injury secondary to ATN secondary to acute blood loss anemia and sepsis. Vanco level 31.3 dated 04/22/2022. Creatinine 1.62 today. 2. Chronic kidney disease stage IIIa with baseline creatinine 1.1-1.3 secondary to diabetic kidney disease and nephrosclerosis. Trace proteinuria on UA. No hydronephrosis noted on CAT scan. 3. Acute GI bleed status post EGD with further intervention required by GI. Has been receiving blood transfusions. Also received IV DDAVP. CAT scan showed left upper quadrant proximal to mid jejunal GI bleed. 4. Hyperkalemia secondary to acute kidney injury and GI bleed. Stable. 5. Diabetes mellitus. 6. MRSA bacteremia and lower extremity wounds on antibiotics. ID following. Plan: Maintain IV fluids for now. Avoid nephrotoxins. Repeat DDAVP IV 1 today. Monitor vancomycin levels - dose to be adjusted for renal function. Monitor hemoglobin and transfuse as needed. Continue to monitor renal function and urine output.
[2022-06-22] MEDS ORDERED: PEG 3350 (420 GM/BTL) + LYTES 4,000 ML BOTTLE PO ONE (10:00)
[2022-06-22 11:52] LABS: Glucose,Whole Blood 172 mg/dL (70-110)
[2022-06-22] MEDS ORDERED: DESMOPRESSIN ACETATE 36 MCG in SODIUM CHLORIDE 0.9% 50 ML IVPB ONE (12:00)
[2022-06-22] MEDS: CYANOCOBALAMIN 1,000 MCG/ML 1 ML VIAL IM SCH (12:34)
[2022-06-22] MEDS: FOLIC ACID 1 MG TAB PO SCH (12:34)
--- NOTE | 2022-06-22 13:18 | P.PN ---
Subjective Progress Note Date: 06/22/22 Principal diagnosis: GI bleed This is a pleasant 56-year-old male who presented to the emergency department several days ago for lower extremity swelling and redness as well as dizziness. He was admitted for bilateral lower extremity cellulitis and started on antibiotics. He has a past medical history including morbid obesity, coronary artery disease, heart failure, CVA, diabetes mellitus, hyperlipidemia, hypertension, chronic renal disease and sleep apnea. During his hospitalization patient was noted to be anemic with a drop in his hemoglobin. Gen. surgery was consulted for anemia and suspected GI bleed. Patient denies any regular use of NSAIDs, no anticoagulation, states he has not had any previous history of GI bleed or anemia. He has not required blood transfusions in the past. Denies any history of peptic ulcer disease, states that he had an EGD maybe around 2013 or . No previous colonoscopy. Dr. Godoy was following patient and he underwent EGD this morning with findings of hiatal hernia, moderate retained food with blood, unclear assess acute bleeding. No esophageal ulcers with bleeding. Unable to intubate due to addendum due to moderate retained food. Tagged RBC has been ordered. Patient had a drop in his hemoglobin rate of 5.1 and was ordered 2 units of blood. He underwent a CT of the abdomen and pelvis without contrast showed no acute abdominal/pelvic process. He states he is unsure if he's had any blood in his stool or black stool, states that his nephew told him that he had dark stool on the day he came to the hospital. He does not state that he is having black stool since admission to the hospital that he had 2 bowel movements today. The patient had denied any abdominal pain nausea or vomiting. He states he does have some abdominal pain today as well as nausea and vomiting following his EGD. Labs today 06/22/2022: Patient seen and examined today as a follow-up. On entering his room patient was drinking bowel prep ordered by Dr. Godoy who had patient scheduled for colonoscopy on 06/23/2022. He denies any acute changes through the night. He underwent his tagged RBC yesterday with findings suggestive of left upper quadrant proximal to mid jejunal GI bleed. He denies any further bowel movements today. Repeat hemoglobin 6.1. Another unit of blood totaling 6 units this admission. Patient is denying any abdominal pain no further nausea or vomiting. Objective - Vital Signs Vital signs: Vital Signs Temp 97.9 F 06/22/22 08:00 Pulse 82 06/22/22 08:00 Resp 18 06/22/22 08:00 BP 125/60 06/22/22 08:00 Pulse Ox 100 06/22/22 12:36 FiO2 21 06/21/22 08:42 Intake & Output 06/21/22 06/22/22 06/22/22 18:59 06:59 18:59 Intake Total 1830 310 Output Total 525 Balance 1830 -215 Intake: IV 200 Oral 1320 Blood Product 310 310 Rc As-1 Unit 310 [id number] Rc As-1 Unit 0 310 [id number] Output: Urine 525 Other: # Voids 3 1 # Bowel Movements 2 - Exam General appearance: The patient is alert, oriented, appears in no acute distress. Morbidly obese HET: Head is normocephalic and atraumatic. Conjunctiva pink. Sclera anicteric. Neck: Supple without lymphadenopathy. Abdomen: Soft, nontender, nondistended with bowel sounds. No guarding or rigidity. Extremities: Normal skin color and turgor. Bilateral pedal edema. Skin: No jaundice. Bilateral lower extremities with dressings clean dry and intact. Neurological: No focal deficits. Alert and oriented. - Labs CBC & Chem 7: 06/22/22 08:30 06/22/22 08:17 Labs: Abnormal Lab Results - Last 24 Hours (Table) 06/18/22 06/21/22 06/21/22 Range/Units 13:26 17:21 17:25 WBC (3.8-10.6) k/uL RBC (4.30-5.90) m/uL Hgb (13.0-17.5) gm/dL Hct (39.0-53.0) % RDW (11.5-15.5) % Potassium (3.5-5.1) mmol/L Chloride (98-107) mmol/L BUN (9-20) mg/dL Creatinine (0.66-1.25) mg/dL Glucose (74-99) mg/dL POC Glucose (mg/dL) 159 H (70-110) mg/dL Calcium (8.4-10.2) mg/dL Vitamin B12 (200.0-944.0) pg/mL Folate (4.40-31.00) ng/mL Vancomycin Trough 31.0 H* ug/mL Crossmatch See Detail 06/21/22 06/21/22 06/21/22 Range/Units 17:31 17:31 20:22 WBC (3.8-10.6) k/uL RBC (4.30-5.90) m/uL Hgb (13.0-17.5) gm/dL Hct (39.0-53.0) % RDW (11.5-15.5) % Potassium (3.5-5.1) mmol/L Chloride (98-107) mmol/L BUN (9-20) mg/dL Creatinine (0.66-1.25) mg/dL Glucose (74-99) mg/dL POC Glucose (mg/dL) 206 H (70-110) mg/dL Calcium (8.4-10.2) mg/dL Vitamin B12 156.0 L (200.0-944.0) pg/mL Folate 3.60 L (4.40-31.00) ng/mL Vancomycin Trough ug/mL Crossmatch 06/22/22 06/22/22 06/22/22 Range/Units 06:12 08:17 08:30 WBC 18.1 H (3.8-10.6) k/uL RBC 2.19 L (4.30-5.90) m/uL Hgb 6.1 L* (13.0-17.5) gm/dL Hct 19.7 L* (39.0-53.0) % RDW 19.0 H (11.5-15.5) % Potassium 5.3 H (3.5-5.1) mmol/L Chloride 111 H (98-107) mmol/L BUN 37 H (9-20) mg/dL Creatinine 1.62 H (0.66-1.25) mg/dL Glucose 155 H (74-99) mg/dL POC Glucose (mg/dL) 182 H (70-110) mg/dL Calcium 8.3 L (8.4-10.2) mg/dL Vitamin B12 (200.0-944.0) pg/mL Folate (4.40-31.00) ng/mL Vancomycin Trough ug/mL Crossmatch 06/22/22 06/22/22 Range/Units 10:32 11:39 WBC (3.8-10.6) k/uL RBC (4.30-5.90) m/uL Hgb (13.0-17.5) gm/dL Hct (39.0-53.0) % RDW (11.5-15.5) % Potassium (3.5-5.1) mmol/L Chloride (98-107) mmol/L BUN (9-20) mg/dL Creatinine (0.66-1.25) mg/dL Glucose (74-99) mg/dL POC Glucose (mg/dL) 172 H (70-110) mg/dL Calcium (8.4-10.2) mg/dL Vitamin B12 (200.0-944.0) pg/mL Folate (4.40-31.00) ng/mL Vancomycin Trough ug/mL Crossmatch See Detail Microbiology - Last 24 Hours (Table) 06/17/22 17:40 Anaerobic Culture - Preliminary Leg - Left Anaerobic Gram Positive Cocci 06/17/22 17:40 Blood Culture Gram Stain - Preliminary Blood Blood Culture - Preliminary Methicillin resist S. aureus Strep agalactiae - (group b) Coagulase Negative Staph Assessment and Plan (1) GI bleed Narrative/Plan: 56-year-old male with multiple comorbidities presented to the emergency department 4 days ago with complaints of lower extremity swelling and redness, and dizziness was admitted for cellulitis and treated. He was noted to be anemic with hemoglobin of 7.6 on admission. No previous history of GI bleed, no anticoagulation or regular NSAID use. Patient denied any knowledge of any blood in his stool or black stool however states his nephew said his stool was dark when the ambulance came that day. No previous history of GI bleed. He's had a continuous trend down and his hemoglobin and has had 3 units of blood on this admission with another 2 units ordered today. He underwent upper endoscopy with general surgery today with findings of retained food and blood noted however EGD could not be completed due to the retained food. It was reported no esophageal ulcers with bleeding noted. Unable to intubate leg due to moderate retained food.. CAD RBC scan ordered currently pending. Unclear etiology at this time of GI bleed. We'll need to proceed with repeat EGD, colonoscopy and consider small bowel capsule endoscopy if needed. 06/22/2022: Underwent tagged RBC that reported left upper quadrant proximal to jejunal bleed. Hemoglobin up from 5.2-6.1. Patient denies any bowel movement no rectal bleeding. Likely dealing with an upper GI bleed. Patient is scheduled with Dr. Godoy for colonoscopy tomorrow per orders. We'll plan to proceed with EGD tomorrow Current Visit: Yes Status: Acute Code(s): K92.2 - GASTROINTESTINAL HEMORRHAGE, UNSPECIFIED SNOMED Code(s): 75183596 (2) Anemia Narrative/Plan: Normocytic normochromic anemia Current Visit: Yes Status: Acute Code(s): D64.9 - ANEMIA, UNSPECIFIED SNOM ED Code(s): 877755091 (3) Bilateral lower leg cellulitis Current Visit: Yes Status: Acute Code(s): L03.116 - CELLULITIS OF LEFT LOWER LIMB; L03.115 - CELLULITIS OF RIGHT LOWER LIMB SNOMED Code(s): 826117852 (4) Leukocytosis Current Visit: Yes Status: Acute Code(s): D72.829 - ELEVATED WHITE BLOOD CELL COUNT, UNSPECIFIED SNOMED Code(s): 504398930 (5) Morbid obesity with BMI of 60.0-69.9, adult Current Visit: No Status: Acute Code(s): E66.01 - MORBID (SEVERE) OBESITY DUE TO EXCESS CALORIES SNOMED Code(s): 418270172 (6) Acute on chronic kidney failure Current Visit: No Status: Acute Code(s): N17.9 - ACUTE KIDNEY FAILURE, UNSPECIFIED SNOMED Code(s): 648204313 (7) Gastroparesis Narrative/Plan: Patient fell with retained food in stomach on EGD. Likely diabetic gastroparesis. Current Visit: Yes Status: Acute Code(s): K31.84 - GASTROPARESIS SNOMED Co de(s): 811608016 Plan: 1. Continue symptomatic and supportive care 2. Daily CBC transfuse for hemoglobin less than 7 3. Agree with blood transfusion 4. Clear liquid diet, avoid red-colored dye. Nothing by mouth after midnight 5. Protonix 40 mg twice a day for GI prophylaxis 6. Avoid NSAIDs or anticoagulation 7. Antiemetics as needed 8. Patient will be scheduled for EGD with push enteroscopy tomorrow Thank you for this consultation, we will continue to follow. Dr. Eric Serrato I agree with the dictator's note, documented as a scribe by Earline Garcia.
--- NOTE | 2022-06-22 15:55 | P.PN ---
Subjective Progress Note Date: 06/22/22 This is a 56-year-old male patient who presented to the ER with concerns of weakness in lower extremity wounds. Patient reports he has had increasing weakness prompting him to call EMS for further assistance Patient has not been into see his primary care doctor in almost years has not taken his medications in over a year. Patient reports that he did not have easy accessibility to rides and getting out of the house. Patient reports he has been dealing with lower extremity wounds that he has been treating at home without improvement. Patient has a past medical history of hypertension, coronary artery disease, CVA, chronic renal disease. Chest x-ray completed showing no definitive acute radiographic process. Troponin negative. WBC 18.7. Hemoglobin 7.6.. At this time patient has been started on IV antibiotics blood cultures ordered. Wound cultures ordered. Infectious disease and wound care service is consulted. Will reorder home medication according to most recent PCP visit. We'll also consult PT OT and social work services for discharge planning and assessment of home situation On 06/19/2022 patient was seen and examined on the medical he is alert and oriented 3 in no apparent distress he is complaining of bilateral lower extremity pain at the sites of cellulitis and ulcers, he is also complaining of back pain and feeling uncomfortable in bed, otherwise he denies any complaints, there is no fever or chills no headache or dizziness no chest pain no shortness of breath no cough, no nausea or vomiting no abdominal pain no diarrhea and no urinary symptoms, hemoglobin continues to drop, patient received 1 unit of red blood cell transfusion yesterday, however today his hemoglobin has dropped to 5.8, a second unit of red blood cell transfusion was ordered this morning, will continue to monitor hemoglobin closely. Stools for Hemoccult was sent results are still pending. White blood count is improving down to 13.5 today, patient remains on IV antibiotics for bilateral lower extremity cellulitis. IV Protonix was added to medication regimen, computed tomography scan of the abdomen and pelvis was ordered by surgery for evaluation, will continue to follow closely. Prognosis is guarded. On 06/20/2022 patient is currently resting comfortably in bed alert and oriented 3. Per nursing staff patient had one dark stool last night awaiting hemoglobin level to assess if patient needs blood transfusion. Plans for EGD tomorrow per surgical services did also discuss case with neurologist Dr. Simpson patient never had the diagnosis of Parkinson's does not require any initiation of Parkinson's medication. Patient was on levodopa due to tremors post CVA. Patient remains on Maxipime and vancomycin. At this time patient denies chest pain or shortness breath. Patient denies nausea vomiting or diarrhea. Patient denies any urinary burning or frequency. CT of abdomen and pelvis showing no acute abdominal pelvic process On 06/21/2022 patient is alert and oriented 3. Patient currently getting transferred for EGD. Hemoglobin 5.1. 2 units of PRBCs have been ordered. This was discussed with nurse. Current vital signs temp 98.1, pulse rate 86, respiratory rate 19, blood pressure 110/51 with a pulse ox 98% on 2 L. Patient remains on IV Maxipime and vancomycin. Patient underwent EGD today with Dr. Godoy, patient had retained food in the stomach which limited the evaluation however there was no clear evidence of bleeding on EGD, intact red blood cell nuclear scan was ordered and gastroenterology consultation was requested hemoglobin today is down to 5.12 units of red blood cell transfusion were ordered, hematology consultation also requested , will check vitamin B12 and folate level , will continue to monitor closely On 06/22/2022 patient was seen and examined on the medical floor he is alert and oriented 3 in no apparent distress he is complaining of bilateral lower extremity pain and complaining of low back pain otherwise he denies any complaints there is no fever or chills no headache or dizziness no chest pain no shortness of breath no cough no nausea or vomiting no abdominal pain no diarrhea no burning with urination no frequency or urgency and no hematuria. Yesterday he underwent EGD with Dr. Godoy, he also underwent RBC tagged nuclear scan which revealed evidence of active GI bleeding, gastroenterology consultation was requested and he is scheduled for repeat EGD tomorrow. Patient is receiving IV antibiotic for bilateral lower extremity cellulitis with ulcers, he is also receiving red blood cell transfusion as needed for hemoglobin below 7 Objective - Vital Signs Vital signs: Vital Signs Temp 97.7 F 06/22/22 13:43 Pulse 79 06/22/22 13:43 Resp 17 06/22/22 13:43 BP 115/58 06/22/22 13:43 Pulse Ox 99 06/22/22 13:43 FiO2 21 06/21/22 08:42 Intake & Output 06/21/22 06/22/22 06/22/22 18:59 06:59 18:59 Intake Total 1830 310 340 Output Total 525 400 Balance 1830 -215 -60 Intake: IV 200 Oral 1320 340 Blood Product 310 310 0 Unit 0 Rc As-1 Unit 310 [id number] Rc As-1 Unit 0 310 [id number] Output: Urine 525 400 Other: # Voids 3 1 2 # Bowel Movements 2 - Exam In general patient is alert and oriented 3 Head normocephalic and atraumatic Neck supple no JVD no goiter Lungs clear to auscultation bilaterally no wheezing or crackles Heart regular rate and rhythm S1-S2, no rub or gallop Abdomen is soft nontender nondistended positive bowel sounds no hepatosplenomegaly Extremities bilateral lower extremity wounds and cellulitis. Serosanguineous drainage noted Neuro no gross focal deficit - Labs CBC & Chem 7: 06/22/22 08:30 06/22/22 08:17 Labs: Abnormal Lab Results - Last 24 Hours (Table) 06/18/22 06/21/22 06/21/22 Range/Units 13:26 17:21 17:25 WBC (3.8-10.6) k/uL RBC (4.30-5.90) m/uL Hgb (13.0-17.5) gm/dL Hct (39.0-53.0) % RDW (11.5-15.5) % Potassium (3.5-5.1) mmol/L Chloride (98-107) mmol/L BUN (9-20) mg/dL Creatinine (0.66-1.25) mg/dL Glucose (74-99) mg/dL POC Glucose (mg/dL) 159 H (70-110) mg/dL Calcium (8.4-10.2) mg/dL Vitamin B12 (200.0-944.0) pg/mL Folate (4.40-31.00) ng/mL Vancomycin Trough 31.0 H* ug/mL Crossmatch See Detail 06/21/22 06/21/22 06/21/22 Range/Units 17:31 17:31 20:22 WBC (3.8-10.6) k/uL RBC (4.30-5.90) m/uL Hgb (13.0-17.5) gm/dL Hct (39.0-53.0) % RDW (11.5-15.5) % Potassium (3.5-5.1) mmol/L Chloride (98-107) mmol/L BUN (9-20) mg/dL Creatinine (0.66-1.25) mg/dL Glucose (74-99) mg/dL POC Glucose (mg/dL) 206 H (70-110) mg/dL Calcium (8.4-10.2) mg/dL Vitamin B12 156.0 L (200.0-944.0) pg/mL Folate 3.60 L (4.40-31.00) ng/mL Vancomycin Trough ug/mL Crossmatch 06/22/22 06/22/22 06/22/22 Range/Units 06:12 08:17 08:30 WBC 18.1 H (3.8-10.6) k/uL RBC 2.19 L (4.30-5.90) m/uL Hgb 6.1 L* (13.0-17.5) gm/dL Hct 19.7 L* (39.0-53.0) % RDW 19.0 H (11.5-15.5) % Potassium 5.3 H (3.5-5.1) mmol/L Chloride 111 H (98-107) mmol/L BUN 37 H (9-20) mg/dL Creatinine 1.62 H (0.66-1.25) mg/dL Glucose 155 H (74-99) mg/dL POC Glucose (mg/dL) 182 H (70-110) mg/dL Calcium 8.3 L (8.4-10.2) mg/dL Vitamin B12 (200.0-944.0) pg/mL Folate (4.40-31.00) ng/mL Vancomycin Trough ug/mL Crossmatch 06/22/22 06/22/22 Range/Units 10:32 11:39 WBC (3.8-10.6) k/uL RBC (4.30-5.90) m/uL Hgb (13.0-17.5) gm/dL Hct (39.0-53.0) % RDW (11.5-15.5) % Potassium (3.5-5.1) mmol/L Chloride (98-107) mmol/L BUN (9-20) mg/dL Creatinine (0.66-1.25) mg/dL Glucose (74-99) mg/dL POC Glucose (mg/dL) 172 H (70-110) mg/dL Calcium (8.4-10.2) mg/dL Vitamin B12 (200.0-944.0) pg/mL Folate (4.40-31.00) ng/mL Vancomycin Trough ug/mL Crossmatch See Detail Microbiology - Last 24 Hours (Table) 06/17/22 17:40 Anaerobic Culture - Preliminary Leg - Left Anaerobic Gram Positive Cocci 06/17/22 17:40 Blood Culture Gram Stain - Preliminary Blood Blood Culture - Preliminary Methicillin resist S. aureus Strep agalactiae - (group b) Coagulase Negative Staph Assessment and Plan Plan: 1. Lower extremity cellulitis with elevated white blood cell count 2. Noncompliance with medication patient reports he has not been taking his meds in over here and has not seen his PCP in over 2 years 3. History of CVA 4. Morbid obesity 5. History of essential hypertension 6. Diabetes mellitus type 2. Hemoglobin A1c 6.8. Patient has not taken medication in over a year 7. Chronic venous stasis 8. Patient previously on levodopa due to tremors post CVA discussed case with neurologist patient does not require any further medication 9. Anemia with positive occult blood. Plans for EGD on Tuesday per surgical services 10. Hyperkalemia potassium 5.6 11. Acute kidney injury creatinine 1.3 bun 52 on presentation, improving gradually DVT prophylaxis SCDs due to anemia Infectious disease consulted for lower extremity cellulitis patient maintained on IV antibiotics Per neurology patient never had the diagnosis of Parkinson's disease does not require any further medication. Recommendations of initiation of aspirin once surgical clearance surgical services also consulted for anemia Patient received 1 unit PRBCs on 06/19/2022 2 units of PRBCs ordered for 06/21/2022 EGD scheduled for 06/21/2022 Repeat labs ordered blood and wound culture ordered
--- NOTE | 2022-06-22 16:08 | P.CONS ---
History of Present Illness - Reason for Consult Consult date: 06/22/22 Anemia Requesting physician: Claudia Ragsdale - Chief Complaint dizziness and weakness - History of Present Illness Patient is a 56-year-old male with multiple comorbidities. We are consulted for anemia. Patient presented to the emergency room due to shortness of breath, dizziness and generalized weakness. Patient states he is walking to the bathroom when he became short of breath and felt he was going to pass out, at which time he called 911. Patient also has chronic bilateral lower extremity. Patient states he has been doing these for 10-15 years but used to follow-up of the wound center here at [facility]. But after Covid he has been taking care of him himself at home, and reports that over the last 1-2 months wounds have began to worsen on the top of his feet. Patient reports he's been having melena and diarrhea over the last 1 week. Patient is on [address] abdomen and pelvis reveal no acute abdominal pelvic process within limitations of a noncontrast exam and patient body habitus. Nonobstructive right renal calculus. 8 RBC scan showed a left upper quadrant to mid jejunal GI bleed. Colonoscopy is planned for tomorrow. Wound and blood cultures positive, patient is currently on cefepime and vancomycin. Hemoglobin has ranged from 5.1-7.6 during admission and has received 5 units of PRBCs. Hemoglobin6.1 today, additional unit PRBCs was ordered. Iron studies revealed, iron 29, iron saturation 9.5%. Vitamin B12 and folate were low. Review of Systems 10 point ROS is negative except as stated in the HPI Past Medical History Past Medical History: Blood Disorder, Coronary Artery Disease (CAD), Heart Failure, CVA/TIA, Diabetes Mellitus, Hyperlipidemia, Hypertension, Renal Disease, Sleep Apnea/CPAP/BIPAP Additional Past Medical History / Comment(s): Chronic back pain; USES C-PAP; kidney stones, RENAL FAILURE; NEUROPATHY. WEARS COPPER FITBOOTS D/T PVD. 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 MDRO Source:: Right Leg-MRSA; VRE Leg wound Additional Past Surgical History / Comment(s): kidney stones removed, HX DRAINAGE TUBE, CYSTOSCOPY; DEBRIDMENTS TO LEGS X6 IN 2009 Past Anesthesia/Blood Transfusion Reactions: No Reported Reaction Past Psychological History: Anxiety, Depression Past Alcohol Use History: None Reported Past Drug Use History: None Reported - Past Family History Mother Family Medical History: Cancer Father Family Medical History: Hypertension Medications and Allergies Home Medications Medication Instructions Recorded Confirmed Type No Known Home Medications 06/17/22 06/17/22 History Allergies Allergy/AdvReac Type Severity Reaction Status Date / Time Penicillins Allergy Unknown Unknown Verified 06/09/18 08:22 Childhood adhesive Allergy Rash/Hives Verified 06/09/18 08:22 peanut AdvReac Nausea & Verified 06/09/18 08:22 Vomiting Physical Exam Vitals: Vital Signs Temp Pulse Pulse Resp BP BP Pulse Ox 06/22/22 13:43 97.7 F 79 17 115/58 99 06/22/22 13:23 98.1 F 80 18 131/60 99 06/22/22 12:36 100 06/22/22 12:00 97.7 F 84 20 131/59 100 06/22/22 08:00 97.9 F 82 18 125/60 100 06/22/22 03:17 88 16 140/64 98 06/22/22 00:00 89 18 113/57 94 L 06/21/22 21:21 92 18 118/59 98 06/21/22 19:15 92 19 100/52 95 06/21/22 19:00 94 17 98/50 92 L 06/21/22 16:00 98.4 F 92 22 117/51 94 L Intake and Output 06/22/22 06/22/22 06/22/22 06:59 14:59 22:59 Intake Total 340 Output Total 175 400 Balance -175 -60 Intake: Oral 340 Blood Product 0 Unit 0 Output: Urine 175 400 Other: # Voids 2 - Constitutional General appearance: morbidly obese, no acute distress - EENT Eyes: anicteric sclerae, EOMI ENT: hearing grossly normal - Respiratory Respiratory: bilateral: CTA - Cardiovascular Rhythm: regular Heart sounds: normal: S1, S2 Abnormal Heart Sounds: no systolic murmur, no diastolic murmur, no rub, no S3 Gallop, no S4 Gallop, no click, no other - Gastrointestinal General gastrointestinal: soft, no tenderness - Integumentary BLE wounds. Lower extremities wrapped in guaze bandages, weeping present on radha avelina aspect of bilateral feet. Skin is dry and flaky. - Musculoskeletal Musculoskeletal: generalized weakness - Psychiatric Psychiatric: A&O x's 3, appropriate affect, intact judgment & insight Results CBC & Chem 7: 06/22/22 08:30 06/22/22 08:17 Labs: Abnormal Lab Results - Last 24 Hours (Table) 06/18/22 06/21/22 06/21/22 Range/Units 13:26 17:21 17:25 WBC (3.8-10.6) k/uL RBC (4.30-5.90) m/uL Hgb (13.0-17.5) gm/dL Hct (39.0-53.0) % RDW (11.5-15.5) % Potassium (3.5-5.1) mmol/L Chloride (98-107) mmol/L BUN (9-20) mg/dL Creatinine (0.66-1.25) mg/dL Glucose (74-99) mg/dL POC Glucose (mg/dL) 159 H (70-110) mg/dL Calcium (8.4-10.2) mg/dL Vitamin B12 (200.0-944.0) pg/mL Folate (4.40-31.00) ng/mL Vancomycin Trough 31.0 H* ug/mL Crossmatch See Detail 06/21/22 06/21/22 06/21/22 Range/Units 17:31 17:31 20:22 WBC (3.8-10.6) k/uL RBC (4.30-5.90) m/uL Hgb (13.0-17.5) gm/dL Hct (39.0-53.0) % RDW (11.5-15.5) % Potassium (3.5-5.1) mmol/L Chloride (98-107) mmol/L BUN (9-20) mg/dL Creatinine (0.66-1.25) mg/dL Glucose (74-99) mg/dL POC Glucose (mg/dL) 206 H (70-110) mg/dL Calcium (8.4-10.2) mg/dL Vitamin B12 156.0 L (200.0-944.0) pg/mL Folate 3.60 L (4.40-31.00) ng/mL Vancomycin Trough ug/mL Crossmatch 06/22/22 06/22/22 06/22/22 Range/Units 06:12 08:17 08:30 WBC 18.1 H (3.8-10.6) k/uL RBC 2.19 L (4.30-5.90) m/uL Hgb 6.1 L* (13.0-17.5) gm/dL Hct 19.7 L* (39.0-53.0) % RDW 19.0 H (11.5-15.5) % Potassium 5.3 H (3.5-5.1) mmol/L Chloride 111 H (98-107) mmol/L BUN 37 H (9-20) mg/dL Creatinine 1.62 H (0.66-1.25) mg/dL Glucose 155 H (74-99) mg/dL POC Glucose (mg/dL) 182 H (70-110) mg/dL Calcium 8.3 L (8.4-10.2) mg/dL Vitamin B12 (200.0-944.0) pg/mL Folate (4.40-31.00) ng/mL Vancomycin Trough ug/mL Crossmatch 06/22/22 06/22/22 Range/Units 10:32 11:39 WBC (3.8-10.6) k/uL RBC (4.30-5.90) m/uL Hgb (13.0-17.5) gm/dL Hct (39.0-53.0) % RDW (11.5-15.5) % Potassium (3.5-5.1) mmol/L Chloride (98-107) mmol/L BUN (9-20) mg/dL Creatinine (0.66-1.25) mg/dL Glucose (74-99) mg/dL POC Glucose (mg/dL) 172 H (70-110) mg/dL Calcium (8.4-10.2) mg/dL Vitamin B12 (200.0-944.0) pg/mL Folate (4.40-31.00) ng/mL Vancomycin Trough ug/mL Crossmatch See Detail Microbiology - Last 24 Hours (Table) 06/17/22 17:40 Anaerobic Culture - Preliminary Leg - Left Anaerobic Gram Positive Cocci 06/17/22 17:40 Blood Culture Gram Stain - Preliminary Blood Blood Culture - Preliminary Methicillin resist S. aureus Strep agalactiae - (group b) Coagulase Negative Staph Comments: Tagged RBC scan was reviewed CT scan - abdomen: report reviewed CT scan - pelvis: report reviewed Assessment and Plan (1) Anemia Current Visit: Yes Status: Acute Priority: High Code(s): D64.9 - ANEMIA, UNSPECIFIED SNOMED Code(s): 709126932 (2) Bilateral lower leg cellulitis Current Visit: Yes Status: Acute Priority: High Code(s): L03.116 - CELLULITIS OF LEFT LOWER LIMB; L03.115 - CELLULITIS OF RIGHT LOWER LIMB SNOMED Code(s): 810947936 (3) Bacteremia Current Visit: Yes Status: Acute Priority: High Code(s): R78.81 - BACTEREMIA SNOMED Code(s): 5353209 Plan: Anemia: -Hemoglobin has ranged from 5.1-7.6 during admission and has received 5 units of PRBCs. Hemoglobin 6.1 today, additional unit PRBCs was ordered. Iron studies revealed, iron 29, iron saturation 9.5%. Vitamin B12 and folate were low. Ferr itin was ordered on pre-transfusion blood. Will hold IV iron infusion at this time due to acute infection. Vitamin B12 and folate supplementation ordered -Tagged RBC scan showed a left upper quadrant to mid jejunal GI bleed. GI and surgery have been consulted. Colonoscopy scheduled for tomorrow -Please continue to hold aspirin -Anemia likely related to acute GI bleed superimposed by chronic inflammation -Will continue to monitor counts. Please transfuse for hemoglobin less than 7 or symptomatic Bactermia/BLE wounds: -Blood cultures and wound culture positive. Pt continues on cefepime and vancomycin -Defer management to IM/ID team attests: I have performed H&P and vault impression and plan of care for patient, discussed with dictator. I agree with dictated note, documented as a scribe
[2022-06-22] MEDS: metroNIDAZOLE 500 MG TAB PO SCH ×2 (16:12→20:51)
--- NOTE | 2022-06-22 16:16 | P.PN ---
Subjective Progress Note Date: 06/22/22 CHIEF COMPLAINT: Anemia HISTORY OF PRESENT ILLNESS: Patient is status post EGD had shown moderate retained food with blood and unclear to assess acute bleeding. GI consulted for intervention due to acute GI bleed. Tagged RBC scan had showed findings suggest left upper quadrant proximal to mid jejunal GI bleed. Patient is scheduled for EGD with push enteroscopy tomorrow with Dr. Serrato. Hemoglobin up from 5.1-6.1 after 2 units of blood. Patient scheduled for another unit of blood today. Patient does report black stools. Denies any abdominal pain. PHYSICAL EXAM: VITAL SIGNS: Reviewed GENERAL: Well-developed in no acute distress. HEENT: No sclera icterus. Extraocular movements grossly intact. Moist buccal mucosa. Head is atraumatic, normocephalic. Hears conversational speech. No nasal drainage. NECK: Supple without lymphadenopathy. CHEST: Non-labored respirations and equal bilateral excursions. CARDIOVASCULAR: Palpable 2+ radial pulses. ABDOMEN: Soft. Obese. Nondistended. Nontender. MUSCULOSKELETAL: No clubbing or cyanosis. NEUROLOGIC: No focal or lateralizing signs. Cranial nerves II through XII grossly intact. PSYCH: Appropriate affect. Alert and oriented to person, place and time. SKIN: Well perfused. Good skin turgor. ASSESSMENT: 1. Anemia with black stools 2. Tagged RBC scan with findings to assess left upper quadrant proximal to mid jejunal GI bleed 3. Morbid obesity 4. Moderate retained gastric food on EGD PLAN: -Patient scheduled for EGD with push enteroscopy with GI service tomorrow -Colonoscopy canceled -Continue workup per GI service -Continue Protonix -Continue supportive Physician Deputy General Counsel note has been reviewed by physician. Signing provider agrees with the documented findings, assessment, and plan of care. Please see additional documentation below Patient presented with generalized weakness and anemia. Attempted upper e ndoscopy was unsuccessful due to moderate food within the stomach preventing intubation of the duodenum. No varices of the esophagus identified. Due to Recurrent Anemia, Tagged RBC Scan Was Obtained. Imaging of Tagged RBC Scan Independently Reviewed Demonstrates Area of Activity of the Upper Abdomen Particularly Left Upper Quadrant. Due to complexity of anemia and need for GI intervention, GI team consulted for management of acute GI bleed possible clipping of intestinal vessel and or push enteroscopy. General surgery on standby and will follow. Objective - Vital Signs Vital signs: Vital Signs Temp 97.7 F 06/22/22 13:43 Pulse 79 06/22/22 13:43 Resp 17 06/22/22 13:43 BP 115/58 06/22/22 13:43 Pulse Ox 99 06/22/22 13:43 FiO2 21 06/21/22 08:42 Intake & Output 06/21/22 06/22/22 06/22/22 18:59 06:59 18:59 Intake Total 1830 310 340 Output Total 525 400 Balance 1830 -215 -60 Intake: IV 200 Oral 1320 340 Blood Product 310 310 0 Unit 0 Rc As-1 Unit 310 [id number] Rc As-1 Unit 0 310 [id number] Output: Urine 525 400 Other: # Voids 3 1 2 # Bowel Movements 2 - Labs CBC & Chem 7: 06/22/22 18:11 06/22/22 08:17 Labs: Abnormal Lab Results - Last 24 Hours (Table) 06/18/22 06/21/22 06/21/22 Range/Units 13:26 17:21 17:25 WBC (3.8-10.6) k/uL RBC (4.30-5.90) m/uL Hgb (13.0-17.5) gm/dL Hct (39.0-53.0) % RDW (11.5-15.5) % Potassium (3.5-5.1) mmol/L Chloride (98-107) mmol/L BUN (9-20) mg/dL Creatinine (0.66-1.25) mg/dL Glucose (74-99) mg/dL POC Glucose (mg/dL) 159 H (70-110) mg/dL Calcium (8.4-10.2) mg/dL Vitamin B12 (200.0-944.0) pg/mL Folate (4.40-31.00) ng/mL Vancomycin Trough 31.0 H* ug/mL Crossmatch See Detail 06/21/22 06/21/22 06/21/22 Range/Units 17:31 17:31 20:22 WBC (3.8-10.6) k/uL RBC (4.30-5.90) m/uL Hgb (13.0-17.5) gm/dL Hct (39.0-53.0) % RDW (11.5-15.5) % Potassium (3.5-5.1) mmol/L Chloride (98-107) mmol/L BUN (9-20) mg/dL Creatinine (0.66-1.25) mg/dL Glucose (74-99) mg/dL POC Glucose (mg/dL) 206 H (70-110) mg/dL Calcium (8.4-10.2) mg/dL Vitamin B12 156.0 L (200.0-944.0) pg/mL Folate 3.60 L (4.40-31.00) ng/mL Vancomycin Trough ug/mL Crossmatch 06/22/22 06/22/22 06/22/22 Range/Units 06:12 08:17 08:30 WBC 18.1 H (3.8-10.6) k/uL RBC 2.19 L (4.30-5.90) m/uL Hgb 6.1 L* (13.0-17.5) gm/dL Hct 19.7 L* (39.0-53.0) % RDW 19.0 H (11.5-15.5) % Potassium 5.3 H (3.5-5.1) mmol/L Chloride 111 H (98-107) mmol/L BUN 37 H (9-20) mg/dL Creatinine 1.62 H (0.66-1.25) mg/dL Glucose 155 H (74-99) mg/dL POC Glucose (mg/dL) 182 H (70-110) mg/dL Calcium 8.3 L (8.4-10.2) mg/dL Vitamin B12 (200.0-944.0) pg/mL Folate (4.40-31.00) ng/mL Vancomycin Trough ug/mL Crossmatch 06/22/22 06/22/22 Range/Units 10:32 11:39 WBC (3.8-10.6) k/uL RBC (4.30-5.90) m/uL Hgb (13.0-17.5) gm/dL Hct (39.0-53.0) % RDW (11.5-15.5) % Potassium (3.5-5.1) mmol/L Chloride (98-107) mmol/L BUN (9-20) mg/dL Creatinine (0.66-1.25) mg/dL Glucose (74-99) mg/dL POC Glucose (mg/dL) 172 H (70-110) mg/dL Calcium (8.4-10.2) mg/dL Vitamin B12 (200.0-944.0) pg/mL Folate (4.40-31.00) ng/mL Vancomycin Trough ug/mL Crossmatch See Detail Microbiology - Last 24 Hours (Table) 06/17/22 17:40 Anaerobic Culture - Preliminary Leg - Left Anaerobic Gram Positive Cocci 06/17/22 17:40 Blood Culture Gram Stain - Preliminary Blood Blood Culture - Preliminary Methicillin resist S. aureus Strep agalactiae - (group b) Coagulase Negative Staph
[2022-06-22 16:32] LABS: Glucose,Whole Blood 172 mg/dL (70-110)
[2022-06-22 19:09] LABS: Anisocytosis Slight; Hypochromasia Marked; MCH 28.9 pg (25.0-35.0); MCHC 31.6 g/dL (31.0-37.0); MCV 91.4 fL (80.0-100.0); Mean Platelet Volume 8.2; Platelet Count 261 k/uL (150-450); Poikilocytosis Moderate; RBC 2.06 m/uL (4.30-5.90); RDW 18.9 % (11.5-15.5); WBC 17.1 k/uL (3.8-10.6)
[2022-06-22 19:22] LABS: HCT 18.9 % (39.0-53.0)
--- NOTE | 2022-06-22 19:39 | P.PN ---
Subjective Progress Note Date: 06/22/22 Principal diagnosis: Bilateral lower extremity ulcers cellulitis and bacteremia Patient is a 56-year male with a past medical history significant for CVA TIA coronary disease heart failure patient did have a history of bilateral lower extremity venous stasis ulcer, presented to hospital with weakness and syncopal episode patient did have worsening of bilateral lower extremity wound and cellulitis and did have evidence of bacteremia. On today's evaluation that is 06/22/2022, the patient remains to be afebrile, the patient is breathing comfortably currently on 2L nasal cannula oxygen, the patient denies chest pain or shortness of breath, the patient denies any wo rsening cough or sputum production, no further nausea or vomiting no abdominal pain and no diarrhea has been reported Objective - Vital Signs Vital signs: Vital Signs Temp 98.3 F 06/22/22 16:09 Pulse 81 06/22/22 16:09 Resp 18 06/22/22 16:09 BP 127/58 06/22/22 16:09 Pulse Ox 99 06/22/22 16:09 FiO2 21 06/21/22 08:42 Intake & Output 06/22/22 06/22/22 06/23/22 06:59 18:59 06:59 Intake Total 310 1190 Output Total 525 625 Balance -215 565 Intake: Oral 880 Blood Product 310 310 Rc As-1 Unit 310 [id number] Rc As-1 Unit 310 [id number] Output: Urine 525 625 Other: # Voids 1 1 # Bowel Movements 1 - Exam GENERAL DESCRIPTION: A middle-age male lying in bed in no distress RESPIRATORY SYSTEM: Unlabored breathing , decreased breath sounds at bases HEART: S1 S2 regular rate and rhythm , ABDOMEN: Soft , no tenderness EXTREMITIES: Bilateral lower extremity currently wrapped no drainage on the dressing - Labs CBC & Chem 7: 06/22/22 18:11 06/22/22 08:17 Labs: Abnormal Lab Results - Last 24 Hours (Table) 06/18/22 06/21/22 06/21/22 Range/Units 13:26 17:25 17:31 WBC (3.8-10.6) k/uL RBC (4.30-5.90) m/uL Hgb (13.0-17.5) gm/dL Hct (39.0-53.0) % RDW (11.5-15.5) % Potassium (3.5-5.1) mmol/L Chloride (98-107) mmol/L BUN (9-20) mg/dL Creatinine (0.66-1.25) mg/dL Glucose (74-99) mg/dL POC Glucose (mg/dL) (70-110) mg/dL Calcium (8.4-10.2) mg/dL Vitamin B12 156.0 L (200.0-944.0) pg/mL Folate (4.40-31.00) ng/mL Vancomycin Trough 31.0 H* ug/mL Crossmatch See Detail 06/21/22 06/21/22 06/22/22 Range/Units 17:31 20:22 06:12 WBC (3.8-10.6) k/uL RBC (4.30-5.90) m/uL Hgb (13.0-17.5) gm/dL Hct (39.0-53.0) % RDW (11.5-15.5) % Potassium (3.5-5.1) mmol/L Chloride (98-107) mmol/L BUN (9-20) mg/dL Creatinine (0.66-1.25) mg/dL Glucose (74-99) mg/dL POC Glucose (mg/dL) 206 H 182 H (70-110) mg/dL Calcium (8.4-10.2) mg/dL Vitamin B12 (200.0-944.0) pg/mL Folate 3.60 L (4.40-31.00) ng/mL Vancomycin Trough ug/mL Crossmatch 06/22/22 06/22/22 06/22/22 Range/Units 08:17 08:30 10:32 WBC 18.1 H (3.8-10.6) k/uL RBC 2.19 L (4.30-5.90) m/uL Hgb 6.1 L* (13.0-17.5) gm/dL Hct 19.7 L* (39.0-53.0) % RDW 19.0 H (11.5-15.5) % Potassium 5.3 H (3.5-5.1) mmol/L Chloride 111 H (98-107) mmol/L BUN 37 H (9-20) mg/dL Creatinine 1.62 H (0.66-1.25) mg/dL Glucose 155 H (74-99) mg/dL POC Glucose (mg/dL) (70-110) mg/dL Calcium 8.3 L (8.4-10.2) mg/dL Vitamin B12 (200.0-944.0) pg/mL Folate (4.40-31.00) ng/mL Vancomycin Trough ug/mL Crossmatch See Detail 06/22/22 06/22/22 06/22/22 Range/Units 11:39 16:31 18:11 WBC 17.1 H (3.8-10.6) k/uL RBC 2.06 L (4.30-5.90) m/uL Hgb 6.0 L* (13.0-17.5) gm/dL Hct 18.9 L* (39.0-53.0) % RDW 18.9 H (11.5-15.5) % Potassium (3.5-5.1) mmol/L Chloride (98-107) mmol/L BUN (9-20) mg/dL Creatinine (0.66-1.25) mg/dL Glucose (74-99) mg/dL POC Glucose (mg/dL) 172 H 172 H (70-110) mg/dL Calcium (8.4-10.2) mg/dL Vitamin B12 (200.0-944.0) pg/mL Folate (4.40-31.00) ng/mL Vancomycin Trough ug/mL Crossmatch Microbiology - Last 24 Hours (Table) 06/17/22 17:40 Anaerobic Culture - Preliminary Leg - Left Anaerobic Gram Positive Cocci Assessment and Plan (1) Bacteremia Current Visit: Yes Status: Acute Code(s): R78.81 - BACTEREMIA SNOMED Code(s): 7349745 (2) Bilateral lower leg cellulitis Current Visit: Yes Status: Acute Code(s): L03.116 - CELLULITIS OF LEFT LOWER LIMB; L03.115 - CELLULITIS OF RIGHT LOWER LIMB SNOMED Code(s): 566111120 Plan: 1patient with bilateral lower extremity venous stasis ulcer and a component of cellulitis likely from gram-positive skin ani such as strep or Staph aureus 2-patient with MRSA bacteremia likely related to bilateral extremity wound and cellulitis, blood cultures growing MRSA and Streptococcus along with a copious negative staph, the patient local wound culture from the leg wounds are growing MRSA Morganella and anaerobic 3-patient to continue with vancomycin, cefepime we will Add oral Flagyl to cover for the anaerobes, and blood cultures has been repeated to document clearance of his bacteremia
[2022-06-22 20:02] LABS: Glucose,Whole Blood 194 mg/dL (70-110)
[2022-06-23 06:02] LABS: Glucose,Whole Blood 169 mg/dL (70-110)
[2022-06-23] MEDS: INSULIN ASPART (NovoLOG) 100 UNIT/ML VIAL SQ SCH ×4 (07:03→21:13)
[2022-06-23] MEDS: FOLIC ACID 1 MG TAB PO SCH (08:12)
[2022-06-23] MEDS: metroNIDAZOLE 500 MG TAB PO SCH ×3 (08:12→20:54)
[2022-06-23 08:32] LABS: Anisocytosis Slight; Basophils % (A) 0 %; Eosinophils # (A) 0.8 k/uL (0-0.7); Eosinophils % (A) 4 %; Hypochromasia Marked; Lymphocytes % (A) 10 %; MCH 28.3 pg (25.0-35.0); MCHC 31.6 g/dL (31.0-37.0); MCV 89.4 fL (80.0-100.0); Mean Platelet Volume 8.1; Monocytes % (A) 5 %; Neutrophils # (A) 15.4 k/uL (1.3-7.7); Neutrophils % (A) 79 %; Platelet Count 296 k/uL (150-450); Poikilocytosis Moderate; RBC 2.12 m/uL (4.30-5.90); RDW 19.3 % (11.5-15.5); WBC 19.7 k/uL (3.8-10.6)
[2022-06-23 08:50] LABS: Albumin 2.5 g/dL (3.5-5.0); Calcium 8.5 mg/dL (8.4-10.2); Magnesium 2.1 mg/dL (1.6-2.3); Total Bilirubin 0.2 mg/dL (0.2-1.3); Total Protein 5.7 g/dL (6.3-8.2)
[2022-06-23 09:02] LABS: C Reactive Protein 1.5 mg/dL (<1.0)
[2022-06-23] MEDS: SODIUM CHLORIDE 0.9% 1,000 ML IV SCH (09:04)
[2022-06-23] MEDS: CEFEPIME 2 GM in SODIUM CHLORIDE 0.9% 100 ML IVPB SCH ×2 (09:04→20:54)
[2022-06-23] MEDS: COLLAGENASE 250 UNIT/GM OINTMENT 30 GM TUBE TOPICAL SCH (09:04)
[2022-06-23] MEDS: CYANOCOBALAMIN 1,000 MCG/ML 1 ML VIAL IM SCH (09:04)
[2022-06-23] MEDS: PANTOPRAZOLE 40 MG/10 ML VIAL IVP SCH ×2 (09:04→20:54)
--- NOTE | 2022-06-23 10:01 | P.PN ---
Subjective Progress Note Date: 06/23/22 This is a 56-year-old male patient who presented to the ER with concerns of weakness in lower extremity wounds. Patient reports he has had increasing weakness prompting him to call EMS for further assistance Patient has not been into see his primary care doctor in almost years has not taken his medications in over a year. Patient reports that he did not have easy accessibility to rides and getting out of the house. Patient reports he has been dealing with lower extremity wounds that he has been treating at home without improvement. Patient has a past medical history of hypertension, coronary artery disease, CVA, chronic renal disease. Chest x-ray completed showing no definitive acute radiographic process. Troponin negative. WBC 18.7. Hemoglobin 7.6.. At this time patient has been started on IV antibiotics blood cultures ordered. Wound cultures ordered. Infectious disease and wound care service is consulted. Will reorder home medication according to most recent PCP visit. We'll also consult PT OT and social work services for discharge planning and assessment of home situation On 06/19/2022 patient was seen and examined on the medical he is alert and oriented 3 in no apparent distress he is complaining of bilateral lower extremity pain at the sites of cellulitis and ulcers, he is also complaining of back pain and feeling uncomfortable in bed, otherwise he denies any complaints, there is no fever or chills no headache or dizziness no chest pain no shortness of breath no cough, no nausea or vomiting no abdominal pain no diarrhea and no urinary symptoms, hemoglobin continues to drop, patient received 1 unit of red blood cell transfusion yesterday, however today his hemoglobin has dropped to 5.8, a second unit of red blood cell transfusion was ordered this morning, will continue to monitor hemoglobin closely. Stools for Hemoccult was sent results are still pending. White blood count is improving down to 13.5 today, patient remains on IV antibiotics for bilateral lower extremity cellulitis. IV Protonix was added to medication regimen, computed tomography scan of the abdomen and pelvis was ordered by surgery for evaluation, will continue to follow closely. Prognosis is guarded. On 06/20/2022 patient is currently resting comfortably in bed alert and oriented 3. Per nursing staff patient had one dark stool last night awaiting hemoglobin level to assess if patient needs blood transfusion. Plans for EGD tomorrow per surgical services did also discuss case with neurologist Dr. Simpson patient never had the diagnosis of Parkinson's does not require any initiation of Parkinson's medication. Patient was on levodopa due to tremors post CVA. Patient remains on Maxipime and vancomycin. At this time patient denies chest pain or shortness breath. Patient denies nausea vomiting or diarrhea. Patient denies any urinary burning or frequency. CT of abdomen and pelvis showing no acute abdominal pelvic process On 06/21/2022 patient is alert and oriented 3. Patient currently getting transferred for EGD. Hemoglobin 5.1. 2 units of PRBCs have been ordered. This was discussed with nurse. Current vital signs temp 98.1, pulse rate 86, respiratory rate 19, blood pressure 110/51 with a pulse ox 98% on 2 L. Patient remains on IV Maxipime and vancomycin. Patient underwent EGD today with Dr. Godoy, patient had retained food in the stomach which limited the evaluation however there was no clear evidence of bleeding on EGD, intact red blood cell nuclear scan was ordered and gastroenterology consultation was requested hemoglobin today is down to 5.12 units of red blood cell transfusion were ordered, hematology consultation also requested , will check vitamin B12 and folate level , will continue to monitor closely On 06/22/2022 patient was seen and examined on the medical floor he is alert and oriented 3 in no apparent distress he is complaining of bilateral lower extremity pain and complaining of low back pain otherwise he denies any complaints there is no fever or chills no headache or dizziness no chest pain no shortness of breath no cough no nausea or vomiting no abdominal pain no diarrhea no burning with urination no frequency or urgency and no hematuria. Yesterday he underwent EGD with Dr. Godoy, he also underwent RBC tagged nuclear scan which revealed evidence of active GI bleeding, gastroenterology consultation was requested and he is scheduled for repeat EGD tomorrow. Patient is receiving IV antibiotic for bilateral lower extremity cellulitis with ulcers, he is also receiving red blood cell transfusion as needed for hemoglobin below 7 On 06/23/2022 patient is alert and oriented times the. Discussed with nursing staff plan for EGD with GI services Dr. Bernard today. Hemoglobin 6.01 unit of PRBCs ordered. Patient remains on IV vancomycin and Maxipime. Flagyl also added per infectious disease services at this time vitals have remained stable. Per nursing staff patient still having dark stools no vomiting. Temp 98.2, heart rate 84, history rate 18, blood pressure 133/64 with pulse ox 98% on 2 L. Infectious disease, surgical services, GI services, hematology services and nephrology services following Objective - Vital Signs Vital signs: Vital Signs Temp 98.2 F 06/23/22 04:00 Pulse 84 06/23/22 04:00 Resp 18 06/23/22 04:00 BP 133/64 06/23/22 04:00 Pulse Ox 98 06/23/22 04:00 FiO2 21 06/21/22 08:42 Intake & Output 06/22/22 06/23/22 06/23/22 18:59 06:59 18:59 Intake Total 1190 310 Output Total 625 1000 Balance 565 -690 Intake: Oral 880 Blood Product 310 310 Rc As-1 Unit 310 [id number] Rc As-1 Unit 310 [id number] Output: Urine 625 1000 Other: Voiding Method Urinal # Voids 1 1 # Bowel Movements 1 1 - Exam In general patient is alert and oriented 3 Head normocephalic and atraumatic Neck supple no JVD no goiter Lungs clear to auscultation bilaterally no wheezing or crackles Heart regular rate and rhythm S1-S2, no rub or gallop Abdomen is soft nontender nondistended positive bowel sounds no hepatosplenomegaly Extremities bilateral lower extremity wounds and cellulitis. Serosanguineous drainage noted Neuro no gross focal deficit - Labs CBC & Chem 7: 06/23/22 08:04 06/23/22 08:04 Labs: Abnormal Lab Results - Last 24 Hours (Table) 06/22/22 06/22/22 06/22/22 Range/Units 10:32 11:39 16:31 WBC (3.8-10.6) k/uL RBC (4.30-5.90) m/uL Hgb (13.0-17.5) gm/dL Hct (39.0-53.0) % RDW (11.5-15.5) % Neutrophils # (1.3-7.7) k/uL Eosinophils # (0-0.7) k/uL Chloride (98-107) mmol/L BUN (9-20) mg/dL Creatinine (0.66-1.25) mg/dL Glucose (74-99) mg/dL POC Glucose (mg/dL) 172 H 172 H (70-110) mg/dL AST (17-59) U/L C-Reactive Protein (<1.0) mg/dL Total Protein (6.3-8.2) g/dL Albumin (3.5-5.0) g/dL Crossmatch See Detail 06/22/22 06/22/22 06/23/22 Range/Units 18:11 20:01 06:01 WBC 17.1 H (3.8-10.6) k/uL RBC 2.06 L (4.30-5.90) m/uL Hgb 6.0 L* (13.0-17.5) gm/dL Hct 18.9 L* (39.0-53.0) % RDW 18.9 H (11.5-15.5) % Neutrophils # (1.3-7.7) k/uL Eosinophils # (0-0.7) k/uL Chloride (98-107) mmol/L BUN (9-20) mg/dL Creatinine (0.66-1.25) mg/dL Glucose (74-99) mg/dL POC Glucose (mg/dL) 194 H 169 H (70-110) mg/dL AST (17-59) U/L C-Reactive Protein (<1.0) mg/dL Total Protein (6.3-8.2) g/dL Albumin (3.5-5.0) g/dL Crossmatch 06/23/22 06/23/22 Range/Units 08:04 08:04 WBC 19.7 H (3.8-10.6) k/uL RBC 2.12 L (4.30-5.90) m/uL Hgb 6.0 L* (13.0-17.5) gm/dL Hct 19.0 L* (39.0-53.0) % RDW 19.3 H (11.5-15.5) % Neutrophils # 15.4 H (1.3-7.7) k/uL Eosinophils # 0.8 H (0-0.7) k/uL Chloride 109 H (98-107) mmol/L BUN 39 H (9-20) mg/dL Creatinine 1.39 H (0.66-1.25) mg/dL Glucose 142 H (74-99) mg/dL POC Glucose (mg/dL) (70-110) mg/dL AST 14 L (17-59) U/L C-Reactive Protein 1.5 H (<1.0) mg/dL Total Protein 5.7 L (6.3-8.2) g/dL Albumin 2.5 L (3.5-5.0) g/dL Crossmatch Microbiology - Last 24 Hours (Table) 06/17/22 17:40 Anaerobic Culture - Preliminary Leg - Left Anaerobic Gram Positive Cocci Assessment and Plan Plan: 1. Lower extremity cellulitis with elevated white blood cell count and positive wound and blood cultures 2. Noncompliance with medication patient reports he has not been taking his meds in over here and has not seen his PCP in over 2 years 3. History of CVA 4. Morbid obesity 5. History of essential hypertension 6. Diabetes mellitus type 2. Hemoglobin A1c 6.8. Patient has not taken medication in over a year 7. Chronic venous stasis 8. Patient previously on levodopa due to tremors post CVA discussed case with neurologist patient does not require any further medication 9. Anemia with positive occult blood. Plans for EGD on Tuesday per surgical services 10. Hyperkalemia potassium 5.6 11. Acute kidney injury creatinine 1.3 bun 52 on presentation. nephrology services are following DVT prophylaxis SCDs due to anemia Infectious disease consulted for lower extremity cellulitis patient maintained on IV antibiotics Per neurology patient never had the diagnosis of Parkinson's disease does not require any further medication. Recommendations of initiation of aspirin once surgical clearance Patient has been transfused with 8 units of PRBCs EGD completed on 06/21/2022 Tagged RBC scan completed showing findings suggestive of left upper quadrant proximal to mid duodenal GI bleed EGD scheduled with push enteroscopy 06/23/[address] Serrato
[2022-06-23] MEDS ORDERED: VANCOMYCIN 2,500 MG in SODIUM CHLORIDE 0.9% 500 ML 500 ML IVPB ONE (11:00)
[2022-06-23 11:44] LABS: Glucose,Whole Blood 159 mg/dL (70-110)
--- NOTE | 2022-06-23 12:18 | P.PN ---
Subjective Patient is seen in follow-up for acute kidney injury on chronic kidney disease. Patient has chronic kidney disease stage IIIA with baseline creatinine in the range of 1.1 x 1.3 secondary to nephrosclerosis and diabetic kidney disease. Renal function better. Receiving IV fluids. Nonoliguric. Again having melanotic stool. Hemoglobin today is 6.0. Scheduled to receive blood today. EGD also scheduled for today. Vital signs are stable. General: No acute distress. HEENT: Head exam is unremarkable. LUNGS: No audible rhonchi or wheezes. HEART: Rate and Rhythm are regular. ABDOMEN: Soft, obese. EXTREMITITES: Lower extremities wrapped. No drainage. Objective - Vital Signs Vital signs: Vital Signs Temp 98.2 F 06/23/22 11:07 Pulse 83 06/23/22 11:07 Resp 20 06/23/22 11:07 BP 145/62 06/23/22 11:07 Pulse Ox 100 06/23/22 11:07 FiO2 21 06/21/22 08:42 Intake & Output 06/22/22 06/23/22 06/23/22 18:59 06:59 18:59 Intake Total 1190 310 0 Output Total 625 1000 775 Balance 565 -690 -775 Intake: Oral 880 Blood Product 310 310 0 Rc As-1 Unit 310 [id number] Rc As-1 Unit 310 [id number] Rc As-1 Unit 0 [id number] Output: Urine 625 1000 775 Other: Voiding Method Urinal # Voids 1 1 # Bowel Movements 1 1 1 - Labs CBC & Chem 7: 06/23/22 08:04 06/23/22 08:04 Labs: Abnormal Lab Results - Last 24 Hours (Table) 06/22/22 06/22/22 06/22/22 Range/Units 10:32 16:31 18:11 WBC 17.1 H (3.8-10.6) k/uL RBC 2.06 L (4.30-5.90) m/uL Hgb 6.0 L* (13.0-17.5) gm/dL Hct 18.9 L* (39.0-53.0) % RDW 18.9 H (11.5-15.5) % Neutrophils # (1.3-7.7) k/uL Eosinophils # (0-0.7) k/uL Chloride (98-107) mmol/L BUN (9-20) mg/dL Creatinine (0.66-1.25) mg/dL Glucose (74-99) mg/dL POC Glucose (mg/dL) 172 H (70-110) mg/dL AST (17-59) U/L C-Reactive Protein (<1.0) mg/dL Total Protein (6.3-8.2) g/dL Albumin (3.5-5.0) g/dL Crossmatch See Detail 06/22/22 06/23/22 06/23/22 Range/Units 20:01 06:01 08:04 WBC 19.7 H (3.8-10.6) k/uL RBC 2.12 L (4.30-5.90) m/uL Hgb 6.0 L* (13.0-17.5) gm/dL Hct 19.0 L* (39.0-53.0) % RDW 19.3 H (11.5-15.5) % Neutrophils # 15.4 H (1.3-7.7) k/uL Eosinophils # 0.8 H (0-0.7) k/uL Chloride (98-107) mmol/L BUN (9-20) mg/dL Creatinine (0.66-1.25) mg/dL Glucose (74-99) mg/dL POC Glucose (mg/dL) 194 H 169 H (70-110) mg/dL AST (17-59) U/L C-Reactive Protein (<1.0) mg/dL Total Protein (6.3-8.2) g/dL Albumin (3.5-5.0) g/dL Crossmatch 06/23/22 06/23/22 Range/Units 08:04 11:42 WBC (3.8-10.6) k/uL RBC (4.30-5.90) m/uL Hgb (13.0-17.5) gm/dL Hct (39.0-53.0) % RDW (11.5-15.5) % Neutrophils # (1.3-7.7) k/uL Eosinophils # (0-0.7) k/uL Chloride 109 H (98-107) mmol/L BUN 39 H (9-20) mg/dL Creatinine 1.39 H (0.66-1.25) mg/dL Glucose 142 H (74-99) mg/dL POC Glucose (mg/dL) 159 H (70-110) mg/dL AST 14 L (17-59) U/L C-Reactive Protein 1.5 H (<1.0) mg/dL Total Protein 5.7 L (6.3-8.2) g/dL Albumin 2.5 L (3.5-5.0) g/dL Crossmatch Microbiology - Last 24 Hours (Table) 06/17/22 17:40 Anaerobic Culture - Final Leg - Left Anaerobic Gram Positive Cocci Anaerobic Gm Negative Bacilli 06/22/22 08:17 Blood Culture - Preliminary Blood No Growth after 24 hours Assessment and Plan Plan: Assessment: 1. Acute kidney injury secondary to ATN secondary to acute blood loss anemia and sepsis. Vanco level 31.3 dated 04/22/2022. Creatinine 1.39 today. 2. Chronic kidney disease stage IIIa with baseline creatinine 1.1-1.3 secondary to diabetic kidney disease and nephrosclerosis. Trace proteinuria on UA. No hydronephrosis noted on CAT scan. 3. Acute GI bleed status post EGD with further intervention required by GI. Has been receiving blood transfusions. Also received IV DDAVP x2 doses - last dose 06/22/2022. CAT scan showed left upper quadrant proximal to mid jejunal GI bleed. 4. Hyperkalemia secondary to acute kidney injury and GI bleed. Stable. 5. Diabetes mellitus. 6. MRSA bacteremia and lower extremity wounds on antibiotics. ID following. Plan: Maintain IV fluids for now. Avoid nephrotoxins. Monitor vancomycin levels - dose to be adjusted for renal function. Monitor hemoglobin and transfuse as needed. EGD pending. Continue to monitor renal function and urine output.
--- NOTE | 2022-06-23 12:45 | P.PN ---
Subjective Progress Note Date: 06/23/22 Principal diagnosis: anemia At today's visit patient is resting comfortably in bed. He reports feeling okay today. Patient had a tarry stool this morning. He denies abdominal pain nausea vomiting diarrhea. EGD planned today with GI. Hemoglobin 6.0, additional unit of PRBCs has been ordered. No other reported complaints at this time Objective - Vital Signs Vital signs: Vital Signs Temp 98.2 F 06/23/22 11:07 Pulse 83 06/23/22 11:07 Resp 20 06/23/22 11:07 BP 145/62 06/23/22 11:07 Pulse Ox 100 06/23/22 11:07 FiO2 21 06/21/22 08:42 Intake & Output 06/22/22 06/23/22 06/23/22 18:59 06:59 18:59 Intake Total 1190 310 0 Output Total 625 1000 775 Balance 239 -980 -802 Intake: Oral 880 Blood Product 310 310 0 Rc As-1 Unit 310 [id number] Rc As-1 Unit 310 [id number] Rc As-1 Unit 0 [id number] Output: Urine 625 1000 775 Other: Voiding Method Urinal # Voids 1 1 # Bowel Movements 1 1 1 - Constitutional General appearance: Present: no acute distress, obese - EENT Eyes: Present: anicteric sclerae, EOMI ENT: Present: hearing grossly normal - Respiratory Details: Breathing is even and unlabored - Cardiovascular Details: Skin is warm and dry - Integumentary Integumentary: Present: pale - Musculoskeletal Musculoskeletal: Present: generalized weakness - Psychiatric Psychiatric: Present: A&O x's 3, appropriate affect, intact judgment & insight - Labs CBC & Chem 7: 06/23/22 08:04 06/23/22 08:04 Labs: Abnormal Lab Results - Last 24 Hours (Table) 06/22/22 06/22/22 06/22/22 Range/Units 10:32 16:31 18:11 WBC 17.1 H (3.8-10.6) k/uL RBC 2.06 L (4.30-5.90) m/uL Hgb 6.0 L* (13.0-17.5) gm/dL Hct 18.9 L* (39.0-53.0) % RDW 18.9 H (11.5-15.5) % Neutrophils # (1.3-7.7) k/uL Eosinophils # (0-0.7) k/uL Chloride (98-107) mmol/L BUN (9-20) mg/dL Creatinine (0.66-1.25) mg/dL Glucose (74-99) mg/dL POC Glucose (mg/dL) 172 H (70-110) mg/dL AST (17-59) U/L C-Reactive Protein (<1.0) mg/dL Total Protein (6.3-8.2) g/dL Albumin (3.5-5.0) g/dL Crossmatch See Detail 06/22/22 06/23/22 06/23/22 Range/Units 20:01 06:01 08:04 WBC 19.7 H (3.8-10.6) k/uL RBC 2.12 L (4.30-5.90) m/uL Hgb 6.0 L* (13.0-17.5) gm/dL Hct 19.0 L* (39.0-53.0) % RDW 19.3 H (11.5-15.5) % Neutrophils # 15.4 H (1.3-7.7) k/uL Eosinophils # 0.8 H (0-0.7) k/uL Chloride (98-107) mmol/L BUN (9-20) mg/dL Creatinine (0.66-1.25) mg/dL Glucose (74-99) mg/dL POC Glucose (mg/dL) 194 H 169 H (70-110) mg/dL AST (17-59) U/L C-Reactive Protein (<1.0) mg/dL Total Protein (6.3-8.2) g/dL Albumin (3.5-5.0) g/dL Crossmatch 06/23/22 06/23/22 Range/Units 08:04 11:42 WBC (3.8-10.6) k/uL RBC (4.30-5.90) m/uL Hgb (13.0-17.5) gm/dL Hct (39.0-53.0) % RDW (11.5-15.5) % Neutrophils # (1.3-7.7) k/uL Eosinophils # (0-0.7) k/uL Chloride 109 H (98-107) mmol/L BUN 39 H (9-20) mg/dL Creatinine 1.39 H (0.66-1.25) mg/dL Glucose 142 H (74-99) mg/dL POC Glucose (mg/dL) 159 H (70-110) mg/dL AST 14 L (17-59) U/L C-Reactive Protein 1.5 H (<1.0) mg/dL Total Protein 5.7 L (6.3-8.2) g/dL Albumin 2.5 L (3.5-5.0) g/dL Crossmatch Microbiology - Last 24 Hours (Table) 06/17/22 17:40 Anaerobic Culture - Final Leg - Left Anaerobic Gram Positive Cocci Anaerobic Gm Negative Bacilli 06/22/22 08:17 Blood Culture - Preliminary Blood No Growth after 24 hours Assessment and Plan (1) Anemia Current Visit: Yes Status: Acute Code(s): D64.9 - ANEMIA, UNSPECIFIED SNOMED Code(s): 230755607 (2) Bilateral lower leg cellulitis Current Visit: Yes Status: Acute Code(s): L03.116 - CELLULITIS OF LEFT LOWER LIMB; L03.115 - CELLULITIS OF RIGHT LOWER LIMB SNOMED Code(s): 592164827 (3) Bacteremia Current Visit: No Status: Acute Code(s): R78.81 - BACTEREMIA SNOMED Code(s): 7884405 Plan: Anemia: -Hemoglobin has ranged from 5.1-7.6 during admission and has received 7 units of PRBCs. Hemoglobin 6.0 today, additional unit PRBCs was ordered. Iron studies revealed, iron 29, iron saturation 9.5%, and ferritin 41. Vitamin B12 and folate were low. Vitamin B12 and folate supplementation ordered. Will hold IV iron infusion at this time due to acute infection. -Tagged RBC scan showed a left upper quadrant to mid jejunal GI bleed. GI and surgery have been consulted. EGD scheduled today with GI. -Please continue to hold aspirin -Anemia likely related to acute GI bleed superimposed by chronic inflammation -Will continue to monitor counts. Please transfuse for hemoglobin less than 7 or symptomatic Bactermia/BLE wounds: -Blood cultures and wound culture positive. Pt continues on cefepime and vancomycin -Defer management to IM/ID team
[2022-06-23 14:03] LABS: Erythrocyte Sedimentation Rate 93 mm/hr (0-15)
[2022-06-23] MEDS ORDERED: LIDOCAINE 2% INJ 20 MG/ML (2 ML VIAL) ONE (14:10)
[2022-06-23] MEDS ORDERED: PROPOFOL 10 MG/ML 20 ML VIAL IV ONE (14:10)
[2022-06-23] MEDS ORDERED: SODIUM CHLORIDE 0.9% 500 ML 500 ML IV ONE (14:29)
--- NOTE | 2022-06-23 14:31 | P.PCN ---
Date of Procedure: 06/23/22 Procedure(s) Performed: BRIEF HISTORY: Patient is a 56-year-old, pleasant, white male admitted hospital with bilateral lower extremity cellulitis. Since being in the hospital has been having black tarry stools. He dropped hemoglobin to 6 g/dL requiring total of 8 units of the obesity transfusion in the last 4 days. He was initially evaluated by Dr. Godoy and he had an upper endoscopy done 2 days ago revealed significant amount of retained food in the stomach with some old blood. Subsequently he had tagged RBC scan done that showed active oozing in the left upper quadrant area. His and scheduled for an upper endoscopy with a push enteroscopy today.. PROCEDURE PERFORMED: Esophagogastroduodenoscopy/push enteroscopy. PREOPERATIVE DIAGNOSIS: Acute GI bleed. IV sedation per anesthesia. PROCEDURE: After informed consent was obtained, the patient was brought into the endoscopy unit. IV sedation was administered by Anesthesia under continuous monitoring. Initially the Olympus GIF-140 video pediatric colonoscopy was inserted into the mouth. Esophagus intubated without any difficulty. It was gradually advanced into the stomach and duodenum and proximal jejunum and carefully examined. No active bleeding identified. The scope was advanced at least 80 cm in the proximal jejunum and there was no active bleeding identified. There was no mucosal pathology identified. All 4 part of the duodenum appeared normal. The scope at this time was withdrawn to the stomach, adequately insuff lated with air, and upon careful examination, mucosa of the antrum, body, cardia and the fundus appeared normal. Mild gastritis seen. No active bleeding noted. The scope was then withdrawn into the esophagus. The GE junction was located at 39 cm from the incisors. The esophagus appeared normal. There were no erosions or ulcerations seen and the patient tolerated the procedure well. IMPRESSION: 1. No evidence of active upper GI bleed up in the proximal jejunum. 2. Mild gastritis. RECOMMENDATIONS: The findings of this examination were discussed with the patient. At this time he will be scheduled for colonoscopy tomorrow to investigate further. He will remain on a clear liquid diet today. Monitor CBC every 12 hours and transfuse as needed..
[2022-06-23] MEDS: ONDANSETRON 4 MG/2 ML VIAL IVP PRN (14:48)
--- NOTE | 2022-06-23 14:55 | P.PN ---
Subjective Progress Note Date: 06/23/22 CHIEF COMPLAINT: Anemia HISTORY OF PRESENT ILLNESS: Patient is status post EGD had shown moderate retained food with blood and unclear to assess acute bleeding. GI consulted for intervention due to acute GI bleed. Tagged RBC scan had showed findings suggest left upper quadrant proximal to mid jejunal GI bleed. Patient had EGD with push enteroscopy with Dr. Bernard. No evidence of active upper GI bleed in the proximal jejunum. Mild gastritis. They're planning to schedule patient for colonoscopy tomorrow. Patient continues to have black stools. Patient receiving another unit of blood today. He has received a total of 8 units of blood during his hospitalization. Vital stable. WBC is 19.7 Hgb 6 plt 296 sodium is 139 potassium 5 creatinine 1.3 PHYSICAL EXAM: VITAL SIGNS: Reviewed GENERAL: Well-developed in no acute distress. HEENT: No sclera icterus. Extraocular movements grossly intact. Moist buccal mucosa. Head is atraumatic, normocephalic. Hears conversational speech. No nasal drainage. NECK: Supple without lymphadenopathy. CHEST: Non-labored respirations and equal bilateral excursions. CARDIOVASCULAR: Palpable 2+ radial pulses. ABDOMEN: Soft. Obese. Nondistended. Nontender. MUSCULOSKELETAL: No clubbing or cyanosis. NEUROLOGIC: No focal or lateralizing signs. Cranial nerves II through XII grossly intact. PSYCH: Appropriate affect. Alert and oriented to person, place and time. SKIN: Well perfused. Good skin turgor. ASSESSMENT: 1. Anemia with black stools 2. Tagged RBC scan with findings to assess left upper quadrant proximal to mid jejunal GI bleed 3. Morbid obesity 4. Moderate retained gastric food on EGD PLAN: -Colonoscopy tomorrow with GI service -Continue Protonix -Continue supportive -Surgical service on standby Physician Eviction Specialist note has been reviewed by physician. Signing provider agrees with the documented findings, assessment, and plan of care. CHIEF COMPLAINT: Anemia HISTORY OF PRESENT ILLNESS: The patient is a 56 year old male admitted to the hospital due to weakness. He has GI bleed with melena. He has more than 2 u PRBCs, now 8 units transfusion during hospitalization. He denies abdominal pain. REVIEW OF ORGAN SYSTEMS: CONSTITUTIONAL: No fevers or chills. No recent weight loss. Morbid obesity, BMI 58.8 RESPIRATORY: He has obstructive sleep apnea. CARDIOVASCULAR: Has coronary artery disease. Has congestive heart failure. Has venous stasis disease. GASTROINTESTINAL: Has dark stools. Has diarrhea. SKIN: Has severe bilateral venous stasis disease of the lower extremities. PHYSICAL EXAM: VITALS: Reviewed CONSTITUTIONAL: Well developed and in no acute distress. EYES: Conjuctivae without sclera icterus. Extraocular movements grossly intact. HEAD, EARS, NOSE, THROAT: Moist buccal mucosa. Head is atraumatic, normocephalic. Hears conversational speech. No nasal drainage. RESPIRATORY: Non-labored respirations and equal bilateral excursions. No gross wheezes. CARDIOVASCULAR: Palpable 2+ radial pulses. ABDOMEN: Obese. No peritonitis MUSCULOSKELETAL: Bilateral foot dressings present SKIN: Warm and well perfused with good skin turgor. NEUROLOGIC: Cranial nerves II through XII grossly intact. No focal or lateralizing signs. PSYCH: Lethargic CLINCAL LABS: Reviewed. WBC elevated. Hemoglobin 6.2, anemia, now 5.8, up to 7.1, now 6.0 REPORTS: EGD performed without acute bleeding. ASSESSMENT: 1. Anemia 2. Bilateral venous stasis disease 3. Morbid obesity due to excess calories, BMI 58.8 4. Chronic venous stasis disease 5. Leukocytosis 6. Chronic renal disease 7. GI bleed with melena PLAN: 1. GI work-up pending for GI bleed. Colonoscopy pending 2. Continue transfusions as needed for symptomatic anemia. Objective - Vital Signs Vital signs: Vital Signs Temp 98.1 F 06/23/22 13:23 Pulse 73 06/23/22 13:23 Resp 18 06/23/22 13:23 BP 114/55 06/23/22 13:23 Pulse Ox 99 06/23/22 13:23 FiO2 21 06/21/22 08:42 Intake & Output 06/22/22 06/23/22 06/23/22 18:59 06:59 18:59 Intake Total 1190 310 510 Output Total 625 1000 1025 Balance 565 690 -515 Intake: IV 200 Oral 880 Blood Product 310 310 310 Rc As-1 Unit 310 [id number] Rc As-1 Unit 310 [id number] Rc As-1 Unit 310 [id number] Output: Urine 625 1000 1025 Other: Voiding Method Urinal Urinal # Voids 1 1 # Bowel Movements 1 1 1 - Labs CBC & Chem 7: 06/24/22 11:18 06/24/22 11:18 Labs: Abnormal Lab Results - Last 24 Hours (Table) 06/22/22 06/22/22 06/22/22 Range/Units 10:32 16:31 18:11 WBC 17.1 H (3.8-10.6) k/uL RBC 2.06 L (4.30-5.90) m/uL Hgb 6.0 L* (13.0-17.5) gm/dL Hct 18.9 L* (39.0-53.0) % RDW 18.9 H (11.5-15.5) % Neutrophils # (1.3-7.7) k/uL Eosinophils # (0-0.7) k/uL ESR (0-15) mm/hr Chloride (98-107) mmol/L BUN (9-20) mg/dL Creatinine (0.66-1.25) mg/dL Glucose (74-99) mg/dL POC Glucose (mg/dL) 172 H (70-110) mg/dL AST (17-59) U/L C-Reactive Protein (<1.0) mg/dL Total Protein (6.3-8.2) g/dL Albumin (3.5-5.0) g/dL Crossmatch See Detail 06/22/22 06/23/22 06/23/22 Range/Units 20:01 06:01 08:04 WBC 19.7 H (3.8-10.6) k/uL RBC 2.12 L (4.30-5.90) m/uL Hgb 6.0 L* (13.0-17.5) gm/dL Hct 19.0 L* (39.0-53.0) % RDW 19.3 H (11.5-15.5) % Neutrophils # 15.4 H (1.3-7.7) k/uL Eosinophils # 0.8 H (0-0.7) k/uL ESR 93 H (0-15) mm/hr Chloride (98-107) mmol/L BUN (9-20) mg/dL Creatinine (0.66-1.25) mg/dL Glucose (74-99) mg/dL POC Glucose (mg/dL) 194 H 169 H (70-110) mg/dL AST (17-59) U/L C-Reactive Protein (<1.0) mg/dL Total Protein (6.3-8.2) g/dL Albumin (3.5-5.0) g/dL Crossmatch 06/23/22 06/23/22 Range/Units 08:04 11:42 WBC (3.8-10.6) k/uL RBC (4.30-5.90) m/uL Hgb (13.0-17.5) gm/dL Hct (39.0-53.0) % RDW (11.5-15.5) % Neutrophils # (1.3-7.7) k/uL Eosinophils # (0-0.7) k/uL ESR (0-15) mm/hr Chloride 109 H (98-107) mmol/L BUN 39 H (9-20) mg/dL Creatinine 1.39 H (0.66-1.25) mg/dL Glucose 142 H (74-99) mg/dL POC Glucose (mg/dL) 159 H (70-110) mg/dL AST 14 L (17-59) U/L C-Reactive Protein 1.5 H (<1.0) mg/dL Total Protein 5.7 L (6.3-8.2) g/dL Albumin 2.5 L (3.5-5.0) g/dL Crossmatch Microbiology - Last 24 Hours (Table) 06/17/22 17:40 Anaerobic Culture - Final Leg - Left Anaerobic Gram Positive Cocci Anaerobic Gm Negative Bacilli 06/22/22 08:17 Blood Culture - Preliminary Blood No Growth after 24 hours
[2022-06-23 16:26] LABS: Glucose,Whole Blood 139 mg/dL (70-110)
--- NOTE | 2022-06-23 16:26 | P.PN ---
Subjective Progress Note Date: 06/23/22 Principal diagnosis: Bilateral lower extremity ulcers cellulitis and bacteremia Patient is a 56-year male with a past medical history significant for CVA TIA coronary disease heart failure patient did have a history of bilateral lower extremity venous stasis ulcer, presented to hospital with weakness and syncopal episode patient did have worsening of bilateral lower extremity wound and cellulitis and did have evidence of bacteremia. Patient is status post EGD on 06/23/2022 with no source of bleeding On today's evaluation that is 06/23/2022, the patient continues to be afebrile, the patient is breathing comfortably currently on 2L nasal cannula oxygen, the patient denies chest pain or shortness of breath, the patient did have occasional dry cough some nausea but no vomiting no abdominal pain or any worsening pain to the Lower extremity Objective - Vital Signs Vital signs: Vital Signs Temp 98.1 F 06/23/22 13:23 Pulse 73 06/23/22 13:23 Resp 18 06/23/22 13:23 BP 114/55 06/23/22 13:23 Pulse Ox 99 06/23/22 13:23 FiO2 21 06/21/22 08:42 Intake & Output 06/22/22 06/23/22 06/23/22 18:59 06:59 18:59 Intake Total 1190 310 510 Output Total 625 1000 1025 Balance 565 -690 -515 Intake: IV 200 Oral 880 Blood Product 310 310 310 Rc As-1 Unit 310 [id number] Rc As-1 Unit 310 [id number] Rc As-1 Unit 310 [id number] Output: Urine 625 1000 1025 Other: Voiding Method Urinal Urinal # Voids 1 1 # Bowel Movements 1 1 1 - Exam GENERAL DESCRIPTION: A middle-age male lying in bed in no distress RESPIRATORY SYSTEM: Unlabored breathing , decreased breath sounds at bases HEART: S1 S2 regular rate and rhythm , ABDOMEN: Soft , no tenderness EXTREMITIES: Bilateral lower extremity currently wrapped no drainage on the dr miguel - Labs CBC & Chem 7: 06/23/22 08:04 06/23/22 08:04 Labs: Abnormal Lab Results - Last 24 Hours (Table) 06/22/22 06/22/22 06/22/22 Range/Units 10:32 16:31 18:11 WBC 17.1 H (3.8-10.6) k/uL RBC 2.06 L (4.30-5.90) m/uL Hgb 6.0 L* (13.0-17.5) gm/dL Hct 18.9 L* (39.0-53.0) % RDW 18.9 H (11.5-15.5) % Neutrophils # (1.3-7.7) k/uL Eosinophils # (0-0.7) k/uL ESR (0-15) mm/hr Chloride (98-107) mmol/L BUN (9-20) mg/dL Creatinine (0.66-1.25) mg/dL Glucose (74-99) mg/dL POC Glucose (mg/dL) 172 H (70-110) mg/dL AST (17-59) U/L C-Reactive Protein (<1.0) mg/dL Total Protein (6.3-8.2) g/dL Albumin (3.5-5.0) g/dL Crossmatch See Detail 06/22/22 06/23/22 06/23/22 Range/Units 20:01 06:01 08:04 WBC 19.7 H (3.8-10.6) k/uL RBC 2.12 L (4.30-5.90) m/uL Hgb 6.0 L* (13.0-17.5) gm/dL Hct 19.0 L* (39.0-53.0) % RDW 19.3 H (11.5-15.5) % Neutrophils # 15.4 H (1.3-7.7) k/uL Eosinophils # 0.8 H (0-0.7) k/uL ESR 93 H (0-15) mm/hr Chloride (98-107) mmol/L BUN (9-20) mg/dL Creatinine (0.66-1.25) mg/dL Glucose (74-99) mg/dL POC Glucose (mg/dL) 194 H 169 H (70-110) mg/dL AST (17-59) U/L C-Reactive Protein (<1.0) mg/dL Total Protein (6.3-8.2) g/dL Albumin (3.5-5.0) g/dL Crossmatch 04/19/23 04/19/23 Range/Units 08:04 11:42 WBC (3.8-10.6) k/uL RBC (4.30-5.90) m/uL Hgb (13.0-17.5) gm/dL Hct (39.0-53.0) % RDW (11.5-15.5) % Neutrophils # (1.3-7.7) k/uL Eosinophils # (0-0.7) k/uL ESR (0-15) mm/hr Chloride 109 H (98-107) mmol/L BUN 39 H (9-20) mg/dL Creatinine 1.39 H (0.66-1.25) mg/dL Glucose 142 H (74-99) mg/dL POC Glucose (mg/dL) 159 H (70-110) mg/dL AST 14 L (17-59) U/L C-Reactive Protein 1.5 H (<1.0) mg/dL Total Protein 5.7 L (6.3-8.2) g/dL Albumin 2.5 L (3.5-5.0) g/dL Crossmatch Microbiology - Last 24 Hours (Table) 06/17/22 17:40 Anaerobic Culture - Final Leg - Left Anaerobic Gram Positive Cocci Anaerobic Gm Negative Bacilli 06/22/22 08:17 Blood Culture - Preliminary Blood No Growth after 24 hours Assessment and Plan (1) Bacteremia Current Visit: Yes Status: Acute Code(s): R78.81 - BACTEREMIA SNOMED Code(s): 8770106 (2) Bilateral lower leg cellulitis Current Visit: Yes Status: Acute Code(s): L03.116 - CELLULITIS OF LEFT LOWER LIMB; L03.115 - CELLULITIS OF RIGHT LOWER LIMB SNOMED Code(s): 269937909 Plan: 1patient with bilateral lower extremity venous stasis ulcer and a component of cellulitis likely from gram-positive skin ani such as strep or Staph aureus 2-patient with MRSA bacteremia likely related to bilateral extremity wound and cellulitis, blood cultures growing MRSA and Streptococcus along with a copious negative staph, the patient local wound culture from the leg wounds are growing MRSA Morganella and anaerobe and gram-negative bacilli 3-patient to continue with vancomycin, cefepime and Flagyl , blood cultures has been repeated to document clearance of his bacteremia, monitor clinical course closely Time with Patient: Less than 30
[2022-06-23] MEDS: HYDROmorphone 0.5 MG/0.5 ML SYRINGE IVP PRN (16:46)
[2022-06-23] MEDS ORDERED: PEG 3350 (236 GM/BTL) + LYTES 4,000 ML BOTTLE PO ONE (17:00)
[2022-06-23 20:04] LABS: Glucose,Whole Blood 133 mg/dL (70-110)
[2022-06-24 06:52] LABS: Glucose,Whole Blood 132 mg/dL (70-110)
[2022-06-24 06:56] LABS: Methylmalonic Acid 0.54 umol/L (<0.40)
[2022-06-24] MEDS: SODIUM CHLORIDE 0.9% 1,000 ML IV SCH ×2 (08:13→19:43)
[2022-06-24] MEDS: INSULIN ASPART (NovoLOG) 100 UNIT/ML VIAL SQ SCH ×4 (08:14→20:31)
[2022-06-24] MEDS: PANTOPRAZOLE 40 MG/10 ML VIAL IVP SCH ×2 (08:46→20:31)
[2022-06-24] MEDS: metroNIDAZOLE 500 MG TAB PO SCH ×3 (08:46→20:31)
[2022-06-24] MEDS: FOLIC ACID 1 MG TAB PO SCH (08:46)
[2022-06-24] MEDS: CEFEPIME 2 GM in SODIUM CHLORIDE 0.9% 100 ML IVPB SCH ×2 (08:46→20:32)
[2022-06-24] MEDS: CYANOCOBALAMIN 1,000 MCG/ML 1 ML VIAL IM SCH (08:46)
--- NOTE | 2022-06-24 11:32 | P.PN ---
Subjective Progress Note Date: 06/24/22 CHIEF COMPLAINT: Anemia HISTORY OF PRESENT ILLNESS: Patient is status post EGD had shown moderate retained food with blood and unclear to assess acute bleeding. GI consulted for intervention due to acute GI bleed. Tagged RBC scan had showed findings suggest left upper quadrant proximal to mid jejunal GI bleed. Patient had EGD with push enteroscopy with Dr. Serrato. No evidence of active upper GI bleed in the proximal jejunum. Mild gastritis. They're planning to schedule patient for colonoscopy today. Patient still having black stools. Labs pending PHYSICAL EXAM: VITAL SIGNS: Reviewed GENERAL: Well-developed in no acute distress. HEENT: No sclera icterus. Extraocular movements grossly intact. Moist buccal mucosa. Head is atraumatic, normocephalic. Hears conversational speech. No nasal drainage. NECK: Supple without lymphadenopathy. CHEST: Non-labored respirations and equal bilateral excursions. CARDIOVASCULAR: Palpable 2+ radial pulses. ABDOMEN: Soft. Obese. Nondistended. Nontender. MUSCULOSKELETAL: No clubbing or cyanosis. NEUROLOGIC: No focal or lateralizing signs. Cranial nerves II through XII grossly intact. PSYCH: Appropriate affect. Alert and oriented to person, place and time. SKIN: Well perfused. Good skin turgor. ASSESSMENT: 1. Anemia with black stools 2. Tagged RBC scan with findings to assess left upper quadrant proximal to mid jejunal GI bleed. No bleeding on EGD 3. Morbid obesity 4. Moderate retained gastric food on EGD PLAN: -Colonoscopy today with GI service -Continue Protonix -Continue to monitor hemoglobin and transfuse as needed -Continue supportive -Surgical service on standby Physician Social Work Supervisor note has been reviewed by physician. Signing provider agrees with the documented findings, assessment, and plan of care. CHIEF COMPLAINT: Anemia HISTORY OF PRESENT ILLNESS: The patient is a 56 year old male admitted to the hospital due to weakness. He has received multiple transfusions during hospitalization. Colonoscopy performed per GI. REVIEW OF ORGAN SYSTEMS: CONSTITUTIONAL: No fevers or chills. No recent weight loss. Morbid obesity, BMI 58.8 RESPIRATORY: He has obstructive sleep apnea. CARDIOVASCULAR: Has coronary artery disease. Has congestive heart failure. Has venous stasis disease. GASTROINTESTINAL: Has dark stools. Has diarrhea. SKIN: Has severe bilateral venous stasis disease of the lower extremities. PHYSICAL EXAM: VITALS: Reviewed CONSTITUTIONAL: Well developed and in no acute distress. EYES: Conjuctivae without sclera icterus. Extraocular movements grossly intact. HEAD, EARS, NOSE, THROAT: Moist buccal mucosa. Head is atraumatic, normocephalic. Hears conversational speech. No nasal drainage. RESPIRATORY: Non-labored respirations and equal bilateral excursions. No gross wheezes. CARDIOVASCULAR: Palpable 2+ radial pulses. ABDOMEN: Obese. No peritonitis MUSCULOSKELETAL: Bilateral foot dressings present SKIN: Warm and well perfused with good skin turgor. NEUROLOGIC: Cranial nerves II through XII grossly intact. No focal or lateralizing signs. PSYCH: Lethargic CLINCAL LABS: Reviewed. WBC elevated. Hemoglobin 6.8, anemia REPORTS: Colonoscopy performed without acute bleeding. ASSESSMENT: 1. Anemia with melena 2. Bilateral venous stasis disease 3. Morbid obesity due to excess calories, BMI 58.8 4. Chronic venous stasis disease 5. Leukocytosis 6. Chronic renal disease 7. GI bleed with melena PLAN: 1. EGD and colonoscopy completed without source of bleed. 2. Recommend pill endoscopy Objective - Vital Signs Vital signs: Vital Signs Temp 96.8 F L 06/24/22 08:45 Pulse 90 06/24/22 08:45 Resp 18 06/24/22 08:45 BP 123/68 06/24/22 08:45 Pulse Ox 100 06/24/22 08:45 FiO2 21 06/21/22 08:42 Intake & Output 06/23/22 06/24/22 06/24/22 18:59 06:59 18:59 Intake Total 510 310 Output Total 1225 1000 Balance -715 -690 Intake: IV 200 Blood Product 310 310 Rc As-1 Unit 0 310 [id number] Rc As-1 Unit 310 [id number] Output: Urine 1225 1000 Other: Voiding Method Urinal Urinal # Voids 1 # Bowel Movements 1 1 - Labs CBC & Chem 7: 06/24/22 11:18 06/24/22 11:18 Labs: Abnormal Lab Results - Last 24 Hours (Table) 06/22/22 06/22/22 06/23/22 Range/Units 09:38 10:32 08:04 ESR 93 H (0-15) mm/hr POC Glucose (mg/dL) (70-110) mg/dL Methylmalonic Acid 0.54 H (<0.40) umol/L Crossmatch See Detail 06/23/22 06/23/22 06/23/22 Range/Units 11:42 16:18 20:02 ESR (0-15) mm/hr POC Glucose (mg/dL) 159 H 139 H 133 H (70-110) mg/dL Methylmalonic Acid (<0.40) umol/L Crossmatch 06/24/22 Range/Units 06:49 ESR (0-15) mm/hr POC Glucose (mg/dL) 132 H (70-110) mg/dL Methylmalonic Acid (<0.40) umol/L Crossmatch Microbiology - Last 24 Hours (Table) 06/22/22 08:17 Blood Culture - Preliminary Blood No Growth after 48 hours 06/17/22 17:40 Blood Culture Gram Stain - Final Blood Blood Culture - Final Methicillin resist S. aureus Strep agalactiae - (group b) Staph hominis sub sp. hominis 06/17/22 17:40 Blood Culture Gram Stain - Final Blood Blood Culture - Final Staphylococcus aureus Strep agalactiae - (group b) Staphylococcus epidermidis Staph hominis sub sp. hominis 06/17/22 17:40 Anaerobic Culture - Final Leg - Left Anaerobic Gram Positive Cocci Anaerobic Gm Negative Bacilli
[2022-06-24 11:35] LABS: Anisocytosis Slight; Basophils # (A) 0.1 k/uL (0-0.2); Basophils % (A) 0 %; Eosinophils # (A) 0.7 k/uL (0-0.7); Eosinophils % (A) 4 %; HCT 21.1 % (39.0-53.0); Hypochromasia Moderate; Lymphocytes # (A) 1.8 k/uL (1.0-4.8); Lymphocytes % (A) 10 %; MCHC 32.2 g/dL (31.0-37.0); MCV 90.1 fL (80.0-100.0); Mean Platelet Volume 8.8; Monocytes % (A) 6 %; Neutrophils # (A) 13.8 k/uL (1.3-7.7); Neutrophils % (A) 77 %; Platelet Count 286 k/uL (150-450); Poikilocytosis Moderate; RBC 2.34 m/uL (4.30-5.90); RDW 18.7 % (11.5-15.5); WBC 17.8 k/uL (3.8-10.6)
[2022-06-24 11:43] LABS: Glucose,Whole Blood 151 mg/dL (70-110)
[2022-06-24 11:45] LABS: Albumin 2.5 g/dL (3.5-5.0); Calcium 8.2 mg/dL (8.4-10.2); Magnesium 1.9 mg/dL (1.6-2.3); Potassium 4.1 mmol/L (3.5-5.1); Total Bilirubin 0.3 mg/dL (0.2-1.3); Total Protein 5.6 g/dL (6.3-8.2)
[2022-06-24] MEDS ORDERED: PROPOFOL 10 MG/ML 20 ML VIAL IV ONE (12:04)
[2022-06-24 12:09] LABS: HGB 6.8 gm/dL (13.0-17.5)
--- NOTE | 2022-06-24 12:37 | P.PN ---
Subjective Patient is seen in follow-up for acute kidney injury on chronic kidney disease. Patient has chronic kidney disease stage IIIA with baseline creatinine in the range of 1.1-1.3 secondary to nephrosclerosis and diabetic kidney disease. Renal function near baseline. Receiving IV fluids. Nonoliguric. Continues to have dark bowel movements. Hemoglobin today is 6.8. Has received 10 units of blood this admission. EGD done 06/23/2022 showed no evidence of active upper GI bleed. Colonoscopy pending. Vital signs are stable. General: No acute distress. HEENT: Head exam is unremarkable. LUNGS: No audible rhonchi or wheezes. HEART: Rate and Rhythm are regular. ABDOMEN: Soft, obese. EXTREMITITES: Lower extremities wrapped. No drainage. Objective - Vital Signs Vital signs: Vital Signs Temp 96.8 F L 06/24/22 08:45 Pulse 90 06/24/22 08:45 Resp 18 06/24/22 08:45 BP 123/68 06/24/22 08:45 Pulse Ox 100 06/24/22 08:45 FiO2 21 06/21/22 08:42 Intake & Output 06/23/22 06/24/22 06/24/22 18:59 06:59 18:59 Intake Total 510 310 Output Total 1225 1000 Balance -715 -690 Intake: IV 200 Blood Product 310 310 Rc As-1 Unit 0 310 [id number] Rc As-1 Unit 310 [id number] Output: Urine 1225 1000 Other: Voiding Method Urinal Urinal Urinal # Voids 1 # Bowel Movements 1 1 - Labs CBC & Chem 7: 06/24/22 11:18 06/24/22 11:18 Labs: Abnormal Lab Results - Last 24 Hours (Table) 06/22/22 06/22/22 06/23/22 Range/Units 09:38 10:32 08:04 WBC (3.8-10.6) k/uL RBC (4.30-5.90) m/uL Hgb (13.0-17.5) gm/dL Hct (39.0-53.0) % RDW (11.5-15.5) % Neutrophils # (1.3-7.7) k/uL ESR 93 H (0-15) mm/hr Chloride (98-107) mmol/L BUN (9-20) mg/dL Creatinine (0.66-1.25) mg/dL Glucose (74-99) mg/dL POC Glucose (mg/dL) (70-110) mg/dL Calcium (8.4-10.2) mg/dL Total Protein (6.3-8.2) g/dL Albumin (3.5-5.0) g/dL Methylmalonic Acid 0.54 H (<0.40) umol/L Crossmatch See Detail 06/23/22 06/23/22 06/24/22 Range/Units 16:18 20:02 06:49 WBC (3.8-10.6) k/uL RBC (4.30-5.90) m/uL Hgb (13.0-17.5) gm/dL Hct (39.0-53.0) % RDW (11.5-15.5) % Neutrophils # (1.3-7.7) k/uL ESR (0-15) mm/hr Chloride (98-107) mmol/L BUN (9-20) mg/dL Creatinine (0.66-1.25) mg/dL Glucose (74-99) mg/dL POC Glucose (mg/dL) 139 H 133 H 132 H (70-110) mg/dL Calcium (8.4-10.2) mg/dL Total Protein (6.3-8.2) g/dL Albumin (3.5-5.0) g/dL Methylmalonic Acid (<0.40) umol/L Crossmatch 06/24/22 06/24/22 06/24/22 Range/Units 11:18 11:18 11:42 WBC 17.8 H (3.8-10.6) k/uL RBC 2.34 L (4.30-5.90) m/uL Hgb 6.8 L* (13.0-17.5) gm/dL Hct 21.1 L (39.0-53.0) % RDW 18.7 H (11.5-15.5) % Neutrophils # 13.8 H (1.3-7.7) k/uL ESR (0-15) mm/hr Chloride 109 H (98-107) mmol/L BUN 37 H (9-20) mg/dL Creatinine 1.31 H (0.66-1.25) mg/dL Glucose 134 H (74-99) mg/dL POC Glucose (mg/dL) 151 H (70-110) mg/dL Calcium 8.2 L (8.4-10.2) mg/dL Total Protein 5.6 L (6.3-8.2) g/dL Albumin 2.5 L (3.5-5.0) g/dL Methylmalonic Acid (<0.40) umol/L Crossmatch Microbiology - Last 24 Hours (Table) 06/22/22 08:17 Blood Culture - Preliminary Blood No Growth after 48 hours 06/17/22 17:40 Blood Culture Gram Stain - Final Blood Blood Culture - Final Methicillin resist S. aureus Strep agalactiae - (group b) Staph hominis sub sp. hominis 06/17/22 17:40 Blood Culture Gram Stain - Final Blood Blood Culture - Final Staphylococcus aureus Strep agalactiae - (group b) Staphylococcus epidermidis Staph hominis sub sp. hominis 06/17/22 17:40 Anaerobic Culture - Final Leg - Left Anaerobic Gram Positive Cocci Anaerobic Gm Negative Bacilli Assessment and Plan Plan: Assessment: 1. Acute kidney injury secondary to ATN secondary to acute blood loss anemia and sepsis. Vanco level 31.3 dated 04/22/2022. Creatinine 1.31 today. 2. Chronic kidney disease stage IIIa with baseline creatinine 1.1-1.3 secondary to diabetic kidney disease and nephrosclerosis. Trace proteinuria on UA. No hydronephrosis noted on CAT scan. 3. Acute GI bleed status post EGD with further intervention required by GI. Has been receiving blood transfusions. Also received IV DDAVP x2 doses - last dose 06/22/2022. CAT scan showed left upper quadrant proximal to mid jejunal GI bleed. EGD showed no evidence of active upper GI bleed. Colonoscopy pending. 4. Hyperkalemia secondary to acute kidney injury and GI bleed. Stable. 5. Diabetes mellitus. 6. MRSA bacteremia and lower extremity wounds on antibiotics. ID following. Plan: Maintain IV fluids for now. Avoid nephrotoxins. Monitor vancomycin levels - dose to be adjusted for renal function. Monitor hemoglobin and transfuse as needed. Continue to monitor renal function and urine output.
[2022-06-24] MEDS ORDERED: IV FLUID CONTINUATION 1,000 ML IV ONE (13:20)
--- NOTE | 2022-06-24 13:26 | P.PCN ---
Date of Procedure: 06/24/22 Procedure(s) Performed: BRIEF HISTORY: Patient is a 56-year-old pleasant white male admitted hospital with bilateral lower extremity cellulitis. While in the hospital he started having multiple episodes of maroon-colored and black tarry stools. He had an upper endoscopy done by Dr. Kelly 3 years ago that revealed retained food in the stomach with questionable upper GI bleed. He had a repeat upper endoscopy done yesterday with a small bowel push enteroscopy and there was no source of bleeding identified and the scope was advanced up to the proximal jejunum. Hence he scheduled for a colonoscopy today to evaluate the source of GI bleed. Patient has received total of 90 the PRBC transition during this hospitalization the last 1 week. A tagged RBC scan done 2 days ago did show active oozing in the left upper quadrant area. PROCEDURE PERFORMED: Colonoscopy. PREOPERATIVE DIAGNOSIS: Acute GI bleed. IV sedation per Anesthesia. PROCEDURE: After informed consent was obtained, the patient, was brought into the endoscopy unit. IV sedation was administered by Anesthesia under continuous monitoring. Digital rectal examination was normal. Initially the Olympus CF-160 flexible video colonoscope was then inserted in the rectum, gradually advanced into the cecum without any difficulty. Careful examination was performed as the scope was gradually being withdrawn. Ileocecal valve and the appendiceal orifice were visualized and appeared normal. Prep was excellent. Mucosa of the cecum, ascending colon, transverse colon, descending colon, sigmoid colon, and rectum appeared normal. Retroflexion was performed in the rectum and no lesions were seen. The patient tolerated the procedure well. IMPRESSION: Normal-appearing colon from rectum to cecum with no evidence of colitis or colon rectal neoplasia No active bleeding noted Scattered sigmoid diverticulosis . RECOMMENDATIONS: Findings of this examination were discussed with the patient. Since no source of bleeding was identified he will will be scheduled for a small bowel capsule endoscopy today to evaluate this further..
--- NOTE | 2022-06-24 14:01 | P.PN ---
Subjective Progress Note Date: 06/24/22 Principal diagnosis: anemia At today's visit patient is resting comfortably in bed. He reports feeling okay today. EGD revealed no active GI bleed, mild gastritis. Colonoscopy showed no active GI bleed, scattered diverticulosis. Small bowel capsule study planned. He denies abdominal pain nausea vomiting diarrhea. Hemoglobin 6.8 today, additional unit of PRBCs has been ordered. No other reported complaints at this time Objective - Vital Signs Vital signs: Vital Signs Temp 96.8 F L 06/24/22 08:45 Pulse 90 06/24/22 08:45 Resp 18 06/24/22 08:45 BP 123/68 06/24/22 08:45 Pulse Ox 100 06/24/22 08:45 FiO2 21 06/21/22 08:42 Intake & Output 06/23/22 06/24/22 06/24/22 18:59 06:59 18:59 Intake Total 510 310 Output Total 1225 1000 Balance -715 -690 Intake: IV 200 Blood Product 310 310 Rc As-1 Unit 0 310 [id number] Rc As-1 Unit 310 [id number] Output: Urine 1225 1000 Other: Voiding Method Urinal Urinal Urinal # Voids 1 # Bowel Movements 1 3 - Constitutional General appearance: Present: no acute distress, obese - EENT Eyes: Present: anicteric sclerae, EOMI ENT: Present: hearing grossly normal - Respiratory Details: breathing is even and unlabored - Cardiovascular Details: skin is warm and dry - Integumentary Integumentary: Present: pale - Musculoskeletal Musculoskeletal: Present: generalized weakness - Psychiatric Psychiatric: Present: A&O x's 3, appropriate affect, intact judgment & insight - Labs CBC & Chem 7: 06/24/22 11:18 06/24/22 11:18 Labs: Abnormal Lab Results - Last 24 Hours (Table) 06/22/22 06/22/22 06/23/22 Range/Units 09:38 10:32 08:04 WBC (3.8-10.6) k/uL RBC (4.30-5.90) m/uL Hgb (13.0-17.5) gm/dL Hct (39.0-53.0) % RDW (11.5-15.5) % Neutrophils # (1.3-7.7) k/uL ESR 93 H (0-15) mm/hr Chloride (98-107) mmol/L BUN (9-20) mg/dL Creatinine (0.66-1.25) mg/dL Glucose (74-99) mg/dL POC Glucose (mg/dL) (70-110) mg/dL Calcium (8.4-10.2) mg/dL Total Protein (6.3-8.2) g/dL Albumin (3.5-5.0) g/dL Methylmalonic Acid 0.54 H (<0.40) umol/L Crossmatch See Detail 06/23/22 06/23/22 06/24/22 Range/Units 16:18 20:02 06:49 WBC (3.8-10.6) k/uL RBC (4.30-5.90) m/uL Hgb (13.0-17.5) gm/dL Hct (39.0-53.0) % RDW (11.5-15.5) % Neutrophils # (1.3-7.7) k/uL ESR (0-15) mm/hr Chloride (98-107) mmol/L BUN (9-20) mg/dL Creatinine (0.66-1.25) mg/dL Glucose (74-99) mg/dL POC Glucose (mg/dL) 139 H 133 H 132 H (70-110) mg/dL Calcium (8.4-10.2) mg/dL Total Protein (6.3-8.2) g/dL Albumin (3.5-5.0) g/dL Methylmalonic Acid (<0.40) umol/L Crossmatch 06/24/22 06/24/22 06/24/22 Range/Units 11:18 11:18 11:42 WBC 17.8 H (3.8-10.6) k/uL RBC 2.34 L (4.30-5.90) m/uL Hgb 6.8 L* (13.0-17.5) gm/dL Hct 21.1 L (39.0-53.0) % RDW 18.7 H (11.5-15.5) % Neutrophils # 13.8 H (1.3-7.7) k/uL ESR (0-15) mm/hr Chloride 109 H (98-107) mmol/L BUN 37 H (9-20) mg/dL Creatinine 1.31 H (0.66-1.25) mg/dL Glucose 134 H (74-99) mg/dL POC Glucose (mg/dL) 151 H (70-110) mg/dL Calcium 8.2 L (8.4-10.2) mg/dL Total Protein 5.6 L (6.3-8.2) g/dL Albumin 2.5 L (3.5-5.0) g/dL Methylmalonic Acid (<0.40) umol/L Crossmatch Microbiology - Last 24 Hours (Table) 06/22/22 08:17 Blood Culture - Preliminary Blood No Growth after 48 hours 06/17/22 17:40 Blood Culture Gram Stain - Final Blood Blood Culture - Final Methicillin resist S. aureus Strep agalactiae - (group b) Staph hominis sub sp. hominis 06/17/22 17:40 Blood Culture Gram Stain - Final Blood Blood Culture - Final Staphylococcus aureus Strep agalactiae - (group b) Staphylococcus epidermidis Staph hominis sub sp. hominis 06/17/22 17:40 Anaerobic Culture - Final Leg - Left Anaerobic Gram Positive Cocci Anaerobic Gm Negative Bacilli Assessment and Plan (1) Anemia Current Visit: Yes Status: Acute Code(s): D64.9 - ANEMIA, UNSPECIFIED SNOMED Code(s): 861759690 (2) Bilateral lower leg cellulitis Current Visit: Yes Status: Acute Code(s): L03.116 - CELLULITIS OF LEFT LOWER LIMB; L03.115 - CELLULITIS OF RIGHT LOWER LIMB SNOMED Code(s): 366082606 (3) Bacteremia Current Visit: No Status: Acute Code(s): R78.81 - BACTEREMIA SNOMED Code(s): 2899654 Plan: Anemia: -Hemoglobin has ranged from 5.1-7.6 during admission and has received 9 units of PRBCs. Hemoglobin 6.8 today, additional unit PRBCs was ordered. Iron studies revealed, iron 29, iron saturation 9.5%, and ferritin 41. Vitamin B12 and folate were low. Vitamin B12 and folate supplementation ordered. Will hold IV iron infusion at this time due to acute infection. -Tagged RBC scan showed a left upper quadrant to mid jejunal GI bleed. EGD revealed no active GI bleed, mild gastritis. Colonoscopy showed no active GI bleed, scattered diverticulosis. Small bowel capsule study planned. -Please continue to hold aspirin -Anemia likely related to acute GI bleed superimposed by chronic inflammation -Will continue to monitor counts. Please transfuse for hemoglobin less than 7 or symptomatic Bactermia/BLE wounds: -Blood cultures and wound culture positive. Repeat blood cultures negative at 48 hrs. Pt continues on cefepime and flagyl -Defer management to IM/ID team
[2022-06-24] MEDS ORDERED: SIMETHICONE 40 MG/0.6 ML DROPS 2,000 MG/30 ML BOTTLE PO ONE (14:45)
--- NOTE | 2022-06-24 15:22 | P.PN ---
Subjective Progress Note Date: 06/24/22 Principal diagnosis: Bilateral lower extremity ulcers cellulitis and bacteremia Patient is a 56-year male with a past medical history significant for CVA TIA coronary disease heart failure patient did have a history of bilateral lower extremity venous stasis ulcer, presented to hospital with weakness and syncopal episode patient did have worsening of bilateral lower extremity wound and cellulitis and did have evidence of bacteremia. Patient is status post EGD on 06/23/2022 with no source of bleeding, patient is status post colonoscopy on 06/24/2022 with no source of bleeding On today's evaluation that is 06/24/2022, the patient remains to be afebrile, the patient is breathing comfortably currently on 2L nasal cannula oxygen, the patient slightly lethargic as just came back from colonoscopy no vomiting or any other changes reported Objective - Vital Signs Vital signs: Vital Signs Temp 96.8 F L 06/24/22 08:45 Pulse 90 06/24/22 08:45 Resp 18 06/24/22 08:45 BP 123/68 06/24/22 08:45 Pulse Ox 100 06/24/22 08:45 FiO2 21 06/21/22 08:42 Intake & Output 06/23/22 06/24/22 06/24/22 18:59 06:59 18:59 Intake Total 510 310 Output Total 1225 1000 Balance -715 -690 Intake: IV 200 Blood Product 310 310 Rc As-1 Unit 0 310 [id number] Rc As-1 Unit 310 [id number] Output: Urine 1225 1000 Other: Voiding Method Urinal Urinal Urinal # Voids 1 # Bowel Movements 1 3 - Exam GENERAL DESCRIPTION: A middle-age male lying in bed in no distress RESPIRATORY SYSTEM: Unlabored breathing , decreased breath sounds at bases HEART: S1 S2 regular rate and rhythm , ABDOMEN: Soft , no tenderness EXTREMITIES: Bilateral lower extremity currently wrapped no drainage on the dressing - Labs CBC & Chem 7: 06/24/22 11:18 06/24/22 11:18 Labs: Abnormal Lab Results - Last 24 Hours (Table) 06/22/22 06/22/22 06/23/22 Range/Units 09:38 10:32 16:18 WBC (3.8-10.6) k/uL RBC (4.30-5.90) m/uL Hgb (13.0-17.5) gm/dL Hct (39.0-53.0) % RDW (11.5-15.5) % Neutrophils # (1.3-7.7) k/uL Chloride (98-107) mmol/L BUN (9-20) mg/dL Creatinine (0.66-1.25) mg/dL Glucose (74-99) mg/dL POC Glucose (mg/dL) 139 H (70-110) mg/dL Calcium (8.4-10.2) mg/dL Total Protein (6.3-8.2) g/dL Albumin (3.5-5.0) g/dL Methylmalonic Acid 0.54 H (<0.40) umol/L Crossmatch See Detail 06/23/22 06/24/22 06/24/22 Range/Units 20:02 06:49 11:18 WBC (3.8-10.6) k/uL RBC (4.30-5.90) m/uL Hgb (13.0-17.5) gm/dL Hct (39.0-53.0) % RDW (11.5-15.5) % Neutrophils # (1.3-7.7) k/uL Chloride 109 H (98-107) mmol/L BUN 37 H (9-20) mg/dL Creatinine 1.31 H (0.66-1.25) mg/dL Glucose 134 H (74-99) mg/dL POC Glucose (mg/dL) 133 H 132 H (70-110) mg/dL Calcium 8.2 L (8.4-10.2) mg/dL Total Protein 5.6 L (6.3-8.2) g/dL Albumin 2.5 L (3.5-5.0) g/dL Methylmalonic Acid (<0.40) umol/L Crossmatch 06/24/22 06/24/22 Range/Units 11:18 11:42 WBC 17.8 H (3.8-10.6) k/uL RBC 2.34 L (4.30-5.90) m/uL Hgb 6.8 L* (13.0-17.5) gm/dL Hct 21.1 L (39.0-53.0) % RDW 18.7 H (11.5-15.5) % Neutrophils # 13.8 H (1.3-7.7) k/uL Chloride (98-107) mmol/L BUN (9-20) mg/dL Creatinine (0.66-1.25) mg/dL Glucose (74-99) mg/dL POC Glucose (mg/dL) 151 H (70-110) mg/dL Calcium (8.4-10.2) mg/dL Total Protein (6.3-8.2) g/dL Albumin (3.5-5.0) g/dL Methylmalonic Acid (<0.40) umol/L Crossmatch Microbiology - Last 24 Hours (Table) 06/22/22 08:17 Blood Culture - Preliminary Blood No Growth after 48 hours 06/17/22 17:40 Blood Culture Gram Stain - Final Blood Blood Culture - Final Methicillin resist S. aureus Strep agalactiae - (group b) Staph hominis sub sp. hominis 06/17/22 17:40 Blood Culture Gram Stain - Final Blood Blood Culture - Final Staphylococcus aureus Strep agalactiae - (group b) Staphylococcus epidermidis Staph hominis sub sp. hominis 06/17/22 17:40 Anaerobic Culture - Final Leg - Left Anaerobic Gram Positive Cocci Anaerobic Gm Negative Bacilli Assessment and Plan (1) Bacteremia Current Visit: Yes Status: Acute Code(s): R78.81 - BACTEREMIA SNOMED Code(s): 5941186 (2) Bilateral lower leg cellulitis Current Visit: Yes Status: Acute Code(s): L03.116 - CELLULITIS OF LEFT LOWER LIMB; L03.115 - CELLULITIS OF RIGHT LOWER LIMB SNOMED Code(s): 399410331 Plan: 1patient with bilateral lower extremity venous stasis ulcer and a component of cellulitis likely from gram-positive skin ani such as strep or Staph aureus 2-patient with MRSA bacteremia likely related to bilateral extremity wound and cellulitis, blood cultures growing MRSA and Streptococcus along with a copious negative staph, the patient local wound culture from the leg wounds are growing MRSA Morganella and anaerobe and gram-negative bacilli, patient seemed to have cleared his bacteremia as a blood culture on 06/22/2022 has been negative so for 3-patient to continue with vancomycin, cefepime and Flagyl , and monitor clinical course closely Time with Patient: Less than 30
[2022-06-24 16:14] LABS: Glucose,Whole Blood 132 mg/dL (70-110)
--- NOTE | 2022-06-24 17:14 | P.PN ---
Subjective Progress Note Date: 06/24/22 This is a 56-year-old male patient who presented to the ER with concerns of weakness in lower extremity wounds. Patient reports he has had increasing weakness prompting him to call EMS for further assistance Patient has not been into see his primary care doctor in almost years has not taken his medications in over a year. Patient reports that he did not have easy accessibility to rides and getting out of the house. Patient reports he has been dealing with lower extremity wounds that he has been treating at home without improvement. Patient has a past medical history of hypertension, coronary artery disease, CVA, chronic renal disease. Chest x-ray completed showing no definitive acute radiographic process. Troponin negative. WBC 18.7. Hemoglobin 7.6.. At this time patient has been started on IV antibiotics blood cultures ordered. Wound cultures ordered. Infectious disease and wound care service is consulted. Will reorder home medication according to most recent PCP visit. We'll also consult PT OT and social work services for discharge planning and assessment of home situation On 06/19/2022 patient was seen and examined on the medical he is alert and oriented 3 in no apparent distress he is complaining of bilateral lower extremity pain at the sites of cellulitis and ulcers, he is also complaining of back pain and feeling uncomfortable in bed, otherwise he denies any complaints, there is no fever or chills no headache or dizziness no chest pain no shortness of breath no cough, no nausea or vomiting no abdominal pain no diarrhea and no urinary symptoms, hemoglobin continues to drop, patient received 1 unit of red blood cell transfusion yesterday, however today his hemoglobin has dropped to 5.8, a second unit of red blood cell transfusion was ordered this morning, will continue to monitor hemoglobin closely. Stools for Hemoccult was sent results are still pending. White blood count is improving down to 13.5 today, patient remains on IV antibiotics for bilateral lower extremity cellulitis. IV Protonix was added to medication regimen, computed tomography scan of the abdomen and pelvis was ordered by surgery for evaluation, will continue to follow closely. Prognosis is guarded. On 06/20/2022 patient is currently resting comfortably in bed alert and oriented 3. Per nursing staff patient had one dark stool last night awaiting hemoglobin level to assess if patient needs blood transfusion. Plans for EGD tomorrow per surgical services did also discuss case with neurologist Dr. Simpson patient never had the diagnosis of Parkinson's does not require any initiation of Parkinson's medication. Patient was on levodopa due to tremors post CVA. Patient remains on Maxipime and vancomycin. At this time patient denies chest pain or shortness breath. Patient denies nausea vomiting or diarrhea. Patient denies any urinary burning or frequency. CT of abdomen and pelvis showing no acute abdominal pelvic process On 06/21/2022 patient is alert and oriented 3. Patient currently getting transferred for EGD. Hemoglobin 5.1. 2 units of PRBCs have been ordered. This was discussed with nurse. Current vital signs temp 98.1, pulse rate 86, respiratory rate 19, blood pressure 110/51 with a pulse ox 98% on 2 L. Patient remains on IV Maxipime and vancomycin. Patient underwent EGD today with Dr. Godoy, patient had retained food in the stomach which limited the evaluation however there was no clear evidence of bleeding on EGD, intact red blood cell nuclear scan was ordered and gastroenterology consultation was requested hemoglobin today is down to 5.12 units of red blood cell transfusion were ordered, hematology consultation also requested , will check vitamin B12 and folate level , will continue to monitor closely On 06/22/2022 patient was seen and examined on the medical floor he is alert and oriented 3 in no apparent distress he is complaining of bilateral lower extremity pain and complaining of low back pain otherwise he denies any complaints there is no fever or chills no headache or dizziness no chest pain no shortness of breath no cough no nausea or vomiting no abdominal pain no diarrhea no burning with urination no frequency or urgency and no hematuria. Yesterday he underwent EGD with Dr. Godoy, he also underwent RBC tagged nuclear scan which revealed evidence of active GI bleeding, gastroenterology consultation was requested and he is scheduled for repeat EGD tomorrow. Patient is receiving IV antibiotic for bilateral lower extremity cellulitis with ulcers, he is also receiving red blood cell transfusion as needed for hemoglobin below 7 On 06/23/2022 patient is alert and oriented times the. Discussed with nursing staff plan for EGD with GI services Dr. Serrato today. Hemoglobin 6.01 unit of PRBCs ordered. Patient remains on IV vancomycin and Maxipime. Flagyl also added per infectious disease services at this time vitals have remained stable. Per nursing staff patient still having dark stools no vomiting. Temp 98.2, heart rate 84, history rate 18, blood pressure 133/64 with pulse ox 98% on 2 L. Infectious disease, surgical services, GI services, hematology services and nephrology services following. On 06/24/2022 patient was seen and examined the medical floor is alert and oriented 3 distress there is no fever or chills no headache or dizziness no chest pain no shortness of breath no cough no nausea or vomiting no abdominal pain no diarrhea and no urinary symptoms, hemoglobin today 6.81 more unit of red blood cell transfusion was ordered, patient is scheduled for colonoscopy was Dr. Serrato today, will continue to follow closely Objective - Vital Signs Vital signs: Vital Signs Temp 96.8 F L 06/24/22 08:45 Pulse 90 06/24/22 08:45 Resp 18 06/24/22 08:45 BP 123/68 06/24/22 08:45 Pulse Ox 100 06/24/22 08:45 FiO2 21 06/21/22 08:42 Intake & Output 06/23/22 06/24/22 06/24/22 18:59 06:59 18:59 Intake Total 510 310 Output Total 1225 1000 Balance -715 -690 Intake: IV 200 Blood Product 310 310 Rc As-1 Unit 0 310 [id number] Rc As-1 Unit 310 [id number] Output: Urine 1225 1000 Other: Voiding Method Urinal Urinal # Voids 1 # Bowel Movements 1 1 - Exam In general patient is alert and oriented 3 Head normocephalic and atraumatic Neck supple no JVD no goiter Lungs clear to auscultation bilaterally no wheezing or crackles Heart regular rate and rhythm S1-S2, no rub or gallop Abdomen is soft nontender nondistended positive bowel sounds no hepatosplenom egaly Extremities bilateral lower extremity wounds and cellulitis. Serosanguineous drainage noted Neuro no gross focal deficit - Labs CBC & Chem 7: 06/24/22 11:18 06/24/22 11:18 Labs: Abnormal Lab Results - Last 24 Hours (Table) 06/22/22 06/22/22 06/23/22 Range/Units 09:38 10:32 08:04 ESR 93 H (0-15) mm/hr POC Glucose (mg/dL) (70-110) mg/dL Methylmalonic Acid 0.54 H (<0.40) umol/L Crossmatch See Detail 06/23/22 06/23/22 06/23/22 Range/Units 11:42 16:18 20:02 ESR (0-15) mm/hr POC Glucose (mg/dL) 159 H 139 H 133 H (70-110) mg/dL Methylmalonic Acid (<0.40) umol/L Crossmatch 06/24/22 Range/Units 06:49 ESR (0-15) mm/hr POC Glucose (mg/dL) 132 H (70-110) mg/dL Methylmalonic Acid (<0.40) umol/L Crossmatch Microbiology - Last 24 Hours (Table) 06/17/22 17:40 Blood Culture Gram Stain - Final Blood Blood Culture - Final Methicillin resist S. aureus Strep agalactiae - (group b) Staph hominis sub sp. hominis 06/17/22 17:40 Blood Culture Gram Stain - Final Blood Blood Culture - Final Staphylococcus aureus Strep agalactiae - (group b) Staphylococcus epidermidis Staph hominis sub sp. hominis 06/17/22 17:40 Anaerobic Culture - Final Leg - Left Anaerobic Gram Positive Cocci Anaerobic Gm Negative Bacilli 06/22/22 08:17 Blood Culture - Preliminary Blood No Growth after 24 hours Assessment and Plan Plan: 1. Lower extremity cellulitis with elevated white blood cell count and positive wound and blood cultures 2. Noncompliance with medication patient reports he has not been taking his meds in over here and has not seen his PCP in over 2 years 3. History of CVA 4. Morbid obesity 5. History of essential hypertension 6. Diabetes mellitus type 2. Hemoglobin A1c 6.8. Patient has not taken medication in over a year 7. Chronic venous stasis 8. Patient previously on levodopa due to tremors post CVA discussed case with neurologist patient does not require any further medication 9. Anemia with positive occult blood. Plans for EGD on Tuesday per surgical services 10. Hyperkalemia potassium 5.6 11. Acute kidney injury creatinine 1.3 bun 52 on presentation. nephrology services are following DVT prophylaxis SCDs due to anemia Infectious disease consulted for lower extremity cellulitis patient maintained on IV antibiotics Per neurology patient never had the diagnosis of Parkinson's disease does not require any further medication. Recommendations of initiation of aspirin once surgical clearance Patient has been transfused with 8 units of PRBCs EGD completed on 06/21/2022 Tagged RBC scan completed showing findings suggestive of left upper quadrant proximal to mid duodenal GI bleed EGD scheduled with push enteroscopy 06/23/[address] Serrato
[2022-06-24] MEDS: HYDROmorphone 0.5 MG/0.5 ML SYRINGE IVP PRN (17:24)
[2022-06-24] MEDS: COLLAGENASE 250 UNIT/GM OINTMENT 30 GM TUBE TOPICAL SCH (18:26)
[2022-06-24 20:16] LABS: Glucose,Whole Blood 140 mg/dL (70-110)
[2022-06-25] MEDS: SODIUM CHLORIDE 0.9% 1,000 ML IV SCH ×2 (01:36→17:00)
[2022-06-25 06:34] LABS: Glucose,Whole Blood 128 mg/dL (70-110)
[2022-06-25] MEDS: INSULIN ASPART (NovoLOG) 100 UNIT/ML VIAL SQ SCH ×4 (06:35→20:29)
--- NOTE | 2022-06-25 08:27 | P.PN ---
Subjective Progress Note Date: 06/25/22 Principal diagnosis: GI bleed This is a pleasant 56-year-old male who presented to the emergency department several days ago for lower extremity swelling and redness as well as dizziness. He was admitted for bilateral lower extremity cellulitis and started on antibiotics. He has a past medical history including morbid obesity, coronary artery disease, heart failure, CVA, diabetes mellitus, hyperlipidemia, hypertension, chronic renal disease and sleep apnea. During his hospitalization patient was noted to be anemic with a drop in his hemoglobin. Gen. surgery was consulted for anemia and suspected GI bleed. Patient denies any regular use of NSAIDs, no anticoagulation, states he has not had any previous history of GI bleed or anemia. He has not required blood transfusions in the past. Denies any history of peptic ulcer disease, states that he had an EGD maybe around 2013 or . No previous colonoscopy. Dr. Godoy was following patient and he underwent EGD this morning with findings of hiatal hernia, moderate retained food with blood, unclear assess acute bleeding. No esophageal ulcers with bleeding. Unable to intubate due to addendum due to moderate retained food. Tagged RBC has been ordered. Patient had a drop in his hemoglobin rate of 5.1 and was ordered 2 units of blood. He underwent a CT of the abdomen and pelvis without contrast showed no acute abdominal/pelvic process. He states he is unsure if he's had any blood in his stool or black stool, states that his nephew told him that he had dark stool on the day he came to the hospital. He does not state that he is having black stool since admission to the hospital that he had 2 bowel movements today. The patient had denied any abdominal pain nausea or vomiting. He states he does have some abdominal pain today as well as nausea and vomiting following his EGD. 06/22/2022: Patient seen and examined today as a follow-up. On entering his room patient was drinking bowel prep ordered by Dr. Godoy who had patient scheduled for colonoscopy on 06/23/2022. He denies any acute changes through the night. He underwent his tagged RBC yesterday with findings suggestive of left upper quadrant proximal to mid jejunal GI bleed. He denies any further bowel movements today. Repeat hemoglobin 6.1. Another unit of blood totaling 6 units this admission. Patient is denying any abdominal pain no further nausea or vomiting. 06/25/2022: Patient was seen and examined today as a follow-up for anemia and GI bleed. Patient underwent EGD 2 days ago with no evidence of active upper GI bleed in the proximal jejunum. Mild gastritis. Yesterday he then underwent colonoscopy with a good prep with findings of normal-appearing colon from rectum to cecum with no evidence of colitis or colon rectal neoplasm. No active bleeding noted. Scattered sigmoid diverticulosis. Yesterday patient required his TENS unit of blood during this admission today's labs are currently pending. Following his colonoscopy small bowel video capsule endoscopy was administered which is currently pending. Patient denies any abdominal pain, no nausea no vomiting. No bowel movement since colonoscopy. Nursing did report yesterday during his prep that his stool was black before completion of prep. Objective - Vital Signs Vital signs: Vital Signs Temp 97.9 F 06/25/22 00:00 Pulse 73 06/25/22 04:00 Resp 22 06/25/22 04:00 BP 125/59 06/25/22 04:00 Pulse Ox 99 06/25/22 08:00 FiO2 06/21/22 08:42 Intake & Output 06/24/22 06/25/22 06/25/22 18:59 06:59 18:59 Intake Total 510 400 Output Total 200 400 Balance 310 0 Intake: Oral 200 400 Blood Product 310 Rc As-1 Unit 310 [id number] Output: Urine 200 400 Other: Voiding Method Urinal Urinal # Bowel Movements 3 - Exam General appearance: The patient is alert, oriented, appears in no acute distress. Morbidly obese HET: Head is normocephalic and atraumatic. Conjunctiva pink. Sclera anicteric. Neck: Supple without lymphadenopathy. Abdomen: Soft, nontender, nondistended with bowel sounds. No guarding or rigidity. Extremities: Normal skin color and turgor. Bilateral pedal edema. Skin: No jaundice. Bilateral lower extremities with dressings clean dry and intact. Neurological: No focal deficits. Alert and oriented. - Labs CBC & Chem 7: 06/25/22 09:03 06/25/22 09:03 Labs: Abnormal Lab Results - Last 24 Hours (Table) 06/22/22 06/24/22 06/24/22 Range/Units 10:32 11:18 11:18 WBC 17.8 H (3.8-10.6) k/uL RBC 2.34 L (4.30-5.90) m/uL Hgb 6.8 L* (13.0-17.5) gm/dL Hct 21.1 L (39.0-53.0) % RDW 18.7 H (11.5-15.5) % Neutrophils # 13.8 H (1.3-7.7) k/uL Chloride 109 H (98-107) mmol/L BUN 37 H (9-20) mg/dL Creatinine 1.31 H (0.66-1.25) mg/dL Glucose 134 H (74-99) mg/dL POC Glucose (mg/dL) (70-110) mg/dL Calcium 8.2 L (8.4-10.2) mg/dL Total Protein 5.6 L (6.3-8.2) g/dL Albumin 2.5 L (3.5-5.0) g/dL Crossmatch See Detail 06/24/22 06/24/22 06/24/22 Range/Units 11:42 16:12 20:15 WBC (3.8-10.6) k/uL RBC (4.30-5.90) m/uL Hgb (13.0-17.5) gm/dL Hct (39.0-53.0) % RDW (11.5-15.5) % Neutrophils # (1.3-7.7) k/uL Chloride (98-107) mmol/L BUN (9-20) mg/dL Creatinine (0.66-1.25) mg/dL Glucose (74-99) mg/dL POC Glucose (mg/dL) 151 H 132 H 140 H (70-110) mg/dL Calcium (8.4-10.2) mg/dL Total Protein (6.3-8.2) g/dL Albumin (3.5-5.0) g/dL Crossmatch 06/25/22 Range/Units 06:33 WBC (3.8-10.6) k/uL RBC (4.30-5.90) m/uL Hgb (13.0-17.5) gm/dL Hct (39.0-53.0) % RDW (11.5-15.5) % Neutrophils # (1.3-7.7) k/uL Chloride (98-107) mmol/L BUN (9-20) mg/dL Creatinine (0.66-1.25) mg/dL Glucose (74-99) mg/dL POC Glucose (mg/dL) 128 H (70-110) mg/dL Calcium (8.4-10.2) mg/dL Total Protein (6.3-8.2) g/dL Albumin (3.5-5.0) g/dL Crossmatch Microbiology - Last 24 Hours (Table) 06/22/22 08:17 Blood Culture - Preliminary Blood No Growth after 48 hours Assessment and Plan (1) GI bleed Narrative/Plan: 56-year-old male with multiple comorbidities presented to the emergency department 4 days ago with complaints of lower extremity swelling and redness, and dizziness was admitted for cellulitis and treated. He was noted to be anemic with hemoglobin of 7.6 on admission. No previous history of GI bleed, no anticoagulation or regular NSAID use. Patient denied any knowledge of any blood in his stool or black stool however states his nephew said his stool was dark when the ambulance came that day. No previous history of GI bleed. He's had a continuous trend down and his hemoglobin and has had 3 units of blood on this admission with another 2 units ordered today. He underwent upper endoscopy with general surgery today with findings of retained food and blood noted however EGD could not be completed due to the retained food. It was reported no esophageal ulcers with bleeding noted. Unable to intubate leg due to moderate retained food.. CAD RBC scan ordered currently pending. Unclear etiology at this time of GI bleed. We'll need to proceed with repeat EGD, colonoscopy and consider small bowel capsule endoscopy if needed. 06/22/2022: Underwent tagged RBC that reported left upper quadrant proximal to jejunal bleed. Hemoglobin up from 5.2-6.1. Patient denies any bowel movement no rectal bleeding. Likely dealing with an upper GI bleed. Patient is scheduled with Dr. Godoy for colonoscopy tomorrow per orders. We'll plan to proceed with EGD tomorrow 06/25/2022: Patient has undergone EGD and colonoscopy without any evidence of any active bleeding or old blood noted. Colonoscopy showed some scattered sigmoid diverticulosis without any active bleeding. Small bowel capsule endoscopy completed and currently pending. Awaiting morning labs. Patient is status post 10 units of blood transfusion this admission. The patient has a drop in hemoglobin would recommend transfer to tertiary center as patient likely will need advanced endoscopist, possible consult with interventional radiology and embolization. Plan discussed with general surgery. Small bowel capsule endoscopy reviewed with active bleeding seen at distal ileum versus right colon, possible diverticular bleed. Drop in hemoglobin to 6.5, 1 unit of blood ordered. PCP Dr. Davi shirley served with information of with recommendation to transfer to tertiary center. Current Visit: Yes Status: Acute Code(s): K92.2 - GASTROINTESTINAL HEMORRHAGE, UNSPECIFIED SNOMED Code(s): 91407232 (2) Anemia Narrative/Plan: Normocytic normochromic anemia Current Visit: Yes Status: Acute Code(s): D64.9 - ANEMIA, UNSPECIFIED SNOMED Code(s): 861400662 (3) Bilateral lower leg cellulitis Current Visit: Yes Status: Acute Code(s): L03.116 - CELLULITIS OF LEFT LOWER LIMB; L03.115 - CELLULITIS OF RIGHT LOWER LIMB SNOMED Code(s): 805596593 (4) Leukocytosis Current Visit: Yes Status: Acute Code(s): D72.829 - ELEVATED WHITE BLOOD CELL COUNT, UNSPECIFIED SNOMED Code(s): 331605284 (5) Morbid obesity with BMI of 60.0-69.9, adult Current Visit: No Status: Acute Code(s): E66.01 - MORBID (SEVERE) OBESITY DUE TO EXCESS CALORIES SNOMED Code(s): 112771522 (6) Acute on chronic kidney failure Current Visit: No Status: Acute Code(s): N17.9 - ACUTE KIDNEY FAILURE, UNSPECIFIED SNOMED Code(s): 018872323 (7) Gastroparesis Narrative/Plan: Patient fell with retained food in stomach on EGD. Likely diabetic gastrop aresis. However repeat EGD without any retained food. Current Visit: Yes Status: Acute Code(s): K31.84 - GASTROPARESIS SNOMED Code(s): 213101938 Plan: 1. Continue symptomatic and supportive care 2. CBC every 6 hours, transfuse for hemoglobin less than 7. 1 unit PRBC ordered 3. Small bowel capsule endoscopy study pending 4. Consistent carbohydrate diet 5. Protonix 40 mg twice a day for GI prophylaxis 6. Avoid NSAIDs or anticoagulation 7. Continue to follow recommendations from general surgery 8. Small bowel capsule endoscopy reviewed with active bleeding and old blood noted. Perfect serve was sent to Dr. Tomlinson at 1025 with recommendation to tra nsfer patient to tertiary center for active GI bleed, need for advanced protocol manager and possible CTA with embolization. Thank you for this consultation. Thank you for allowing us to participate in the care of the patient, the GI service will sign off, gastroenterology will not be available at the hospital. If further evaluation by gastroenterology is required the patient will need transfer as per the primary team's discretion. Dr. Eric Serrato I agree with the dictator's note, documented as a scribe by Earline Garcia.
[2022-06-25] MEDS: COLLAGENASE 250 UNIT/GM OINTMENT 30 GM TUBE TOPICAL SCH (08:56)
[2022-06-25] MEDS: metroNIDAZOLE 500 MG TAB PO SCH ×3 (09:36→20:46)
[2022-06-25] MEDS: CEFEPIME 2 GM in SODIUM CHLORIDE 0.9% 100 ML IVPB SCH ×2 (09:36→20:47)
[2022-06-25] MEDS: CYANOCOBALAMIN 1,000 MCG/ML 1 ML VIAL IM SCH (09:37)
[2022-06-25] MEDS: PANTOPRAZOLE 40 MG/10 ML VIAL IVP SCH ×2 (09:37→20:46)
[2022-06-25] MEDS: FOLIC ACID 1 MG TAB PO SCH (09:37)
[2022-06-25 09:56] LABS: Anisocytosis Slight; Basophils % (A) 0 %; Eosinophils # (A) 0.6 k/uL (0-0.7); Eosinophils % (A) 4 %; Hypochromasia Marked; Lymphocytes # (A) 1.6 k/uL (1.0-4.8); Lymphocytes % (A) 11 %; MCH 28.9 pg (25.0-35.0); MCV 93.2 fL (80.0-100.0); Macrocytosis Slight; Mean Platelet Volume 8.2; Monocytes # (A) 0.8 k/uL (0-1.0); Monocytes % (A) 5 %; Neutrophils # (A) 11.4 k/uL (1.3-7.7); Neutrophils % (A) 77 %; Platelet Count 252 k/uL (150-450); Poikilocytosis Moderate; RBC 2.25 m/uL (4.30-5.90); RDW 19.3 % (11.5-15.5); WBC 14.7 k/uL (3.8-10.6)
[2022-06-25 10:04] LABS: Potassium 4.1 mmol/L (3.5-5.1)
[2022-06-25 10:12] LABS: HGB 6.5 gm/dL (13.0-17.5)
--- NOTE | 2022-06-25 11:44 | P.PN ---
Subjective Patient is seen in follow-up for acute kidney injury on chronic kidney disease. Patient has chronic kidney disease stage IIIA with baseline creatinine in the range of 1.1-1.3 secondary to nephrosclerosis and diabetic kidney disease. Renal function near baseline. Receiving IV fluids. Nonoliguric. No bowel movement today. Hemoglobin 6.5 today. Will be receiving more blood. Has received >10 units of blood this admission. EGD done 06/23/2022 showed no evidence of active upper GI bleed. Colonoscopy also showed no active bleeding. Vital signs are stable. General: No acute distress. HEENT: Head exam is unremarkable. LUNGS: No audible rhonchi or wheezes. HEART: Rate and Rhythm are regular. ABDOMEN: Soft, obese. EXTREMITITES: Lower extremities wrapped. No drainage. Objective - Vital Signs Vital signs: Vital Signs Temp 97.2 F L 06/25/22 08:00 Pulse 73 06/25/22 08:00 Resp 16 06/25/22 08:00 BP 121/52 06/25/22 08:00 Pulse Ox 99 06/25/22 08:00 FiO2 21 06/21/22 08:42 Intake & Output 06/24/22 06/25/22 06/25/22 18:59 06:59 18:59 Intake Total 510 400 Output Total 200 400 300 Balance 310 0 -300 Intake: Oral 200 400 Blood Product 310 Rc As-1 Unit 310 [id number] Output: Urine 200 400 300 Other: Voiding Method Urinal Urinal # Bowel Movements 3 - Labs CBC & Chem 7: 06/25/22 09:03 06/25/22 09:03 Labs: Abnormal Lab Results - Last 24 Hours (Table) 06/22/22 06/24/22 06/24/22 Range/Units 10:32 11:18 11:18 WBC 17.8 H (3.8-10.6) k/uL RBC 2.34 L (4.30-5.90) m/uL Hgb 6.8 L* (13.0-17.5) gm/dL Hct 21.1 L (39.0-53.0) % RDW 18.7 H (11.5-15.5) % Neutrophils # 13.8 H (1.3-7.7) k/uL Chloride 109 H (98-107) mmol/L BUN 37 H (9-20) mg/dL Creatinine 1.31 H (0.66-1.25) mg/dL Glucose 134 H (74-99) mg/dL POC Glucose (mg/dL) (70-110) mg/dL Calcium 8.2 L (8.4-10.2) mg/dL Total Protein 5.6 L (6.3-8.2) g/dL Albumin 2.5 L (3.5-5.0) g/dL Crossmatch See Detail 06/24/22 06/24/22 06/24/22 Range/Units 11:42 16:12 20:15 WBC (3.8-10.6) k/uL RBC (4.30-5.90) m/uL Hgb (13.0-17.5) gm/dL Hct (39.0-53.0) % RDW (11.5-15.5) % Neutrophils # (1.3-7.7) k/uL Chloride (98-107) mmol/L BUN (9-20) mg/dL Creatinine (0.66-1.25) mg/dL Glucose (74-99) mg/dL POC Glucose (mg/dL) 151 H 132 H 140 H (70-110) mg/dL Calcium (8.4-10.2) mg/dL Total Protein (6.3-8.2) g/dL Albumin (3.5-5.0) g/dL Crossmatch 06/25/22 06/25/22 06/25/22 Range/Units 06:33 09:03 09:03 WBC 14.7 H (3.8-10.6) k/uL RBC 2.25 L (4.30-5.90) m/uL Hgb 6.5 L* (13.0-17.5) gm/dL Hct 21.0 L (39.0-53.0) % RDW 19.3 H (11.5-15.5) % Neutrophils # 11.4 H (1.3-7.7) k/uL Chloride 109 H (98-107) mmol/L BUN 30 H (9-20) mg/dL Creatinine 1.39 H (0.66-1.25) mg/dL Glucose 138 H (74-99) mg/dL POC Glucose (mg/dL) 128 H (70-110) mg/dL Calcium 8.0 L (8.4-10.2) mg/dL Total Protein (6.3-8.2) g/dL Albumin (3.5-5.0) g/dL Crossmatch Microbiology - Last 24 Hours (Table) 06/22/22 08:17 Blood Culture - Preliminary Blood No Growth after 72 hours 06/23/22 08:12 Blood Culture - Preliminary Blood Assessment and Plan Plan: Assessment: 1. Acute kidney injury secondary to ATN secondary to acute blood loss anemia and sepsis. Vanco level 31.3 dated 04/22/2022. Creatinine 1.39 today. 2. Chronic kidney disease stage IIIa with baseline creatinine 1.1-1.3 secondary to diabetic kidney disease and nephrosclerosis. Trace proteinuria on UA. No hydronephrosis noted on CAT scan. 3. Acute GI bleed status post EGD with further intervention required by GI. Has been receiving blood transfusions. Also received IV DDAVP x2 doses - last dose 06/22/2022. CAT scan showed left upper quadrant proximal to mid jejunal GI bleed. EGD showed no evidence of active upper GI bleed. Colonoscopy also showed no active bleeding. 4. Hyperkalemia secondary to acute kidney injury and GI bleed. Improved. 5. Diabetes mellitus. 6. MRSA bacteremia and lower extremity wounds on antibiotics. ID following. Plan: Maintain IV fluids. Avoid nephrotoxins. Monitor vancomycin levels - dose to be adjusted for renal function. Monitor hemoglobin and transfuse as needed. Continue to monitor renal function and urine output.
[2022-06-25 11:48] LABS: Glucose,Whole Blood 201 mg/dL (70-110)
[2022-06-25] MEDS ORDERED: VANCOMYCIN 2,500 MG in SODIUM CHLORIDE 0.9% 500 ML 500 ML IVPB ONE (12:00)
--- NOTE | 2022-06-25 12:05 | P.PN ---
Subjective Progress Note Date: 06/25/22 CHIEF COMPLAINT: Anemia HISTORY OF PRESENT ILLNESS: Patient is status post EGD had shown moderate retained food with blood and unclear to assess acute bleeding. GI consulted for intervention due to acute GI bleed. Tagged RBC scan had showed findings suggest left upper quadrant proximal to mid jejunal GI bleed. Patient had EGD with push enteroscopy with Dr. Serrato. No evidence of active upper GI bleed in the proximal jejunum. Mild gastritis. Patient had colonoscopy with no significant signs of bleeding. And reticulocyte Endoscopy with active bleeding at the distal ileum versus right colon. Possible diverticular bleed. They have recommended transfer to tertiary care center. Patient has no abdominal pain. Hgb 6.5 and was serving another unit of blood. PHYSICAL EXAM: VITAL SIGNS: Reviewed GENERAL: Well-developed in no acute distress. HEENT: No sclera icterus. Extraocular movements grossly intact. Moist buccal mucosa. Head is atraumatic, normocephalic. Hears conversational speech. No nasal drainage. NECK: Supple without lymphadenopathy. CHEST: Non-labored respirations and equal bilateral excursions. CARDIOVASCULAR: Palpable 2+ radial pulses. ABDOMEN: Soft. Obese. Nondistended. Nontender. MUSCULOSKELETAL: No clubbing or cyanosis. NEUROLOGIC: No focal or lateralizing signs. Cranial nerves II through XII grossly intact. PSYCH: Appropriate affect. Alert and oriented to person, place and time. SKIN: Well perfused. Good skin turgor. ASSESSMENT: 1. Anemia with black stools. Active bleeding noted on Capsule Endoscopy 2. Tagged RBC scan with findings to assess left upper quadrant proximal to mid jejunal GI bleed. No bleeding on EGD 3. Morbid obesity 4. Moderate retained gastric food on EGD PLAN: -Agree with transfer to tertiary care center -Continue to transfuse as needed -Continue Protonix -Continue supportive Physician Director Of Teacher Education note has been reviewed by physician. Signing provider agrees with the documented findings, assessment, and plan of care. Please see additional documentation. Due to patient's complex medical care including recurrent bleeding and limited interventional radiology at this institution, do recommend transfer to tertiary care center for additional management of GI bleed. Objective - Vital Signs Vital signs: Vital Signs Temp 97.2 F L 06/25/22 08:00 Pulse 73 06/25/22 08:00 Resp 16 06/25/22 08:00 BP 121/52 06/25/22 08:00 Pulse Ox 99 06/25/22 08:00 FiO2 21 06/21/22 08:42 Intake & Output 06/24/22 06/25/22 06/25/22 18:59 06:59 18:59 Intake Total 510 400 Output Total 200 400 300 Balance 310 0 -300 Intake: Oral 200 400 Blood Product 310 Rc As-1 Unit 310 [id number] Output: Urine 200 400 300 Other: Voiding Method Urinal Urinal # Bowel Movements 3 - Labs CBC & Chem 7: 06/25/22 09:03 06/25/22 09:03 Labs: Abnormal Lab Results - Last 24 Hours (Table) 06/22/22 06/24/22 06/24/22 Range/Units 10:32 11:18 11:18 WBC 17.8 H (3.8-10.6) k/uL RBC 2.34 L (4.30-5.90) m/uL Hgb 6.8 L* (13.0-17.5) gm/dL Hct 21.1 L (39.0-53.0) % RDW 18.7 H (11.5-15.5) % Neutrophils # 13.8 H (1.3-7.7) k/uL Chloride 109 H (98-107) mmol/L BUN 37 H (9-20) mg/dL Creatinine 1.31 H (0.66-1.25) mg/dL Glucose 134 H (74-99) mg/dL POC Glucose (mg/dL) (70-110) mg/dL Calcium 8.2 L (8.4-10.2) mg/dL Total Protein 5.6 L (6.3-8.2) g/dL Albumin 2.5 L (3.5-5.0) g/dL Crossmatch See Detail 06/24/22 06/24/22 06/24/22 Range/Units 11:42 16:12 20:15 WBC (3.8-10.6) k/uL RBC (4.30-5.90) m/uL Hgb (13.0-17.5) gm/dL Hct (39.0-53.0) % RDW (11.5-15.5) % Neutrophils # (1.3-7.7) k/uL Chloride (98-107) mmol/L BUN (9-20) mg/dL Creatinine (0.66-1.25) mg/dL Glucose (74-99) mg/dL POC Glucose (mg/dL) 151 H 132 H 140 H (70-110) mg/dL Calcium (8.4-10.2) mg/dL Total Protein (6.3-8.2) g/dL Albumin (3.5-5.0) g/dL Crossmatch 06/25/22 06/25/22 06/25/22 Range/Units 06:33 09:03 09:03 WBC 14.7 H (3.8-10.6) k/uL RBC 2.25 L (4.30-5.90) m/uL Hgb 6.5 L* (13.0-17.5) gm/dL Hct 21.0 L (39.0-53.0) % RDW 19.3 H (11.5-15.5) % Neutrophils # 11.4 H (1.3-7.7) k/uL Chloride 109 H (98-107) mmol/L BUN 30 H (9-20) mg/dL Creatinine 1.39 H (0.66-1.25) mg/dL Glucose 138 H (74-99) mg/dL POC Glucose (mg/dL) 128 H (70-110) mg/dL Calcium 8.0 L (8.4-10.2) mg/dL Total Protein (6.3-8.2) g/dL Albumin (3.5-5.0) g/dL Crossmatch Microbiology - Last 24 Hours (Table) 06/22/22 08:17 Blood Culture - Preliminary Blood No Growth after 72 hours 06/23/22 08:12 Blood Culture - Preliminary Blood
[2022-06-25] MEDS: HYDROmorphone 0.5 MG/0.5 ML SYRINGE IVP PRN ×2 (12:26→20:46)
[2022-06-25 13:00] LABS: Anisocytosis Slight; HCT 21.3 % (39.0-53.0); Hypochromasia Marked; MCH 29.3 pg (25.0-35.0); MCHC 31.2 g/dL (31.0-37.0); Macrocytosis Slight; Mean Platelet Volume 8.7; Platelet Count 257 k/uL (150-450); Poikilocytosis Moderate; RBC 2.27 m/uL (4.30-5.90); RDW 19.2 % (11.5-15.5); WBC 15.2 k/uL (3.8-10.6)
[2022-06-25 13:05] LABS: HGB 6.6 gm/dL (13.0-17.5)
--- NOTE | 2022-06-25 13:18 | P.PN ---
Subjective Progress Note Date: 06/25/22 Principal diagnosis: anemia At today's visit patient is resting comfortably in bed. He reports feeling okay today. EGD revealed no active GI bleed, mild gastritis. Colonoscopy showed no active GI bleed, scattered diverticulosis. Small bowel capsule study revealed active bleeding of the distal ileum versus right colon, possible diverticular bleed. GI recommends transfer to tertiary center for further evaluation. He denies abdominal pain nausea vomiting diarrhea. he has not had a bowel movement since colonoscopy. Hemoglobin 6.5 today, additional unit of PRBCs has been ord ered. Will also order one unit of platelets. No other reported complaints at this time Objective - Vital Signs Vital signs: Vital Signs Temp 97.2 F L 06/25/22 08:00 Pulse 73 06/25/22 12:00 Resp 16 06/25/22 12:00 BP 115/51 06/25/22 12:00 Pulse Ox 96 06/25/22 12:00 FiO2 21 06/21/22 08:42 Intake & Output 06/24/22 06/25/22 06/25/22 18:59 06:59 18:59 Intake Total 510 400 0 Output Total 200 400 300 Balance 310 0 -300 Intake: Oral 200 400 0 Blood Product 310 Rc As-1 Unit 310 [id number] Output: Urine 200 400 300 Other: Voiding Method Urinal Urinal # Bowel Movements 3 - Constitutional General appearance: Present: no acute distress, obese - EENT Eyes: Present: anicteric sclerae, EOMI ENT: Present: hearing grossly normal - Respiratory Details: breathing is even and unlabored - Cardiovascular Details: skin is warm and dry - Gastrointestinal General gastrointestinal: Present: soft. Absent: tenderness - Integumentary Integumentary: Present: pale - Neurologic Neurologic Comment(s): grossly intact - Musculoskeletal Musculoskeletal: Present: strength equal bilaterally - Psychiatric Psychiatric: Present: A&O x's 3, appropriate affect, intact judgment & insight - Labs CBC & Chem 7: 06/25/22 12:31 06/25/22 09:03 Labs: Abnormal Lab Results - Last 24 Hours (Table) 06/22/22 06/24/22 06/24/22 Range/Units 10:32 16:12 20:15 WBC (3.8-10.6) k/uL RBC (4.30-5.90) m/uL Hgb (13.0-17.5) gm/dL Hct (39.0-53.0) % RDW (11.5-15.5) % Neutrophils # (1.3-7.7) k/uL Chloride (98-107) mmol/L BUN (9-20) mg/dL Creatinine (0.66-1.25) mg/dL Glucose (74-99) mg/dL POC Glucose (mg/dL) 132 H 140 H (70-110) mg/dL Calcium (8.4-10.2) mg/dL Crossmatch See Detail 06/25/22 06/25/22 06/25/22 Range/Units 06:33 09:03 09:03 WBC 14.7 H (3.8-10.6) k/uL RBC 2.25 L (4.30-5.90) m/uL Hgb 6.5 L* (13.0-17.5) gm/dL Hct 21.0 L (39.0-53.0) % RDW 19.3 H (11.5-15.5) % Neutrophils # 11.4 H (1.3-7.7) k/uL Chloride 109 H (98-107) mmol/L BUN 30 H (9-20) mg/dL Creatinine 1.39 H (0.66-1.25) mg/dL Glucose 138 H (74-99) mg/dL POC Glucose (mg/dL) 128 H (70-110) mg/dL Calcium 8.0 L (8.4-10.2) mg/dL Crossmatch 06/25/22 06/25/22 Range/Units 11:46 12:31 WBC 15.2 H (3.8-10.6) k/uL RBC 2.27 L (4.30-5.90) m/uL Hgb 6.6 L* (13.0-17.5) gm/dL Hct 21.3 L (39.0-53.0) % RDW 19.2 H (11.5-15.5) % Neutrophils # (1.3-7.7) k/uL Chloride (98-107) mmol/L BUN (9-20) mg/dL Creatinine (0.66-1.25) mg/dL Glucose (74-99) mg/dL POC Glucose (mg/dL) 201 H (70-110) mg/dL Calcium (8.4-10.2) mg/dL Crossmatch Microbiology - Last 24 Hours (Table) 06/22/22 08:17 Blood Culture - Preliminary Blood No Growth after 72 hours 06/23/22 08:12 Blood Culture - Preliminary Blood Assessment and Plan (1) Anemia Current Visit: Yes Status: Acute Code(s): D64.9 - ANEMIA, UNSPECIFIED SNOMED Code(s): 623582584 (2) Bilateral lower leg cellulitis Current Visit: Yes Status: Acute Code(s): L03.116 - CELLULITIS OF LEFT LOWER LIMB; L03.115 - CELLULITIS OF RIGHT LOWER LIMB SNOMED Code(s): 609680205 (3) Bacteremia Current Visit: No Status: Acute Code(s): R78.81 - BACTEREMIA SNOMED Code(s): 7846561 Plan: Anemia: -Hemoglobin has ranged from 5.1-7.6 during admission and has received 10 units of PRBCs. Hemoglobin 6.5 today, additional unit PRBCs has been ordered. 1 unit of platelets have been ordered in the event of qualitative platelet defects contributing to bleeding -Iron studies revealed, iron 29, iron saturation 9.5%, and ferritin 41. Vitamin B12 and folate were low. Vitamin B12 and folate supplementation ordered. Will hold IV iron infusion at this time due to acute infection. -Tagged RBC scan showed a left upper quadrant to mid jejunal GI bleed. EGD revealed no active GI bleed, mild gastritis. Colonoscopy showed no active GI bleed, scattered diverticulosis. Small bowel capsule study revealed active bleeding of the distal ileum versus right colon, possible diverticular bleed. GI has recommended transfer to tertiary center for further evaluation. -Please continue to hold aspirin -Anemia likely related to acute GI bleed superimposed by chronic inflammation -Will continue to monitor counts. Please transfuse for hemoglobin less than 7 or symptomatic Bactermia/BLE wounds: -Blood cultures and wound culture positive. Repeat blood cultures negative at 72 hrs. Pt continues on cefepime, vanco, and flagyl -Defer management to IM/ID team
--- NOTE | 2022-06-25 13:19 | P.PN ---
Subjective Progress Note Date: 06/25/22 Principal diagnosis: Bilateral lower extremity ulcers cellulitis and bacteremia Patient is a 56-year male with a past medical history significant for CVA TIA coronary disease heart failure patient did have a history of bilateral lower extremity venous stasis ulcer, presented to hospital with weakness and syncopal episode patient did have worsening of bilateral lower extremity wound and cellulitis and did have evidence of bacteremia. Patient is status post EGD on 06/23/2022 with no source of bleeding, patient is status post colonoscopy on 06/24/2022 with no source of bleeding On today's evaluation that is 06/25/2022, the patient continues to be afebrile, the patient is breathing comfortably currently on 2L nasal cannula oxygen, the patient denies any chest pain or shortness of breath nausea nor vomiting and denies any worsening pain to lower extremity Objective - Vital Signs Vital signs: Vital Signs Temp 97.2 F L 06/25/22 08:00 Pulse 73 06/25/22 08:00 Resp 16 06/25/22 08:00 BP 121/52 06/25/22 08:00 Pulse Ox 99 06/25/22 08:00 FiO2 21 06/21/22 08:42 Intake & Output 06/24/22 06/25/22 06/25/22 18:59 06:59 18:59 Intake Total 510 400 0 Output Total 200 400 300 Balance 310 0 -300 Intake: Oral 200 400 0 Blood Product 310 Rc As-1 Unit 310 [id number] Output: Urine 200 400 300 Other: Voiding Method Urinal Urinal # Bowel Movements 3 - Exam GENERAL DESCRIPTION: A middle-age male lying in bed in no distress RESPIRATORY SYSTEM: Unlabored breathing , decreased breath sounds at bases HEART: S1 S2 regular rate and rhythm , ABDOMEN: Soft , no tenderness EXTREMITIES: Bilateral lower extremity currently wrapped no drainage on the dressing - Labs CBC & Chem 7: 06/25/22 12:31 06/25/22 09:03 Labs: Abnormal Lab Results - Last 24 Hours (Table) 06/22/22 06/24/22 06/24/22 Range/Units 10:32 16:12 20:15 WBC (3.8-10.6) k/uL RBC (4.30-5.90) m/uL Hgb (13.0-17.5) gm/dL Hct (39.0-53.0) % RDW (11.5-15.5) % Neutrophils # (1.3-7.7) k/uL Chloride (98-107) mmol/L BUN (9-20) mg/dL Creatinine (0.66-1.25) mg/dL Glucose (74-99) mg/dL POC Glucose (mg/dL) 132 H 140 H (70-110) mg/dL Calcium (8.4-10.2) mg/dL Crossmatch See Detail 06/25/22 06/25/22 06/25/22 Range/Units 06:33 09:03 09:03 WBC 14.7 H (3.8-10.6) k/uL RBC 2.25 L (4.30-5.90) m/uL Hgb 6.5 L* (13.0-17.5) gm/dL Hct 21.0 L (39.0-53.0) % RDW 19.3 H (11.5-15.5) % Neutrophils # 11.4 H (1.3-7.7) k/uL Chloride 109 H (98-107) mmol/L BUN 30 H (9-20) mg/dL Creatinine 1.39 H (0.66-1.25) mg/dL Glucose 138 H (74-99) mg/dL POC Glucose (mg/dL) 128 H (70-110) mg/dL Calcium 8.0 L (8.4-10.2) mg/dL Crossmatch 06/25/22 Range/Units 11:46 WBC (3.8-10.6) k/uL RBC (4.30-5.90) m/uL Hgb (13.0-17.5) gm/dL Hct (39.0-53.0) % RDW (11.5-15.5) % Neutrophils # (1.3-7.7) k/uL Chloride (98-107) mmol/L BUN (9-20) mg/dL Creatinine (0.66-1.25) mg/dL Glucose (74-99) mg/dL POC Glucose (mg/dL) 201 H (70-110) mg/dL Calcium (8.4-10.2) mg/dL Crossmatch Microbiology - Last 24 Hours (Table) 06/22/22 08:17 Blood Culture - Preliminary Blood No Growth after 72 hours 06/23/22 08:12 Blood Culture - Preliminary Blood Assessment and Plan (1) Bacteremia Current Visit: Yes Status: Acute Code(s): R78.81 - BACTEREMIA SNOMED Code(s): 4555128 (2) Bilateral lower leg cellulitis Current Visit: Yes Status: Acute Code(s): L03.116 - CELLULITIS OF LEFT LOWER LIMB; L03.115 - CELLULITIS OF RIGHT LOWER LIMB SNOMED Code(s): 495401873 Plan: 1patient with bilateral lower extremity venous stasis ulcer and a component of cellulitis likely from gram-positive skin ani such as strep or Staph aureus 2-patient with MRSA bacteremia likely related to bilateral extremity wound and c ellulitis, blood cultures growing MRSA and Streptococcus along with a copious negative staph, the patient local wound culture from the leg wounds are growing MRSA Morganella and anaerobe and gram-negative bacilli, patient seemed to have cleared his bacteremia as a blood culture on 06/22/2022 has been negative so for 3-patient currently being treated with vancomycin, cefepime and Flagyl , along with local wound care as ordered and monitor clinical course closely Time with Patient: Less than 30
--- NOTE | 2022-06-25 13:28 | P.PN ---
Subjective Progress Note Date: 06/25/22 This is a 56-year-old male patient who presented to the ER with concerns of weakness in lower extremity wounds. Patient reports he has had increasing weakness prompting him to call EMS for further assistance Patient has not been into see his primary care doctor in almost years has not taken his medications in over a year. Patient reports that he did not have easy accessibility to rides and getting out of the house. Patient reports he has been dealing with lower extremity wounds that he has been treating at home without improvement. Patient has a past medical history of hypertension, coronary artery disease, CVA, chronic renal disease. Chest x-ray completed showing no definitive acute radiographic process. Troponin negative. WBC 18.7. Hemoglobin 7.6.. At this time patient has been started on IV antibiotics blood cultures ordered. Wound cultures ordered. Infectious disease and wound care service is consulted. Will reorder home medication according to most recent PCP visit. We'll also consult PT OT and social work services for discharge planning and assessment of home situation On 06/19/2022 patient was seen and examined on the medical he is alert and oriented 3 in no apparent distress he is complaining of bilateral lower extremity pain at the sites of cellulitis and ulcers, he is also complaining of back pain and feeling uncomfortable in bed, otherwise he denies any complaints, there is no fever or chills no headache or dizziness no chest pain no shortness of breath no cough, no nausea or vomiting no abdominal pain no diarrhea and no urinary symptoms, hemoglobin continues to drop, patient received 1 unit of red blood cell transfusion yesterday, however today his hemoglobin has dropped to 5.8, a second unit of red blood cell transfusion was ordered this morning, will continue to monitor hemoglobin closely. Stools for Hemoccult was sent results are still pending. White blood count is improving down to 13.5 today, patient remains on IV antibiotics for bilateral lower extremity cellulitis. IV Protonix was added to medication regimen, computed tomography scan of the abdomen and pelvis was ordered by surgery for evaluation, will continue to follow closely. Prognosis is guarded. On 06/20/2022 patient is currently resting comfortably in bed alert and oriented 3. Per nursing staff patient had one dark stool last night awaiting hemoglobin level to assess if patient needs blood transfusion. Plans for EGD tomorrow per surgical services did also discuss case with neurologist Dr. Simpson patient never had the diagnosis of Parkinson's does not require any initiation of Parkinson's medication. Patient was on levodopa due to tremors post CVA. Patient remains on Maxipime and vancomycin. At this time patient denies chest pain or shortness breath. Patient denies nausea vomiting or diarrhea. Patient denies any urinary burning or frequency. CT of abdomen and pelvis showing no acute abdominal pelvic process On 06/21/2022 patient is alert and oriented 3. Patient currently getting transferred for EGD. Hemoglobin 5.1. 2 units of PRBCs have been ordered. This was discussed with nurse. Current vital signs temp 98.1, pulse rate 86, respiratory rate 19, blood pressure 110/51 with a pulse ox 98% on 2 L. Patient remains on IV Maxipime and vancomycin. Patient underwent EGD today with Dr. Godoy, patient had retained food in the stomach which limited the evaluation however there was no clear evidence of bleeding on EGD, intact red blood cell nuclear scan was ordered and gastroenterology consultation was requested hemoglobin today is down to 5.12 units of red blood cell transfusion were ordered, hematology consultation also requested , will check vitamin B12 and folate level , will continue to monitor closely On 06/22/2022 patient was seen and examined on the medical floor he is alert and oriented 3 in no apparent distress he is complaining of bilateral lower extremity pain and complaining of low back pain otherwise he denies any complaints there is no fever or chills no headache or dizziness no chest pain no shortness of breath no cough no nausea or vomiting no abdominal pain no diarrhea no burning with urination no frequency or urgency and no hematuria. Yesterday he underwent EGD with Dr. Godoy, he also underwent RBC tagged nuclear scan which revealed evidence of active GI bleeding, gastroenterology consultation was requested and he is scheduled for repeat EGD tomorrow. Patient is receiving IV antibiotic for bilateral lower extremity cellulitis with ulcers, he is also receiving red blood cell transfusion as needed for hemoglobin below 7 On 06/23/2022 patient is alert and oriented times the. Discussed with nursing staff plan for EGD with GI services Dr. Serrato today. Hemoglobin 6.01 unit of PRBCs ordered. Patient remains on IV vancomycin and Maxipime. Flagyl also added per infectious disease services at this time vitals have remained stable. Per nursing staff patient still having dark stools no vomiting. Temp 98.2, heart rate 84, history rate 18, blood pressure 133/64 with pulse ox 98% on 2 L. Infectious disease, surgical services, GI services, hematology services and nephrology services following. On 06/24/2022 patient was seen and examined the medical floor is alert and oriented 3 distress there is no fever or chills no headache or dizziness no chest pain no shortness of breath no cough no nausea or vomiting no abdominal pain no diarrhea and no urinary symptoms, hemoglobin today 6.81 more unit of red blood cell transfusion was ordered, patient is scheduled for colonoscopy was Dr. Serrato today, will continue to follow closely On 06/25/2022 patient was seen and examined the medical floor is alert and oriented 3 distress there is no fever or chills no headache or dizziness no chest pain no shortness of breath no cough no nausea or vomiting no abdominal pain no diarrhea and no urinary symptoms, hemoglobin today 6.8 more unit of red blood cell transfusion was ordered. Recommendation from surgery and gastroenterology is to transfer patient to a tertiary care center. Initial call was made to [facility], patient was accepted for transfer, pending bed availability. Objective - Vital Signs Vital signs: Vital Signs Temp 97.2 F L 06/25/22 08:00 Pulse 73 06/25/22 12:00 Resp 16 06/25/22 12:00 BP 115/51 06/25/22 12:00 Pulse Ox 96 06/25/22 12:00 FiO2 21 06/21/22 08:42 Intake & Output 06/24/22 06/25/22 06/25/22 18:59 06:59 18:59 Intake Total 510 400 0 Output Total 200 400 300 Balance 310 0 -300 Intake: Oral 200 400 0 Blood Product 310 Rc As-1 Unit 310 [id number] Output: Urine 200 400 300 Other: Voiding Method Urinal Urinal # Bowel Movements 3 - Exam In general patient is alert and oriented 3 Head normocephalic and atraumatic Neck supple no JVD no goiter Lungs clear to auscultation bilaterally no wheezing or crackles Heart regular rate and rhythm S1-S2, no rub or gallop Abdomen is soft nontender nondistended positive bowel sounds no hepatosplenomegaly Extremities bilateral lower extremity wounds and cellulitis. Serosanguineous drainage noted Neuro no gross focal deficit - Labs CBC & Chem 7: 06/25/22 12:31 06/25/22 09:03 Labs: Abnormal Lab Results - Last 24 Hours (Table) 06/22/22 06/24/22 06/24/22 Range/Units 10:32 16:12 20:15 WBC (3.8-10.6) k/uL RBC (4.30-5.90) m/uL Hgb (13.0-17.5) gm/dL Hct (39.0-53.0) % RDW (11.5-15.5) % Neutrophils # (1.3-7.7) k/uL Chloride (98-107) mmol/L BUN (9-20) mg/dL Creatinine (0.66-1.25) mg/dL Glucose (74-99) mg/dL POC Glucose (mg/dL) 132 H 140 H (70-110) mg/dL Calcium (8.4-10.2) mg/dL Crossmatch See Detail 06/25/22 06/25/22 06/25/22 Range/Units 06:33 09:03 09:03 WBC 14.7 H (3.8-10.6) k/uL RBC 2.25 L (4.30-5.90) m/uL Hgb 6.5 L* (13.0-17.5) gm/dL Hct 21.0 L (39.0-53.0) % RDW 19.3 H (11.5-15.5) % Neutrophils # 11.4 H (1.3-7.7) k/uL Chloride 109 H (98-107) mmol/L BUN 30 H (9-20) mg/dL Creatinine 1.39 H (0.66-1.25) mg/dL Glucose 138 H (74-99) mg/dL POC Glucose (mg/dL) 128 H (70-110) mg/dL Calcium 8.0 L (8.4-10.2) mg/dL Crossmatch 06/25/22 Range/Units 11:46 WBC (3.8-10.6) k/uL RBC (4.30-5.90) m/uL Hgb (13.0-17.5) gm/dL Hct (39.0-53.0) % RDW (11.5-15.5) % Neutrophils # (1.3-7.7) k/uL Chloride (98-107) mmol/L BUN (9-20) mg/dL Creatinine (0.66-1.25) mg/dL Glucose (74-99) mg/dL POC Glucose (mg/dL) 201 H (70-110) mg/dL Calcium (8.4-10.2) mg/dL Crossmatch Microbiology - Last 24 Hours (Table) 06/22/22 08:17 Blood Culture - Preliminary Blood No Growth after 72 hours 06/23/22 08:12 Blood Culture - Preliminary Blood Assessment and Plan Plan: 1. Lower extremity cellulitis with elevated white blood cell count and positive wound and blood cultures 2. Noncompliance with medication patient reports he has not been taking his meds in over here and has not seen his PCP in over 2 years 3. History of CVA 4. Morbid obesity 5. History of essential hypertension 6. Diabetes mellitus type 2. Hemoglobin A1c 6.8. Patient has not taken medication in over a year 7. Chronic venous stasis 8. Patient previously on levodopa due to tremors post CVA discussed case with neurologist patient does not require any further medication 9. Anemia with positive occult blood. Plans for EGD on Tuesday per surgical services 10. Hyperkalemia potassium 5.6 11. Acute kidney injury creatinine 1.3 bun 52 on presentation. nephrology services are following DVT prophylaxis SCDs due to anemia Infectious disease consulted for lower extremity cellulitis patient maintained on IV antibiotics Per neurology patient never had the diagnosis of Parkinson's disease does not require any further medication. Recommendations of initiation of aspirin once surgical clearance Patient has been transfused with 8 units of PRBCs EGD completed on 06/21/2022 Tagged RBC scan completed showing findings suggestive of left upper quadrant proximal to mid duodenal GI bleed EGD scheduled with push enteroscopy 06/23/[address] Serrato
[2022-06-25 15:06] VITALS: TEMP 98.7
[2022-06-25 16:31] LABS: Glucose,Whole Blood 140 mg/dL (70-110)
[2022-06-25 20:22] LABS: Glucose,Whole Blood 152 mg/dL (70-110)
[2022-06-25 20:43] VITALS: BP 126/60; PULSE 75; RESP 18
--- NOTE | 2022-06-30 09:58 | P.DS ---
Providers Date of admission: 06/17/22 20:24 Expected date of discharge: 06/25/22 Attending physician: Cecilia Tomlinson Consults: 06/17/22 20:24 Consult Physician Urgent Consulting Provider: Peewee Limon Consult Reason/Comments: leg cellulitis Do you want consulting provider notified?: Yes 06/18/22 11:24 Consult Physician Routine Consulting Provider: Bharat Simpson Consult Reason/Comments: History of Parkinson's disease patient taking m edication for over a year Do you want consulting provider notified?: Yes 06/19/22 14:03 Consult Physician Routine Consulting Provider: Ludivina Godoy Consult Reason/Comments: anemia Do you want consulting provider notified?: Already Contacted 06/21/22 09:54 Consult Physician Stat Consulting Provider: Stephanie Serrato Consult Reason/Comments: Acute GI Bleed Do you want consulting provider notified?: Yes 06/21/22 10:00 Consult Physician Routine Consulting Provider: Ericka Bean Consult Reason/Comments: Acute kidney injury, hyperkalemia Do you want consulting provider notified?: Yes 06/21/22 11:15 Consult Physician Routine Consulting Provider: Moshe Arreaga Consult Reason/Comments: anemia Do you want consulting provider notified?: Yes Primary care physician: Cecilia Tomlinson Hospital Course: Discharge diagnosis Patient transferred to [facility] for higher level of care 1. Lower extremity cellulitis with elevated white blood cell count and positive wound and blood cultures 2. Noncompliance with medication patient reports he has not been taking his meds in over here and has not seen his PCP in over 2 years 3. History of CVA 4. Morbid obesity 5. History of essential hypertension 6. Diabetes mellitus type 2. Hemoglobin A1c 6.8. Patient has not taken medication in over a year 7. Chronic venous stasis 8. Patient previously on levodopa due to tremors post CVA discussed case with neurologist patient does not require any further medication 9. Anemia with positive occult blood. Plans for EGD on Tuesday per surgical services 10. Hyperkalemia potassium 5.6 11. Acute kidney injury creatinine 1.3 bun 52 on presentation. nephrology s ervices are following Per neurology patient never had the diagnosis of Parkinson's disease does not require any further medication. Recommendations of initiation of aspirin once surgical clearance Patient has been transfused with 8 units of PRBCs EGD completed on 06/21/2022 Tagged RBC scan completed showing findings suggestive of left upper quadrant proximal to mid duodenal GI bleed hospital course This is a 56-year-old male patient who presented to the ER with concerns of weakness in lower extremity wounds. Patient reports he has had increasing weakness prompting him to call EMS for further assistance Patient has not been into see his primary care doctor in almost years has not taken his medications in over a year. Patient reports that he did not have easy accessibility to rides and getting out of the house. Patient reports he has been dealing with lower extremity wounds that he has been treating at home without improvement. Patient has a past medical history of hypertension, coronary artery disease, CVA, chronic renal disease. Chest x-ray completed showing no definitive acute radiographic process. Troponin negative. WBC 18.7. Hemoglobin 7.6.. At this time patient has been started on IV antibiotics blood cultures ordered. Wound cultures ordered. Infectious disease and wound care service is consulted. Will reorder home medication according to most recent PCP visit. We'll also consult PT OT and social work services for discharge planning and assessment of home situation On 06/19/2022 patient was seen and examined on the medical he is alert and oriented 3 in no apparent distress he is complaining of bilateral lower extremity pain at the sites of cellulitis and ulcers, he is also complaining of back pain and feeling uncomfortable in bed, otherwise he denies any complaints, there is no fever or chills no headache or dizziness no chest pain no shortness of breath no cough, no nausea or vomiting no abdominal pain no diarrhea and no urinary symptoms, hemoglobin continues to drop, patient received 1 unit of red blood cell transfusion yesterday, however today his hemoglobin has dropped to 5.8, a second unit of red blood cell transfusion was ordered this morning, will continue to monitor hemoglobin closely. Stools for Hemoccult was sent results are still pending. White blood count is improving down to 13.5 today, patient remains on IV antibiotics for bilateral lower extremity cellulitis. IV Protonix was added to medication regimen, computed tomography scan of the abdomen and pelvis was ordered by surgery for evaluation, will continue to follow closely. Prognosis is guarded. On 06/20/2022 patient is currently resting comfortably in bed alert and oriented 3. Per nursing staff patient had one dark stool last night awaiting hemoglobin level to assess if patient needs blood transfusion. Plans for EGD tomorrow per surgical services did also discuss case with neurologist Dr. Simpson patient never had the diagnosis of Parkinson's does not require any initiation of Parkinson's medication. Patient was on levodopa due to tremors post CVA. Patient remains on Maxipime and vancomycin. At this time patient denies chest pain or shortness breath. Patient denies nausea vomiting or diarrhea. Patient denies any urinary burning or frequency. CT of abdomen and pelvis showing no acute abdominal pelvic process On 06/21/2022 patient is alert and oriented 3. Patient currently getting transferred for EGD. Hemoglobin 5.1. 2 units of PRBCs have been ordered. This was discussed with nurse. Current vital signs temp 98.1, pulse rate 86, respiratory rate 19, blood pressure 110/51 with a pulse ox 98% on 2 L. Patient remains on IV Maxipime and vancomycin. Patient underwent EGD today with Dr. Godoy, patient had retained food in the stomach which limited the evaluation however there was no clear evidence of bleeding on EGD, intact red blood cell nuclear scan was ordered and gastroenterology consultation was requested hemoglobin today is down to 5.12 units of red blood cell transfusion were ordered, hematology consultation also requested , will check vitamin B12 and folate level , will continue to monitor closely On 06/22/2022 patient was seen and examined on the medical floor he is alert and oriented 3 in no apparent distress he is complaining of bilateral lower extremity pain and complaining of low back pain otherwise he denies any complaints there is no fever or chills no headache or dizziness no chest pain no shortness of breath no cough no nausea or vomiting no abdominal pain no diarrhea no burning with urination no frequency or urgency and no hematuria. Yesterday he underwent EGD with Dr. Godoy, he also underwent RBC tagged nuclear scan which revealed evidence of active GI bleeding, gastroenterology consultation was requested and he is scheduled for repeat EGD tomorrow. Patient is receiving IV antibiotic for bilateral lower extremity cellulitis with ulcers, he is also r eceiving red blood cell transfusion as needed for hemoglobin below 7 On 06/23/2022 patient is alert and oriented times the. Discussed with nursing staff plan for EGD with GI services Dr. Serrato today. Hemoglobin 6.01 unit of PRBCs ordered. Patient remains on IV vancomycin and Maxipime. Flagyl also added per infectious disease services at this time vitals have remained stable. Per nursing staff patient still having dark stools no vomiting. Temp 98.2, heart rate 84, history rate 18, blood pressure 133/64 with pulse ox 98% on 2 L. Infectious disease, surgical services, GI services, hematology services and nephrology services following. On 06/24/2022 patient was seen and examined the medical floor is alert and oriented 3 distress there is no fever or chills no headache or dizziness no chest pain no shortness of breath no cough no nausea or vomiting no abdominal pain no diarrhea and no urinary symptoms, hemoglobin today 6.81 more unit of red blood cell transfusion was ordered, patient is scheduled for colonoscopy was Dr. Serrato today, will continue to follow closely On 06/25/2022 patient was seen and examined the medical floor is alert and oriented 3 distress there is no fever or chills no headache or dizziness no chest pain no shortness of breath no cough no nausea or vomiting no abdominal pain no diarrhea and no urinary symptoms, hemoglobin today 6.8 more unit of red blood cell transfusion was ordered. Recommendation from surgery and gastroenterology is to transfer patient to a tertiary care center. Initial call was made to [facility], patient was accepted for transfer, pending bed availability. Patient Condition at Discharge: Serious Plan - Discharge Summary Discharge Rx Participant: No New Discharge Prescriptions: No Action No Known Home Medications Discharge Medication List No Known Home Medications 06/17/22 [History] Follow up Appointment(s)/Referral(s): Cecilia Tomlinson MD [Primary Care Provider] - 1-2 days [facility] Visiting Nurse, [NON-STAFF] - Discharge/Stand Alone Forms: Who Do I Call?, Community Resources, Outpatient Counseling, Personal Provider Network Mgr Discharge Disposition: TRANSFER TO SHORT TERM HOSP
== END 2022-06-25 22:26 | disposition short-term general hospital (02) | DRG 602 ==
LOC: EC 16:57 → 5NMEDONC 20:24 → 3SCARD 06-19 16:50
PROVIDERS: ADMIT Internal Medicine; ATTEND Internal Medicine
PROC: 30233N1 Transfusion of Nonautologous Red Blood Cells into Peripheral Vein, Percutaneous Approach (ICD-10-PCS; principal; 2022-06-18)
PROC: 0DJ08ZZ Inspection of Upper Intestinal Tract, Via Natural or Artificial Opening Endoscopic (ICD-10-PCS; 2022-06-21)
PROC: 0DJ08ZZ Inspection of Upper Intestinal Tract, Via Natural or Artificial Opening Endoscopic (ICD-10-PCS; 2022-06-23)
PROC: 0DJD8ZZ Inspection of Lower Intestinal Tract, Via Natural or Artificial Opening Endoscopic (ICD-10-PCS; 2022-06-23)
PROC: 0DJD8ZZ Inspection of Lower Intestinal Tract, Via Natural or Artificial Opening Endoscopic (ICD-10-PCS; 2022-06-24)
PROC: 0DJ07ZZ Inspection of Upper Intestinal Tract, Via Natural or Artificial Opening (ICD-10-PCS; 2022-06-24)
DX: L03.115 Cellulitis of right lower limb (principal); N17.0 Acute kidney failure with tubular necrosis; R78.81 Bacteremia; Z68.43 Body mass index [BMI] 50.0-59.9, adult; D62 Acute posthemorrhagic anemia; K22.10 Ulcer of esophagus without bleeding; I13.0 Hypertensive heart and chronic kidney disease with heart failure and stage 1 through stage 4 chronic kidney disease, or unspecified chronic kidney disease; L97.222 Non-pressure chronic ulcer of left calf with fat layer exposed; L97.212 Non-pressure chronic ulcer of right calf with fat layer exposed; I83.212 Varicose veins of right lower extremity with both ulcer of calf and inflammation; I83.222 Varicose veins of left lower extremity with both ulcer of calf and inflammation; K92.1 Melena; D63.1 Anemia in chronic kidney disease; I50.9 Heart failure, unspecified; L97.522 Non-pressure chronic ulcer of other part of left foot with fat layer exposed; L97.512 Non-pressure chronic ulcer of other part of right foot with fat layer exposed; E11.622 Type 2 diabetes mellitus with other skin ulcer; E11.621 Type 2 diabetes mellitus with foot ulcer; E11.22 Type 2 diabetes mellitus with diabetic chronic kidney disease; E11.51 Type 2 diabetes mellitus with diabetic peripheral angiopathy without gangrene; E11.43 Type 2 diabetes mellitus with diabetic autonomic (poly)neuropathy; G20 Parkinson's disease; N18.31 Chronic kidney disease, stage 3a; E66.01 Morbid (severe) obesity due to excess calories; Z20.822 Contact with and (suspected) exposure to COVID-19; Z28.310 Unvaccinated for COVID-19; K29.70 Gastritis, unspecified, without bleeding; L03.116 Cellulitis of left lower limb; K31.84 Gastroparesis; B95.62 Methicillin resistant Staphylococcus aureus infection as the cause of diseases classified elsewhere; G89.29 Other chronic pain; I25.10 Atherosclerotic heart disease of native coronary artery without angina pectoris; M54.50 Low back pain, unspecified; K44.9 Diaphragmatic hernia without obstruction or gangrene; N20.0 Calculus of kidney; K57.30 Diverticulosis of large intestine without perforation or abscess without bleeding; G47.33 Obstructive sleep apnea (adult) (pediatric); F41.9 Anxiety disorder, unspecified; F32.A Depression, unspecified; E87.5 Hyperkalemia; E78.5 Hyperlipidemia, unspecified; T50.916A Underdosing of multiple unspecified drugs, medicaments and biological substances, initial encounter; Z91.128 Patient's intentional underdosing of medication regimen for other reason; Z91.199 Patient's noncompliance with other medical treatment and regimen due to unspecified reason; Z87.442 Personal history of urinary calculi; Z86.73 Personal history of transient ischemic attack (TIA), and cerebral infarction without residual deficits; Z71.3 Dietary counseling and surveillance; Z88.0 Allergy status to penicillin; Z88.8 Allergy status to other drugs, medicaments and biological substances; Z91.010 Allergy to peanuts
CPT/HCPCS: 36415; 43235; 45378; 70450; 71046; 74176; 78278; 80048; 80053; 80202; 81003; 82272; 82525; 82565; 82607; 82728; 82746; 83036; 83540; 83550; 83605; 83735; 83880; 83921; 84443; 84484; 85025; 85027; 85610; 85652; 85730; 86140; 86850; 86900; 86901; 86920; 87040; 87070; 87075; 87077; 87186; 87205; 87635; 91110; 93005; 94760; 96365; 96366; 96367; 96368; 96375; 99285

== ENCOUNTER 2022-07-03 12:16 | Emergency (ER) | payer MEDICARE ==
[2022-07-03 12:24] VITALS: RESP 20; TEMP 98.7
--- NOTE | 2022-07-03 12:42 | ED ---
General Adult HPI - General Chief complaint: Extremity Injury, Upper Stated complaint: Possible DVT Time Seen by Provider: 07/03/22 12:28 Source: patient, EMS, RN notes reviewed Mode of arrival: EMS Limitations: no limitations - History of Present Illness Initial comments: Patient is a pleasant 57-year-old male presenting to the emergency department with concern for upper extremity DVT. Patient has been having some discomfort pain and swelling and redness of the right upper extremity for the past couple of days. Patient did have IVs in this area as he was hospitalized for 12 days secondary to skin problems of his legs and chronic venous insufficiency. Patient also had complicated hospitalization associated with upper GI bleed. No chest pain or difficulty breathing. No bleeding at this time. - Related Data Home Medications Medication Instructions Recorded Confirmed Acetaminophen Tab [Tylenol] 650 mg PO Q6H PRN 07/03/22 07/03/22 Ammonium Lactate Cream [Lac-Hydrin 1 applic TOPICAL HS 07/03/22 07/03/22 12% Cream] Aspirin EC [Ecotrin Low Dose] 81 mg PO DAILY 07/03/22 07/03/22 Atorvastatin [Lipitor] 40 mg PO HS 07/03/22 07/03/22 Clotrimazole/Betameth Cream 1 applic TOPICAL BID 07/03/22 07/03/22 [Lotrisone] Collagenase [Santyl Ointment] 1 applic TOPICAL HS 07/03/22 07/03/22 Pantoprazole Sodium [Protonix] 40 mg PO BID 07/03/22 07/03/22 diphenhydrAMINE & Zinc Cream 1 applic TOPICAL TID PRN 07/03/22 07/03/22 [Benadryl Cream] predniSONE 40 mg PO DAILY 07/03/22 07/03/22 Allergies Allergy/AdvReac Type Severity Reaction Status Date / Time Penicillins Allergy Unknown Unknown Verified 07/03/22 12:52 Childhood adhesive Allergy Rash/Hives Verified 07/03/22 12:52 peanut AdvReac Nausea & Verified 07/03/22 12:52 Vomiting Review of Systems ROS Statement: Those systems with pertinent positive or pertinent negative responses have been documented in the HPI. ROS Other: All systems not noted in ROS Statement are negative. Constitutional: Denies: fever Eyes: Denies: eye pain ENT: Denies: ear pain Respiratory: Denies: cough, dyspnea Cardiovascular: Denies: chest pain Endocrine: Denies: fatigue Gastrointestinal: Denies: abdominal pain Genitourinary: Denies: dysuria Musculoskeletal: Denies: back pain Skin: Reports: as per HPI, rash (Redness to right arm) Neurological: Denies: headache Past Medical History Past Medical History: Blood Disorder, Coronary Artery Disease (CAD), Heart Failure, CVA/TIA, Diabetes Mellitus, Hyperlipidemia, Hypertension, Renal Disease, Sleep Apnea/CPAP/BIPAP Additional Past Medical History / Comment(s): Chronic back pain; USES C-PAP; kidney stones, RENAL FAILURE; NEUROPATHY. WEARS COPPER FITBOOTS D/T PVD. POSS CVA 10/2013, PVD History of Any Multi-Drug Resistant Organisms: MRSA, VRE Date of last positivie culture/infection: 05/09/19-MRSA; 07/05/08-VRE MDRO Source:: Right Leg-MRSA; VRE Leg wound Additional Past Surgical History / Comment(s): kidney stones removed, HX DRAINAGE TUBE, CYSTOSCOPY; DEBRIDMENTS TO LEGS X6 IN 2008 Past Anesthesia/Blood Transfusion Reactions: No Reported Reaction Past Psychological History: Anxiety, Depression Smoking Status: Never smoker Past Alcohol Use History: None Reported Past Drug Use History: None Reported - Past Family History Mother Family Medical History: Cancer Father Family Medical History: Hypertension General Exam Limitations: no limitations General appearance: alert, in no apparent distress Head exam: Present: normocephalic Eye exam: Present: normal appearance Respiratory exam: Present: normal lung sounds bilaterally Cardiovascular Exam: Present: regular rate, normal rhythm GI/Abdominal exam: Present: soft. Absent: tenderness Extremities exam: Present: other (Bilateral legs with venous insufficiency changes. Right upper extremity with swelling and tenderness and erythema) Neurological exam: Present: alert Psychiatric exam: Present: normal affect, normal mood Skin exam: Present: erythema Course Vital Signs 07/03/22 12:20 Temperature 98.7 F Pulse Rate 64 Respiratory 20 Rate Blood Pressure 143/72 O2 Sat by Pulse 100 Oximetry Medical Decision Making - Medical Decision Making Was pt. sent in by a medical professional or institution (, PA, SUSTAINABILITY COACH, urgent care, hospital, or halfway...) When possible be specific @ -Patient was sent from nursing facility Did you speak to anyone other than the patient for history (EMS, parent, family, police, friend...)? What history was obtained from this source @ -EMS also provided history Did you review nursing and triage notes (agree or disagree)? Why? @ -I reviewed and agree with nursing and triage notes Were old charts reviewed (outside hosp., previous admission, EMS record, old EKG, old radiological studies, urgent care reports/EKG's, halfway records)? Report findings @ -Previous admission reviewed Differential Diagnosis (chest pain, altered mental status, abdominal pain women, abdominal pain men, vaginal bleeding, weakness, fever, dyspnea, syncope, headache, dizziness, GI bleed, back pain, seizure, CVA, palpatations, mental health)? @ -not applicable EKG interpreted by me (3pts min.). @ -As above X-rays interpreted by me (1pt min.). @ -. Two-view chest x-ray shows low lung volumes. Cardiomegaly. CT interpreted by me (1pt min.). @ - U/S interpreted by me (1pt. min.). @ -Report reviewed What testing was considered but not performed or refused? (CT, X-rays, U/S, lab s)? Why? @ -None What meds were considered but not given or refused? Why? @ -None Did you discuss the management of the patient with other professionals (professionals i.e. , PA, SUSTAINABILITY COACH, lab, RT, psych nurse, social services analyst, manager clinical informatics, teacher, deputy juvenile officer, corrections caseworker)? Give summary @ -Case was discussed with Dr. Tomlinson who is familiar with this patient. He agrees with discharge and holding anticoagulation, especially with patient's recent history of GI bleed Was smoking cessation discussed for >3mins.? @ -No Was critical care preformed (if so, how long)? @ -No Were there social determinants of health that impacted care today? How? (Homelessness, low income, unemployed, alcoholism, drug addiction, tr ansportation, low edu. Level, literacy, decrease access to med. care, alf, rehab)? @ -No Was there de-escalation of care discussed even if they declined (Discuss DNR or withdrawal of care, Hospice)? DNR status @ -No What co-morbidities impacted this encounter? (DM, HTN, Smoking, COPD, CAD, Cancer, CVA, ARF, Chemo, Hep., AIDS, mental health diagnosis, sleep apnea, morbid obesity)? @ -None Was patient admitted / discharged? Hospital course, mention meds given and route, prescriptions, significant lab abnormalities, going to OR and other pertinent info. @ -Patient has superficial thrombosis. No evidence of deep thrombosis. Patient will be discharged to continue aspirin. Undiagnosed new problem with uncertain prognosis? @ -No Drug Therapy requiring intensive monitoring for toxicity (Heparin, Nitro, Insulin, Cardizem)? @ -No Were any procedures done? @ -No Diagnosis/symptom? @ -Superficial thrombosis Acute, or Chronic, or Acute on Chronic? @ -Acute Uncomplicated (without systemic symptoms) or Complicated (systemic symptoms)? @ -default Side effects of treatment? @ -No Exacerbation, Progression, or Severe Exacerbation? @ -No Poses a threat to life or bodily function? How? (Chest pain, [place], [place], pneumonia, PE, COPD, DKA, ARF, appy, cholecystitis, CVA, Diverticulitis, Homicidal, Suicidal, threat to staff... and all critical care pts) @ -No - Lab Data Result diagrams: 07/03/22 13:51 07/03/22 12:57 Lab Results 07/03/22 07/03/22 07/03/22 Range/Units 12:57 13:51 13:51 WBC 13.0 H (3.8-10.6) k/uL RBC 3.13 L (4.30-5.90) m/uL Hgb 8.6 L D (13.0-17.5) gm/dL Hct 30.1 L (39.0-53.0) % MCV 96.1 (80.0-100.0) fL MCH 27.6 (25.0-35.0) pg MCHC 28.7 L (31.0-37.0) g/dL RDW 17.4 H (11.5-15.5) % Plt Count 373 (150-450) k/uL MPV 7.9 Neutrophils % 90 % Lymphocytes % 5 % Monocytes % 4 % Eosinophils % 2 % Basophils % 0 % Neutrophils # 11.7 H (1.3-7.7) k/uL Lymphocytes # 0.6 L (1.0-4.8) k/uL Monocytes # 0.5 (0-1.0) k/uL Eosinophils # 0.2 (0-0.7) k/uL Basophils # 0.0 (0-0.2) k/uL Hypochromasia Marked Poikilocytosis Marked Anisocytosis Slight Macrocytosis Slight PT 11.0 (9.0-12.0) sec INR 1.1 (<1.2) APTT 22.5 (22.0-30.0) sec Sodium 142 (137-145) mmol/L Potassium 5.8 H (3.5-5.1) mmol/L Chloride 105 (98-107) mmol/L Carbon Dioxide 31 H (22-30) mmol/L Anion Gap 6 mmol/L BUN 20 (9-20) mg/dL Creatinine 1.29 H (0.66-1.25) mg/dL Est GFR (CKD-EPI)AfAm 70 (>60 ml/min/1.73 sqM) Est GFR (CKD-EPI)NonAf 60 (>60 ml/min/1.73 sqM) Glucose 150 H (74-99) mg/dL Calcium 8.3 L (8.4-10.2) mg/dL Total Bilirubin 0.4 (0.2-1.3) mg/dL AST 17 (17-59) U/L ALT 11 (4-49) U/L Alkaline Phosphatase 128 H (38-126) U/L Total Protein 6.9 (6.3-8.2) g/dL Albumin 2.8 L (3.5-5.0) g/dL Disposition Clinical Impression: Superficial vein thrombosis Disposition: HOME SELF-CARE Condition: Stable Instructions (If sedation given, give patient instructions): Superficial Thrombophlebitis (ED) Additional Instructions: Please do follow-up with primary care physician in the next couple days for recheck. Return for increased pain, redness, swelling, worsening or change in symptoms or any other concerns. Continue aspirin. Is patient prescribed a controlled substance at d/c from ED?: No Referrals: Cecilia Tomlinson MD [Primary Care Provider] - 1-2 days Time of Disposition: 14:52
[2022-07-03 13:29] LABS: Albumin 2.8 g/dL (3.5-5.0); Calcium 8.3 mg/dL (8.4-10.2); Potassium 5.8 mmol/L (3.5-5.1); Total Bilirubin 0.4 mg/dL (0.2-1.3); Total Protein 6.9 g/dL (6.3-8.2)
--- NOTE | 2022-07-03 13:37 | US ---
EXAMINATION TYPE: US venous doppler duplex UE RT DATE OF EXAM: 07/03/2022 COMPARISON: NONE CLINICAL INDICATION: Male, 57 years old with history of pain; morbidly obese male who had outside US that reported DVT in right arm, pain and swelling to arm, recent hospital stay with multiple IV's in right arm SIDE PERFORMED: Right Right Arm: Negative for DVT superficial thrombus seen just inferior to antecubital fossa within cephalic vein - internal echoes with no flow and does not compress IMPRESSION: 1. No evidence for deep vein thrombosis of the right upper extremity. 2. Superficial thrombophlebitis of the cephalic vein near the elbow.
--- NOTE | 2022-07-03 13:42 | XR ---
EXAMINATION TYPE: XR chest 2V DATE OF EXAM: 07/03/2022 1:33 PM 06/17/2022 COMPARISON: Chest radiographs from TECHNIQUE: XR chest 2V Frontal and lateral views of the chest. CLINICAL INDICATION:Male, 57 years old with history of dvt; FINDINGS: Lungs/Pleura: Low lung volumes are present. There is no evidence of pleural effusion, focal consolida tion, or pneumothorax. Pulmonary vascularity: Unremarkable. Heart/mediastinum: Cardiomediastinal silhouette is enlarged and stable. Musculoskeletal: No acute osseous pathology. IMPRESSION: 1. Low lung volumes with a generalized hazy appearance which could represent atelectasis versus pulm onary edema correlate with serum BNP. 2. Cardiomegaly similar to prior.
[2022-07-03 14:00] LABS: Anisocytosis Slight; Basophils % (A) 0 %; Eosinophils # (A) 0.2 k/uL (0-0.7); Eosinophils % (A) 2 %; HCT 30.1 % (39.0-53.0); Hypochromasia Marked; Lymphocytes # (A) 0.6 k/uL (1.0-4.8); Lymphocytes % (A) 5 %; MCH 27.6 pg (25.0-35.0); MCHC 28.7 g/dL (31.0-37.0); MCV 96.1 fL (80.0-100.0); Macrocytosis Slight; Mean Platelet Volume 7.9; Monocytes # (A) 0.5 k/uL (0-1.0); Monocytes % (A) 4 %; Neutrophils # (A) 11.7 k/uL (1.3-7.7); Neutrophils % (A) 90 %; Platelet Count 373 k/uL (150-450); Poikilocytosis Marked; RBC 3.13 m/uL (4.30-5.90); RDW 17.4 % (11.5-15.5)
[2022-07-03 14:18] LABS: HGB 8.6 gm/dL (13.0-17.5)
[2022-07-03 14:19] LABS: INR 1.1 (<1.2); Partial Thromboplastin Time 22.5 sec (22.0-30.0)
[2022-07-03] MEDS ORDERED: HYDROcodone/APAP 10-325MG 1 EACH TAB PO ONE (14:51)
[2022-07-03 17:28] VITALS: BP 143/93; PULSE 73
== END 2022-07-03 17:28 | disposition home or self-care (01) ==
LOC: EC 12:16
DX: I82.813 Embolism and thrombosis of superficial veins of lower extremities, bilateral (principal); I11.0 Hypertensive heart disease with heart failure; I50.9 Heart failure, unspecified; I25.10 Atherosclerotic heart disease of native coronary artery without angina pectoris; E78.5 Hyperlipidemia, unspecified; E11.9 Type 2 diabetes mellitus without complications; Z86.73 Personal history of transient ischemic attack (TIA), and cerebral infarction without residual deficits; F41.9 Anxiety disorder, unspecified; F32.A Depression, unspecified; Z88.0 Allergy status to penicillin; Z91.010 Allergy to peanuts; Z91.048 Other nonmedicinal substance allergy status; Z79.82 Long term (current) use of aspirin; Z79.899 Other long term (current) drug therapy
CPT/HCPCS: 36415; 71046; 80053; 85025; 85610; 85730; 99285